=== PATIENT | male | born 1945 | race Caucasian/White ===

== ENCOUNTER 2020-05-22 12:53 | Outpatient (REF) | payer MEDICARE, OTHER, SELFPAY | END 2020-05-22 12:54 | disposition home or self-care (01) | LOC: HO.LAB 12:53 | PROVIDERS: Visit Provider Internal Medicine | DX: Z20.828 Contact with and (suspected) exposure to other viral communicable diseases (principal) | CPT/HCPCS: C9803; U0003 ==

== ENCOUNTER 2020-10-15 14:16 | Outpatient (REF) | payer MEDICARE, OTHER, SELFPAY ==
[2020-10-15 14:20] LABS: MANUAL DIFF FLAG NO
[2020-10-15 14:26] LABS: Basophils Percent Auto 0.6 % (0-2); Eosinophils Absolute Auto 0.1 X10*3/uL (0.0-0.4); Eosinophils Percent Auto 1.4 % (0-4); Hematocrit 49.2 % (42-52); Hemoglobin 16.4 g/dl (14.0-18.0); Imm Gran Abs Auto 0.02 X10*3/uL (0.00-0.03); Imm Gran Pct Auto 0.3 % (0.0-0.4); Lymphocytes Percent Auto 31.1 % (20-40); Mean Corpuscular HGB Conc 33.3 g/dl (31.0-36.0); Mean Corpuscular Hemoglobin 31.4 pg (27.0-33.0); Mean Corpuscular Volume 94.1 fL (80-98); Mean Platelet Volume 9.6 fL (9.4-12.4); Monocytes Absolute Auto 0.6 X10*3/uL (0.1-1.2); Monocytes Percent Auto 9.5 % (2-11); Neutrophils Absolute Auto 3.7 X10*3/uL (2.0-8.3); Neutrophils Percent Auto 57.1 % (45-73); Platelet Count 184 X10*3/uL (160-400); Red Blood Count 5.23 X10*6/uL (4.60-5.80); Red Cell Distribution Width 13.3 % (11.0-16.0); White Blood Count 6.4 X10*3/uL (4.8-10.8)
[2020-10-15 14:38] LABS: Glucose Urine UA NEG (NEG); Leukocyte Esterase Urine NEG (NEG); Nitrite Urine NEG (NEG); Urine Blood NEG (NEG); Urine Ketones NEG (NEG); Urine Protein NEG (NEG-TRACE)
[2020-10-15 14:43] LABS: Appearance Urine CLEAR; Color Urine YELLOW; Estimated Average Glucose 105 mg/dL; Hemoglobin A1c % 5.3 %
[2020-10-15 15:01] LABS: Creatinine Urine 133.07 mg/dL; Microalbum/Creatinine Ratio Ur 5.2 ug/mg cr
[2020-10-15 15:04] LABS: Alanine Aminotransferase 29 U/L (0-40); Albumin Level 4.4 g/dL (3.5-5.0); Alkaline Phosphatase 95 U/L (39-117); Anion Gap 15 (12-20); Aspartate Amino Transferase 22 U/L (5-37); Bilirubin Total 0.7 mg/dL (0.0-1.0); Blood Urea Nitrogen 15 mg/dL (9-16); Calcium 9.1 mg/dL (8.4-10.2); Carbon Dioxide 24 mmol/L (22-29); Chloride 107 mmol/L (96-108); Cholesterol 130 mg/dL; Estimated Glomerular Filt Rate > 60; Glucose Fasting 102 mg/dL (60-99); HDL Cholesterol 37 mg/dL; LDL Cholesterol Calculated 62 mg/dl; Sodium 142 mmol/L (135-145); Total Protein 6.8 g/dL (6.5-8.0); Triglycerides 158 mg/dL
[2020-10-15 15:26] LABS: PSA,Total (Free>4and<10) 5.18 ng/mL (0.00-4.00); Vitamin D 25-OH Total 37.2 ng/mL (>30)
[2020-10-15 15:27] LABS: Reflex LDLD? No
[2020-10-16 11:12] LABS: Free Prostate Spec Ag 0.9 ng/mL; Percent Free Prostate Spec Ag 19 % (calc) (>25); Prostate Specific Ag Total 4.7 ng/mL (< OR = 4.0)
== END 2020-10-15 14:17 | disposition home or self-care (01) ==
LOC: HO.LNP 14:16
PROVIDERS: Visit Provider Internal Medicine
DX: D69.6 Thrombocytopenia, unspecified (principal); R31.9 Hematuria, unspecified; E55.9 Vitamin D deficiency, unspecified; R73.03 Prediabetes; E78.00 Pure hypercholesterolemia, unspecified; R97.20 Elevated prostate specific antigen [PSA]; Z12.5 Encounter for screening for malignant neoplasm of prostate
CPT/HCPCS: 80053; 80061; 81003; 82043; 82306; 83036; 84153; 84154; 85025

== ENCOUNTER 2021-05-28 21:27 | Inpatient (IN) | payer MEDICARE, MEDICAID, SELFPAY ==
--- NOTE | ~2021-05-28 | XR_ITS ---
EXAMINATION: XR CHEST CLINICAL INFORMATION: Hypernatremia COMPARISON: None TECHNIQUE: Frontal view of the chest was obtained. FINDINGS: The lungs are hypoinflated. There is mild patchy and streaky left basilar airspace opacity. Right lung appears clear. No evidence of pneumothorax, pleural effusion, or pulmonary edema. The cardiomediastinal contour is unremarkable. No acute osseous findings are seen. XR/XR chest 1V IMPRESSION: Mild patchy and streaky left basilar opacity which could reflect atelectasis in the setting of low lung volumes, though developing consolidation would be difficult to exclude. Short-term radiographic follow-up may be helpful.
[2021-05-28 21:40] VITALS: BP 108/50; PULSE 99; RESP 17; O2SAT 95; BMI 29.8
--- NOTE | 2021-05-28 21:45 | ECG_ITS ---
Test Reason : HIGH SODIUM Blood Pressure : / mmHG Vent. Rate : 097 BPM Atrial Rate : 097 BPM P-R Int : 142 ms QRS Dur : 082 ms QT Int : 342 ms P-R-T Axes : 052 -54 025 degrees QTc Int : 434 ms Normal sinus rhythm Left anterior fascicular block Inferior infarct , age undetermined Abnormal ECG No previous ECGs available Referred By: Estefania Brady Electronically Signed By:RICARDO DE LA CRUZ MD
--- NOTE | 2021-05-28 21:49 | ED_ITS ---
HPI - General Adult General Chief complaint: General Medical Stated complaint: low soduim Time Seen by Provider: 05/28/21 21:44 Source: EMS and RN notes reviewed Mode of arrival: EMS Limitations: physical limitation ( advanced dementia) History of Present Illness HPI narrative: 75-year-old male [facility] of low [facility]. Patient is bedbound, with advanced dementia, unable to provide history, history was obtained from old record. Patient reportedly is a full code. Unfortunately unable to obtain any history from this patient. Related Data Home Medications Medication Instructions Recorded Confirmed acyclovir 200 mg capsule 200 mg PO BID 05/28/21 05/28/21 aspirin 81 mg chewable tablet 81 mg PO DAILY 05/28/21 05/28/21 divalproex 125 mg capsule,delayed 375 mg PO TID 05/28/21 05/28/21 release sprinkle gabapentin 300 mg capsule 300 mg PO TID 05/28/21 05/28/21 melatonin 3 mg tablet 6 mg PO BEDTIME 05/28/21 05/28/21 olanzapine 5 mg disintegrating 5 mg PO BID PRN 05/28/21 05/28/21 tablet olanzapine 5 mg disintegrating 5 mg PO DAILY 05/28/21 05/28/21 tablet sennosides 8.6 mg-docusate sodium 1 tab PO DAILY 05/28/21 05/28/21 50 mg tablet (Senna-S) tamsulosin 0.4 mg capsule 0.4 mg PO BEDTIME 05/28/21 05/28/21 trazodone 50 mg tablet 25 mg PO BEDTIME PRN 05/28/21 05/28/21 trazodone 50 mg tablet 50 mg PO BEDTIME 05/28/21 05/28/21 Allergies Allergy/AdvReac Type Severity Reaction Status Date / Time No Known Allergies Allergy Verified 05/28/21 23:00 [No Known Allergies*] Review of Systems Review of Systems: All other systems are reviewed and are negative Constitutional: Reports as per HPI and Reports no additional constitutional complaints Eyes: Reports as per HPI and Reports no additional eye complaints Reports system reviewed and no additional complaints, except as documented Cardiovascular: Reports as per HPI and Reports no additional cardiovascular complaints Respiratory: Reports as per HPI and Reports no additional respiratory complaints Gastrointestinal: Reports as per HPI and Reports no additional gastrointestinal complaints Genitourinary: Reports no additional female genitourinary complaints Musculoskeletal: Reports no additional musculoskeletal complaints Skin/Breast: Reports system reviewed and no additional complaints, except as docu Psychiatric: Reports no additional psychiatric complaints Endocrine: Reports no additional endocrine complaints Hematologic/Lymphatic: Reports no additional hematologic/lymphatic complaints Allergic/Immunologic: Reports no additional allergic/immunologic complaints Reports system reviewed and no additional complaints, except as documented and Reports Abnormal speech present. [facility] Social History Social History Advance Directives: No Physical Exam Vital Signs: Vital Signs: Last Vital Signs Temp 99.9 F 05/28/21 22:08 Pulse 97 05/28/21 22:58 Resp 23 H 05/28/21 22:58 BP 141/75 H 05/28/21 22:58 Pulse Ox 95 05/28/21 22:58 Body Mass Index 29.8 vital signs have been reviewed as appeared to be correct. Blood pressure normal. Heart rate normal. Respiration rate normal. Temperature normal. Oxygen saturation normal. Appearance: Alert. No acute distress. Head: Normal external exam. Normocephalic. Atraumatic. No Thomas signs noted. No raccoon eyes noted Eyes: PERRLA. EOMI. Conjunctiva and sclera normal. Eyelids normal. ENT: TM's Normal. Pharynx normal. Uvula midline. Moist mucous membranes. No trismus noted. No drooling noted. No muffled voice noted. Neck: Normal inspection. Neck supple. FROM. No adenopathy. Thyroid Normal. No meningeal signs. No neck mass noted. CVS: Normal heart rate and rhythm. Heart sound normal. No murmurs noted. Pulses normal throughout. Respiratory: No respiratory distress. Painless inspiration. Breath sounds normal. No wheezes/rales/rhonchi noted. Chest nontender. No accessory muscle usage noted or decreased air movement noted. Abdomen: Soft and nontender. Bowel sounds normal in all 4 quadrants. No distention noted. No organomegaly noted. No visible injury noted. Back: No CVA tenderness. Full range of motion noted. Skin: Skin warm and dry. Normal skin color. Normal skin turgor. No rashes/lesions/lacerations noted. Extremities: No lower extremity edema. Extremities exhibit normal range of motion. Extremities nontender. Neuro: Cranial nerve exam: II-XII are grossly intact No motor deficit. No sensory deficit. Reflexes normal. Course Course Course Narrative: assessment and plan. 75-year-old male with history of advanced dementia [facility]. Case discussed with Dr. Man from [facility] who recommended to start the patient on D5 quarter normal saline at 200 cc per hour total of 2-3 L and repeat electrolytes in the morning. Medical Decision Making Medical Records Medical records reviewed: Yes I reviewed the patient's medical records. Lab Data Lab results reviewed: Yes I reviewed the patient's lab results. Result diagrams: 05/28/21 22:51 05/28/21 22:51 Labs: Lab Results 05/28/21 05/28/21 05/28/21 Range/Units 22:41 22:41 22:41 WBC (4.8-10.8) X10*3/uL RBC (4.60-5.80) X10*6/uL Hgb (14.0-18.0) g/dl Hct (42.0-52.0) % MCV (80.0-98.0) fL MCH (27.0-33.0) pg MCHC (31.0-36.0) g/dl RDW (11.0-16.0) % Plt Count (160-400) X10*3/uL MPV (9.4-12.4) fL Immature Gran % (Auto) (0.0-0.4) % Neut % (Auto) (45-73) % Lymph % (Auto) (20-40) % [place] % (Auto) (2-11) % Eos % (Auto) (0-4) % Baso % (Auto) (0-2) % Lymph # (Auto) (1.2-4.9) X10*3/uL [place] # (Auto) (0.1-1.2) X10*3/uL Eos # (Auto) (0.0-0.4) X10*3/uL Baso # (Auto) (0.0-0.2) X10*3/uL Abs Immat Gran (auto) (0.00-0.03) X10*3/uL Absolute Neuts (auto) (2.0-8.3) x10*3/uL Absolute Nucleated RBC (0.0-0.012) X10*3/uL Nucleated RBC % (auto) (0.0-0.2) /100WBC Sodium (135-145) mmol/L Potassium (3.3-5.1) mmol/L Chloride (96-108) mmol/L Carbon Dioxide (22-29) mmol/L Anion Gap (12-20) BUN (9-16) mg/dL Creatinine (0.5-1.4) mg/dL Estim Creat Clear Calc Estimated GFR Random Glucose (60-115) mg/dL Lactic Acid (0.5-2.0) mmol/L Calcium (8.4-10.2) mg/dL Total Bilirubin (0.0-1.0) mg/dL Direct Bilirubin (0.0-0.5) mg/dL AST (5-37) U/L ALT (0-40) U/L Alkaline Phosphatase (39-117) U/L Troponin I High Sens (<3.5-35.0) ng/L B-Natriuretic Peptide (<100) pg/mL Total Protein (6.5-8.0) g/dL Albumin (3.5-5.0) g/dL Lipase (8-78) U/L Urine Color DK YELLOW Urine Appearance CLEAR Urine pH 6.0 (5.0-8.0) Ur Specific [place] >= 1.030 H (1.005-1.025) Urine Protein TRACE (NEG-TRACE) MG/DL Urine Glucose (UA) NEG (NEG) MG/DL Urine Ketones 15 (NEG) MG/DL Urine Blood NEG (NEG) Urine Nitrite NEG (NEG) Ur Leukocyte Esterase NEG (NEG) Urine Osmolality (373-1093) mosm/kg Ur Random Sodium 24.0 mmol/L Ur Random Potassium 96.6 mmol/L COVID-19 ([facility]) Negative (Negative) COVID-19 Clin Com See Note 05/28/21 05/28/21 05/28/21 Range/Units 22:41 22:51 22:51 WBC 6.9 (4.8-10.8) X10*3/uL RBC 5.49 (4.60-5.80) X10*6/uL Hgb 17.1 (14.0-18.0) g/dl Hct 53.8 H (42.0-52.0) % MCV 98.0 (80.0-98.0) fL MCH 31.1 (27.0-33.0) pg MCHC 31.8 (31.0-36.0) g/dl RDW 14.4 (11.0-16.0) % Plt Count 142 L (160-400) X10*3/uL MPV 10.1 (9.4-12.4) fL Immature Gran % (Auto) 0.3 (0.0-0.4) % Neut % (Auto) 65.0 (45-73) % Lymph % (Auto) 18.8 L (20-40) % [place] % (Auto) 12.4 H (2-11) % Eos % (Auto) 2.9 (0-4) % Baso % (Auto) 0.6 (0-2) % Lymph # (Auto) 1.3 (1.2-4.9) X10*3/uL [place] # (Auto) 0.9 (0.1-1.2) X10*3/uL Eos # (Auto) 0.2 (0.0-0.4) X10*3/uL Baso # (Auto) 0.0 (0.0-0.2) X10*3/uL Abs Immat Gran (auto) 0.02 (0.00-0.03) X10*3/uL Absolute Neuts (auto) 4.5 (2.0-8.3) x10*3/uL Absolute Nucleated RBC 0.000 (0.0-0.012) X10*3/uL Nucleated RBC % (auto) 0.0 (0.0-0.2) /100WBC Sodium 158 H (135-145) mmol/L Potassium 3.6 (3.3-5.1) mmol/L Chloride 117 H (96-108) mmol/L Carbon Dioxide 32 H (22-29) mmol/L Anion Gap 13 (12-20) BUN 43 H D (9-16) mg/dL Creatinine 0.91 (0.5-1.4) mg/dL Estim Creat Clear Calc 87.1 Estimated GFR > 60 Random Glucose 116 H (60-115) mg/dL Lactic Acid (0.5-2.0) mmol/L Calcium 9.1 (8.4-10.2) mg/dL Total Bilirubin 0.5 (0.0-1.0) mg/dL Direct Bilirubin 0.2 (0.0-0.5) mg/dL AST 39 H D (5-37) U/L ALT 52 H (0-40) U/L Alkaline Phosphatase 102 (39-117) U/L Troponin I High Sens (<3.5-35.0) ng/L B-Natriuretic Peptide (<100) pg/mL Total Protein 6.4 L (6.5-8.0) g/dL Albumin 3.7 (3.5-5.0) g/dL Lipase 17 (8-78) U/L Urine Color Urine Appearance Urine pH (5.0-8.0) Ur Specific [place] (1.005-1.025) Urine Protein (NEG-TRACE) MG/DL Urine Glucose (UA) (NEG) MG/DL Urine Ketones (NEG) MG/DL Urine Blood (NEG) Urine Nitrite (NEG) Ur Leukocyte Esterase (NEG) Urine Osmolality 1115 H (373-1093) mosm/kg Ur Random Sodium mmol/L Ur Random Potassium mmol/L COVID-19 ([facility]) (Negative) COVID-19 Clin Com 05/28/21 05/28/21 05/28/21 Range/Units 22:51 22:51 22:51 WBC (4.8-10.8) X10*3/uL RBC (4.60-5.80) X10*6/uL Hgb (14.0-18.0) g/dl Hct (42.0-52.0) % MCV (80.0-98.0) fL MCH (27.0-33.0) pg MCHC (31.0-36.0) g/dl RDW (11.0-16.0) % Plt Count (160-400) X10*3/uL MPV (9.4-12.4) fL Immature Gran % (Auto) (0.0-0.4) % Neut % (Auto) (45-73) % Lymph % (Auto) (20-40) % [place] % (Auto) (2-11) % Eos % (Auto) (0-4) % Baso % (Auto) (0-2) % Lymph # (Auto) (1.2-4.9) X10*3/uL [place] # (Auto) (0.1-1.2) X10*3/uL Eos # (Auto) (0.0-0.4) X10*3/uL Baso # (Auto) (0.0-0.2) X10*3/uL Abs Immat Gran (auto) (0.00-0.03) X10*3/uL Absolute Neuts (auto) (2.0-8.3) x10*3/uL Absolute Nucleated RBC (0.0-0.012) X10*3/uL Nucleated RBC % (auto) (0.0-0.2) /100WBC Sodium (135-145) mmol/L Potassium (3.3-5.1) mmol/L Chloride (96-108) mmol/L Carbon Dioxide (22-29) mmol/L Anion Gap (12-20) BUN (9-16) mg/dL Creatinine (0.5-1.4) mg/dL Estim Creat Clear Calc Estimated GFR Random Glucose (60-115) mg/dL Lactic Acid 2.8 H* (0.5-2.0) mmol/L Calcium (8.4-10.2) mg/dL Total Bilirubin (0.0-1.0) mg/dL Direct Bilirubin (0.0-0.5) mg/dL AST (5-37) U/L ALT (0-40) U/L Alkaline Phosphatase (39-117) U/L Troponin I High Sens 8.4 (<3.5-35.0) ng/L B-Natriuretic Peptide < 10 (<100) pg/mL Total Protein (6.5-8.0) g/dL Albumin (3.5-5.0) g/dL Lipase (8-78) U/L Urine Color Urine Appearance Urine pH (5.0-8.0) Ur Specific [place] (1.005-1.025) Urine Protein (NEG-TRACE) MG/DL Urine Glucose (UA) (NEG) MG/DL Urine Ketones (NEG) MG/DL Urine Blood (NEG) Urine Nitrite (NEG) Ur Leukocyte Esterase (NEG) Urine Osmolality (373-1093) mosm/kg Ur Random Sodium mmol/L Ur Random Potassium mmol/L COVID-19 ([facility]) (Negative) COVID-19 Clin Com Imaging Data Chest x-ray: Radiologist's impression: Mild patchy and streaky left basilar opacity which could reflect atelectasis in the setting of low lung volumes, though developing consolidation would be difficult to exclude. Short-term radiographic follow-up may be helpful. ? ECG Data Attestation: I personally reviewed and interpreted this ECG as follows: Interpretation: Normal sinus rhythm at 97 beats per minute, left axis deviation, normal intervals. Discharge Plan Discharge Clinical Impression: Acute hypernatremia Patient Disposition: Admitted As Inpatient Prescriptions: No Action trazodone 50 mg Tablet 50 mg PO BEDTIME RF: 0 trazodone 50 mg Tablet 25 mg PO BEDTIME PRN (Reason: Insomnia) RF: 0 sennosides-docusate sodium [Senna-S] 8.6-50 mg Tablet 1 tab PO DAILY RF: 0 melatonin 3 mg Tablet 6 mg PO BEDTIME RF: 0 tamsulosin 0.4 mg Capsule 0.4 mg PO BEDTIME RF: 0 gabapentin 300 mg Capsule 300 mg PO TID RF: 0 aspirin 81 mg Tablet,Chewable 81 mg PO DAILY RF: 0 acyclovir 200 mg Capsule 200 mg PO BID RF: 0 divalproex 125 mg Capsule, Delayed Rel Sprinkle 375 mg PO TID RF: 0 olanzapine 5 mg Tablet,Disintegrating 5 mg PO DAILY RF: 0 olanzapine 5 mg Tablet,Disintegrating 5 mg PO BID PRN (Reason: aggressive behaviors) RF: 0
[2021-05-28 22:08] VITALS: TEMP 37.7
--- NOTE | 2021-05-28 22:26 | PHA.MEDREC ---
Pharmacy Consult ? Medication Reconciliation Pharmacy has completed the medication reconciliation.
[2021-05-28 22:55] LABS: Appearance Urine CLEAR; Color Urine DK YELLOW; Glucose Urine UA NEG (NEG); Leukocyte Esterase Urine NEG (NEG); Nitrite Urine NEG (NEG); Specific Gravity - Urine >= 1.030 (1.005-1.025); Urine Blood NEG (NEG); Urine Ketones 15 MG/DL (NEG); Urine Protein TRACE MG/DL (NEG-TRACE)
[2021-05-28 22:56] LABS: MANUAL DIFF FLAG NO
[2021-05-28 22:57] LABS: Basophils Percent Auto 0.6 % (0-2); Eosinophils Absolute Auto 0.2 X10*3/uL (0.0-0.4); Eosinophils Percent Auto 2.9 % (0-4); Hematocrit 53.8 % (42.0-52.0); Hemoglobin 17.1 g/dl (14.0-18.0); Imm Gran Abs Auto 0.02 X10*3/uL (0.00-0.03); Imm Gran Pct Auto 0.3 % (0.0-0.4); Lymphocytes Absolute Auto 1.3 X10*3/uL (1.2-4.9); Lymphocytes Percent Auto 18.8 % (20-40); Mean Corpuscular HGB Conc 31.8 g/dl (31.0-36.0); Mean Corpuscular Hemoglobin 31.1 pg (27.0-33.0); Mean Platelet Volume 10.1 fL (9.4-12.4); Monocytes Absolute Auto 0.9 X10*3/uL (0.1-1.2); Monocytes Percent Auto 12.4 % (2-11); Neutrophils Absolute Auto 4.5 x10*3/uL (2.0-8.3); Platelet Count 142 X10*3/uL (160-400); Red Blood Count 5.49 X10*6/uL (4.60-5.80); Red Cell Distribution Width 14.4 % (11.0-16.0); White Blood Count 6.9 X10*3/uL (4.8-10.8)
[2021-05-28 22:58] VITALS: BP 141/75; PULSE 97; RESP 23; O2SAT 95
[2021-05-28 23:01] LABS: Potassium Urine Random 96.6 mmol/L
[2021-05-28 23:03] LABS: COVID-19 Test Negative (Negative)
[2021-05-28 23:08] LABS: Osmolality Urine 1115 mosm/kg (373-1093)
[2021-05-28 23:19] LABS: Alanine Aminotransferase 52 U/L (0-40); Albumin Level 3.7 g/dL (3.5-5.0); Alkaline Phosphatase 102 U/L (39-117); Anion Gap 13 (12-20); Aspartate Amino Transferase 39 U/L (5-37); B Type Natriuretic Peptide < 10 pg/mL (<100); Bilirubin Direct 0.2 mg/dL (0.0-0.5); Bilirubin Total 0.5 mg/dL (0.0-1.0); Blood Urea Nitrogen 43 mg/dL (9-16); Calcium 9.1 mg/dL (8.4-10.2); Carbon Dioxide 32 mmol/L (22-29); Chloride 117 mmol/L (96-108); Creatinine Clr Calc Pharmacy 87.1; Estimated Glomerular Filt Rate > 60; Glucose Random 116 mg/dL (60-115); Lactic Acid 2.8 mmol/L (0.5-2.0); Lipase 17 U/L (8-78); Potassium 3.6 mmol/L (3.3-5.1); Sodium 158 mmol/L (135-145); Total Protein 6.4 g/dL (6.5-8.0); Troponin-I High Sensitivity 8.4 ng/L (<3.5-35.0)
--- NOTE | 2021-05-28 23:43 | PC.NURSE ---
call out to renal
[2021-05-29] VITALS (7 sets, daily range): BP systolic 99–126; BP diastolic 58–93; PULSE 80–98; RESP 15–21; TEMP 36.1–37.7; O2SAT 94–96
--- NOTE | 2021-05-29 00:15 | PM.IMHP ---
History of Present Illness Date of Service: 05/29/21 Chief Complaint: Hypernatremia 75-year-old male with a past medical history of Alzheimer's dementia with behavioral issues, BPH, history of recurrent UTIs, urinary retention, recent history of COVID-19 infection in March of 2021; history of recurrent falls, of history of seizure; presented to the hospital today with a chief complaint of drowsiness/lethargy/elevated sodium levels noted the [facility]. Patient is drowsy lethargic, unable to provide any information. Protecting airways. Breathing comfortably. Spoke to the patient's daughter Cami who is the healthcare proxy mentioned that since March patient has been gradually declining; patient had multiple falls and he was admitted to [facility] in March when he was diagnosed with COVID-19 infection, urinary retention, UTI-patient during that admission had behavioral issues and was in the psych unit for his weak and subsequently sent to the rehab place; base he had a fall with head strike on March 27, 2021, sent to the [facility]-in the ER patient had seizure; and subsequently patient was admitted to the floors and with improvement and clinically patient was medically cleared but was unable to place the patient any rehab until May 24, 2021; Today patient's daughter received a call from the [facility] mentioned that patient is drowsy lethargic and was noted to have elevated sodium levels on the labs, unable to obtain IV access and mentioning patient being sent to the hospital for further evaluation. Patient started mentioned that when she saw the patient today seems to be drowsy lethargic and doses off; Mentioned that before septum were used to walk with the help of a walker but lately he is mostly bedbound. Mentioned that he had few speech and swallow evaluations and was finally recommended solid diet. Review of all other systems is limited given patient's advanced dementia. ER course: Per ER team patient noted to be drowsy, unable to provide any history, on labs noted to have severely elevated sodium of 158-discussed Dr. esquivel from Nephrology who recommended to 200 cc of D5 1/4 NS and repeat sodium levels in 6 hours. PMFSH Pertinent family history: pt unable to provide info Social History Advance Directives: No Meds Allergies Allergy/AdvReac Type Severity Reaction Status Date / Time No Known Allergies Allergy Verified 05/28/21 23:00 [No Known Allergies*] Active Medications: Current Medications Acetaminophen (Acetaminophen 325 Mg Tablet) 650 mg PO Q6H PRN PRN Reason: Pain, Mild (Pain Scale 1-3) Acyclovir (Acyclovir 200 Mg Capsule) 200 mg PO BID [facility] Aspirin (Aspirin 81 Mg Tab.Chew) 81 mg PO DAILY [facility] Divalproex Sodium (Divalproex Sodium Sprinkles 125 Mg ) 375 mg PO TID [facility] Gabapentin (Gabapentin 300 Mg Capsule) 300 mg PO TID [facility] Heparin Sodium (Porcine) (Heparin Sodium,Porcine 5,000 Unit/Ml Vial) 5,000 unit SUBCUT Q8H [facility] Dextrose/Sodium Chloride (D51/4ns) 1,000 mls @ 200 mls/hr IVCONT .Q5H [facility] Stop: 05/29/21 09:44 Melatonin (Melatonin 3 Mg Tablet) 6 mg PO BEDTIME PRN PRN Reason: Insomnia Melatonin (Melatonin 3 Mg Tablet) 6 mg PO BEDTIME [facility] Olanzapine (Olanzapine 5 Mg Tablet) 5 mg PO BID PRN PRN Reason: aggressive behaviors Olanzapine (Olanzapine 5 Mg Tablet) 5 mg PO DAILY [facility] Pharmacy Consult (Consult Rx Perform Med Rec) 1 each MISCELLANE ONCE PRN PRN Reason: Consult order Senna/Docusate Sodium (Sennosides/Docusate Sodium Tablet) 1 tab PO DAILY [facility] Sodium Chloride (0.9 % Sodium Chloride Flush 3 Ml Syringe) 3 ml IVFLUSH QSHIFT [facility] Tamsulosin HCl (Tamsulosin Hcl 0.4 Mg Capsule) 0.4 mg PO BEDTIME [facility] Trazodone HCl (Trazodone Hcl 25 Mg Halftab) 25 mg PO BEDTIME PRN PRN Reason: Insomnia Trazodone HCl (Trazodone Hcl 50 Mg Tablet) 50 mg PO BEDTIME [facility] Home Medications Medication Instructions Recorded Confirmed Last Taken Type acyclovir 200 mg capsule 200 mg PO BID 05/28/21 05/28/21 Unknown History aspirin 81 mg chewable tablet 81 mg PO DAILY 05/28/21 05/28/21 05/27/21 History divalproex 125 mg capsule,delayed 375 mg PO TID 05/28/21 05/28/21 05/27/21 History release sprinkle gabapentin 300 mg capsule 300 mg PO TID 05/28/21 05/28/21 05/28/21 History melatonin 3 mg tablet 6 mg PO BEDTIME 05/28/21 05/28/21 05/27/21 History olanzapine 5 mg disintegrating 5 mg PO BID PRN 05/28/21 05/28/21 Unknown History tablet olanzapine 5 mg disintegrating 5 mg PO DAILY 05/28/21 05/28/21 05/28/21 History tablet sennosides 8.6 mg-docusate sodium 1 tab PO DAILY 05/28/21 05/28/21 05/28/21 History 50 mg tablet (Senna-S) tamsulosin 0.4 mg capsule 0.4 mg PO BEDTIME 05/28/21 05/28/21 05/27/21 History trazodone 50 mg tablet 25 mg PO BEDTIME PRN 05/28/21 05/28/21 Unknown History trazodone 50 mg tablet 50 mg PO BEDTIME 05/28/21 05/28/21 05/27/21 History Physical Exam Vital Signs and Narrative: Vital Signs: Last Vital Signs Temp 99.9 F 05/28/21 22:08 Pulse 97 05/28/21 22:58 Resp 23 H 05/28/21 22:58 BP 141/75 H 05/28/21 22:58 Pulse Ox 95 05/28/21 22:58 Body Mass Index 29.8 Gen: Appears be in no acute distress HEENT: NCAT, Moist mucosa. Pulmonary: Course breath sounds, fair air entry CVS: Normal S1-S2 Abdomen: BS+, Soft, Nontender Extremities: Warm well perfused Neuro: Drowsy and lethargic Results Labs CBC and Chem 7: 05/29/21 05:54 05/29/21 05:54 Labs: Laboratory Results - last 24 hr 05/28/21 05/28/21 05/28/21 22:41 22:41 22:41 MCV MCH MCHC RDW Plt Count MPV Immature Gran % (Auto) Neut % (Auto) Lymph % (Auto) [place] % (Auto) Eos % (Auto) Baso % (Auto) Lymph # (Auto) [place] # (Auto) Eos # (Auto) Baso # (Auto) Abs Immat Gran (auto) Absolute Neuts (auto) Absolute Nucleated RBC Nucleated RBC % (auto) Anion Gap Estim Creat Clear Calc Estimated GFR Random Glucose Lactic Acid Calcium Total Bilirubin Direct Bilirubin AST ALT Alkaline Phosphatase Troponin I High Sens B-Natriuretic Peptide Total Protein Albumin Lipase Urine Color DK YELLOW Urine Appearance CLEAR Urine pH 6.0 Ur Specific [place] >= 1.030 H Urine Protein TRACE Urine Glucose (UA) NEG Urine Ketones 15 Urine Blood NEG Urine Nitrite NEG Ur Leukocyte Esterase NEG Urine Osmolality Ur Random Sodium 24.0 Ur Random Potassium 96.6 COVID-19 ([facility]) Negative COVID-19 Clin Com See Note 05/28/21 05/28/21 05/28/21 22:41 22:51 22:51 MCV 98.0 MCH 31.1 MCHC 31.8 RDW 14.4 Plt Count 142 L MPV 10.1 Immature Gran % (Auto) 0.3 Neut % (Auto) 65.0 Lymph % (Auto) 18.8 L [place] % (Auto) 12.4 H Eos % (Auto) 2.9 Baso % (Auto) 0.6 Lymph # (Auto) 1.3 [place] # (Auto) 0.9 Eos # (Auto) 0.2 Baso # (Auto) 0.0 Abs Immat Gran (auto) 0.02 Absolute Neuts (auto) 4.5 Absolute Nucleated RBC 0.000 Nucleated RBC % (auto) 0.0 Anion Gap 13 Estim Creat Clear Calc 87.1 Estimated GFR > 60 Random Glucose 116 H Lactic Acid Calcium 9.1 Total Bilirubin 0.5 Direct Bilirubin 0.2 AST 39 H D ALT 52 H Alkaline Phosphatase 102 Troponin I High Sens B-Natriuretic Peptide Total Protein 6.4 L Albumin 3.7 Lipase 17 Urine Color Urine Appearance Urine pH Ur Specific [place] Urine Protein Urine Glucose (UA) Urine Ketones Urine Blood Urine Nitrite Ur Leukocyte Esterase Urine Osmolality 1115 H Ur Random Sodium Ur Random Potassium COVID-19 ([facility]) COVID-19 Clin Com 05/28/21 05/28/21 05/28/21 22:51 22:51 22:51 MCV MCH MCHC RDW Plt Count MPV Immature Gran % (Auto) Neut % (Auto) Lymph % (Auto) [place] % (Auto) Eos % (Auto) Baso % (Auto) Lymph # (Auto) [place] # (Auto) Eos # (Auto) Baso # (Auto) Abs Immat Gran (auto) Absolute Neuts (auto) Absolute Nucleated RBC Nucleated RBC % (auto) Anion Gap Estim Creat Clear Calc Estimated GFR Random Glucose Lactic Acid 2.8 H* Calcium Total Bilirubin Direct Bilirubin AST ALT Alkaline Phosphatase Troponin I High Sens 8.4 B-Natriuretic Peptide < 10 Total Protein Albumin Lipase Urine Color Urine Appearance Urine pH Ur Specific [place] Urine Protein Urine Glucose (UA) Urine Ketones Urine Blood Urine Nitrite Ur Leukocyte Esterase Urine Osmolality Ur Random Sodium Ur Random Potassium COVID-19 ([facility]) COVID-19 Clin Com Imaging Radiologist's Impressions: Impressions Chest X-Ray 05/28/21 21:44 IMPRESSION: Mild patchy and streaky left basilar opacity which could reflect atelectasis in the setting of low lung volumes, though developing consolidation would be difficult to exclude. Short-term radiographic follow-up may be helpful. Assessment and Plan (1) Acute hypernatremia: Status: Acute (2) Dementia: Status: Acute 75-year-old male with a past medical history of Alzheimer's dementia with behavioral issues, BPH, history of recurrent UTIs, urinary retention, recent history of COVID-19 infection in March of 2021; history of recurrent falls, of history of seizure; presented to the hospital today with a chief complaint of drowsiness/lethargy/elevated sodium levels noted the [facility]. Hypernatremia: Nephrology was notified. Recommended D5 1/4 NSS cc per hour. Repeat sodium levels. History of seizure: Patient on Depakote. Will continue. Seizure precautions/aspiration precautions. Patient failed bedside swallow screen. Depakote changed to IV valproic acid Speech and swallow eval History of dementia with behavioral concerns: Patient on Zyprexa. Will continue. Abnormal chest x-ray: Chest x-ray showed left basilar patchy infiltrate-atelectasis versus developing consolidation. Patient has no fever or leukocytosis. Will follow the fever curve. Hold antibiotics for now. DVT prophylaxis: Subcu heparin Code status: DNR/DNI. Discussed with the patient's healthcare proxy/daughter-Cami. Healthcare proxy invoked Off Note: Things to follow up by day hospitalist once Care taken over at 7AM on 05/29/21: ->Sodium levels Renal consult Inputs Swallow eval Quality Stroke Does the patient have a stroke diagnosis?: No VTE Prior VTE?: No VTE Risk Level:: Medical - moderate - high VTE Device Contraindication: Treatment Not Indicated VTE Drug Contraindication: N/A - Med Ordered
[2021-05-29 00:41] LABS: Chloride Urine Random < 20.0 mmol/L
[2021-05-29 00:54] LABS: Reflex Lactate? Lactic Acid Added
[2021-05-29 01:13] LABS: ~Lactic Acid-LAB USE ONLY 1.8 mmol/L (0.5-2.0)
--- NOTE | 2021-05-29 01:14 | PC.NURSE ---
Dr Elliott aware of pt fail of swallow screen
[2021-05-29] MEDS: Dextrose 5 % and 0.2 % NaCl 1,000 ML 200 ML IVCONT ×2 (01:15→06:25)
[2021-05-29] MEDS: Heparin Sodium,Porcine 5,000 UNIT/ML VIAL 5000 UNIT SUBCUT ×3 (01:17→14:58)
[2021-05-29 01:22] LABS: Anion Gap 14 (12-20); Blood Urea Nitrogen 43 mg/dL (9-16); Calcium 8.8 mg/dL (8.4-10.2); Carbon Dioxide 30 mmol/L (22-29); Chloride 119 mmol/L (96-108); Creatinine Clr Calc Pharmacy 91.1; Estimated Glomerular Filt Rate > 60; Glucose Random 71 mg/dL (60-115); Potassium 4.1 mmol/L (3.3-5.1); Sodium 159 mmol/L (135-145)
--- NOTE | 2021-05-29 01:39 | PC.NURSE ---
This RN contacted [facility] for crisis intake over phone. Per Janeth at [facility], executive relations specialist will call back to perform intake as they are unavailable to take the call at this time. No timeframe given for call back. Report given to MICHAEL Angulo.
[2021-05-29 03:31] LABS: Anion Gap 10 (12-20); Blood Urea Nitrogen 43 mg/dL (9-16); Calcium 8.6 mg/dL (8.4-10.2); Carbon Dioxide 32 mmol/L (22-29); Chloride 117 mmol/L (96-108); Creatinine Clr Calc Pharmacy 92.1; Estimated Glomerular Filt Rate > 60; Glucose Random 135 mg/dL (60-115); Potassium 3.4 mmol/L (3.3-5.1); Sodium 156 mmol/L (135-145)
[2021-05-29 06:21] LABS: Basophils Percent Auto 0.6 % (0-2); Eosinophils Absolute Auto 0.2 X10*3/uL (0.0-0.4); Eosinophils Percent Auto 2.8 % (0-4); Hemoglobin 15.6 g/dl (14.0-18.0); Imm Gran Abs Auto 0.02 X10*3/uL (0.00-0.03); Imm Gran Pct Auto 0.3 % (0.0-0.4); MANUAL DIFF FLAG SCAN; PLT CLUMP 1; Red Cell Distribution Width 14.3 % (11.0-16.0); SCAN SMEAR FLAG 1
[2021-05-29 06:23] LABS: Hematocrit 50.5 % (42.0-52.0); Lymphocytes Absolute Auto 1.6 X10*3/uL (1.2-4.9); Lymphocytes Percent Auto 21.9 % (20-40); Mean Corpuscular HGB Conc 30.9 g/dl (31.0-36.0); Mean Corpuscular Hemoglobin 30.1 pg (27.0-33.0); Mean Corpuscular Volume 97.5 fL (80.0-98.0); Mean Platelet Volume 11.1 fL (9.4-12.4); Monocytes Absolute Auto 0.9 X10*3/uL (0.1-1.2); Monocytes Percent Auto 12.9 % (2-11); Neutrophils Absolute Auto 4.4 x10*3/uL (2.0-8.3); Neutrophils Percent Auto 61.5 % (45-73); Platelet Count 111 X10*3/uL (160-400); Red Blood Count 5.18 X10*6/uL (4.60-5.80); White Blood Count 7.1 X10*3/uL (4.8-10.8)
[2021-05-29 06:25] LABS: Anion Gap 11 (12-20); Calcium 8.4 mg/dL (8.4-10.2); Carbon Dioxide 30 mmol/L (22-29); Chloride 117 mmol/L (96-108); Creatinine Clr Calc Pharmacy 81.7; Estimated Glomerular Filt Rate > 60; Glucose Random 149 mg/dL (60-115); Magnesium 2.4 mg/dL (1.6-2.6); Potassium 3.9 mmol/L (3.3-5.1); Sodium 154 mmol/L (135-145)
[2021-05-29 07:39] LABS: SLIDE REVIEW VERIFIED
--- NOTE | 2021-05-29 09:28 | PC.NURSE ---
pt alert, oriented to self. vss. Speech at bedside doing swallow study at this time. pt's PO meds held until swallow study completed. fluids infusing without difficulty, pt tolerating well. will follow-up with speech.
[2021-05-29 09:39] LABS: Blood Urea Nitrogen 40 mg/dL (9-16)
[2021-05-29] MEDS: OLANZapine 5 MG TABLET PO (09:51)
[2021-05-29] MEDS: Aspirin 81 MG TAB.CHEW PO (09:51)
[2021-05-29] MEDS: Gabapentin 300 MG CAPSULE PO ×2 (09:51→14:39)
[2021-05-29] MEDS: Acyclovir 200 MG CAPSULE PO (09:52)
[2021-05-29] MEDS: Sennosides/Docusate Sodium TABLET 1 TAB PO (09:52)
--- NOTE | 2021-05-29 10:06 | PC.NURSE ---
po challenge done by speech who recommends puree soft diet. pt given meds as documented. pt unable to respond to question of pain, no signs of pain noted. pt awaiting bed assignment.
--- NOTE | 2021-05-29 11:39 | MHC.SL.SWA ---
Speech Pathologist Impression: Risk of Aspiration Oralpharyngeal Dysphagia Risk of Aspiration Due to: Reduced Cognition Dysphasia Diet Status: Upgrade from NPO to NDD1 PUREED solids and THIN liquids via cup sips only (NO STRAWS) Liquid Consistency and Strategies for Safe Swallow: Liquid Intake Recommendation: Thin Liquid Intake Strategies: Small Sips No Straws Solid Food Consistency: Dietary Recommendations: Pureed (NDD1) Oral Medication Intake: Crushed with Puree Compensatory Strategies and Precautions to be Taken for Safe Swallow: Supervision While Eating and Drinking for Safe Swallow: Total Assistance Swallowing Recommended Treatments: Compens. Strategy Educat. Frequency/Duration: 1x/day M-F during pt's hospitalization Dental Assistant Clinican/Clinical Fellow: No Supervisory Statement: I have reviewed and agree with the student/clinical fellow's documentation: N/A Speech Language Pathologist: Kim Monroe M.A., CCC-TREE PRUNER
--- NOTE | 2021-05-29 12:39 | MHC.CM.ED ---
Patient was in ER on 05/28. Rehab was recommended at that time. Patient and son declined and patient was discharged home. Received telephoen call from Lesvia at [facility]. Patient and son are now agreeable to placement. Continue to monitor for d/c needs.
--- NOTE | 2021-05-29 12:50 | MHC.CM.PN ---
Attempted to meet with patient in regards to discharge planning. Patient's HCP is invoked due to advanced dementia. Spoke with patient's daughter/HCP, Cami via telehone at [phone]. Patient was at [facility] before being transferred to [facility]. Patient was transferred to [facility] for LTC on 05/24. Copy of HCP and MLOST verified to be obtained from [facility]. Anticipate patient will return via BLS. Patient received 2 Covid vaccines. IMM explained and sent to Cami via certified mail to [address] [place] [address] [place] [address]. Continue to monitor for d/c needs.
[2021-05-29] MEDS: Dextrose 5 % 1,000 ML 125 ML IVCONT (14:30)
--- NOTE | 2021-05-29 20:16 | PC.NURSE ---
FLOOR UNABLE TO TAKE REPORT.
--- NOTE | 2021-05-29 23:21 | CONS_ITS ---
DATE OF SERVICE: REASON FOR CONSULTATION: Consult requested by the medical team to evaluate and help in management of patient with hypernatremia. HISTORY OF PRESENT ILLNESS: The patient is a 75-year-old gentleman with past medical history of Alzheimer's dementia, history of behavioral issues, BPH, recurrent UTI, urinary retention, who presented to the hospital and was noted to have hypernatremia with a sodium level above 150. He had COVID-19 infection in March of 2021. He has a history of recurrent falls, elevated sodium was noted in the care home. He was also drowsy and lethargic. He is not able to give any history and all history was obtained from the patient's medical record. The patient is presently on D5 half-normal saline. He walks with the help of a walker usually, but recently he has been bed bound. In the ER, the patient again was drowsy, is hemodynamically stable. His sodium level was 158. PAST MEDICAL HISTORY: Include history of Alzheimer's dementia, behavioral issues, BPH, history of recurrent UTI, urinary retention, history of recent COVID-19 infection, history of recurrent falls, seizures. MEDICATIONS: As an outpatient include acyclovir, divalproex, gabapentin, melatonin, olanzapine, Flomax, and trazodone. PAST SURGICAL HISTORY: Unknown. PERSONAL AND SOCIAL HISTORY: Unknown. PHYSICAL EXAMINATION: GENERAL: The patient is resting in the ER bed, lethargic, moving his extremities to painful stimuli. VITAL SIGNS: Blood pressure was 141/75, pulse 97, temperature 99.9 degrees Fahrenheit. HEENT: Shows pupils equal bilaterally and reactive to light. No jugular venous distention is noted. There is no scleral icterus or conjunctival congestion. NECK: Supple. Mucosa dry. CARDIOVASCULAR SYSTEM: S1, S2 without rub or murmur. RESPIRATORY: Mildly decreased in the bases. No crepitation or rhonchi is noted. ABDOMEN: Soft, nontender. Bowel sounds normal. EXTREMITIES: Showed no edema. There is no peripheral cyanosis or clubbing. NEURO EXAM: Essentially nonfocal. LABORATORY DATA: Labs done today, WBC 7.1, hemoglobin 15.6, hematocrit 50.5, platelets were 111. Sodium 154, potassium 3.9, chloride 117, CO2 30, BUN 40, creatinine 0.97, estimated GFR more than 60. Calcium 8.4, magnesium 2.4. Urinalysis shows yellow urine, which is clear, specific gravity 1.030, protein trace, glucose negative, ketone 15, urine osmolality 1115. Urine sodium 24. IMPRESSION: 1. A 75-year-old male with severe hypernatremia. The hyponatremia is likely due to free water deficit. I did an elevated urine osmolality, this is not consistent with diabetes insipidus. 2. Hypokalemia due to decreased p.o. intake. It is unclear if there are any GI losses. 3. Altered mental status and is worsen by hypernatremia. RECOMMENDATION: At this juncture, I would recommend discontinuing the IV fluids with saline. I recommended the medical team is changing over to D5 water at 125 mL/h. I recommend correcting not more than 8-10 mEq sodium over the next 24 hours. I recommend aggressive potassium replacement for this patient as he is hypokalemic. His magnesium level is acceptable. Repeat potassium level again in the a.m. The above plan was discussed with the medical team. Thank you for allowing me to participate in medical management of the patient. MD TARYN Salcido/MELANIE / [phone]
[2021-05-29 23:32] LABS: Anion Gap 12 (12-20); Blood Urea Nitrogen 28 mg/dL (9-16); Calcium 8.2 mg/dL (8.4-10.2); Carbon Dioxide 28 mmol/L (22-29); Chloride 111 mmol/L (96-108); Creatinine Clr Calc Pharmacy 97.8; Estimated Glomerular Filt Rate > 60; Glucose Random 115 mg/dL (60-115); Potassium 3.2 mmol/L (3.3-5.1); Sodium 148 mmol/L (135-145)
[2021-05-29] MEDS: Dextrose 5 % 1,000 ML 50 ML IVCONT (23:44)
[2021-05-30] VITALS (7 sets, daily range): BP systolic 100–154; BP diastolic 57–73; PULSE 70–89; RESP 16–20; TEMP 36.3–37.1; O2SAT 91–97; BMI 29.8
[2021-05-30] MEDS: Heparin Sodium,Porcine 5,000 UNIT/ML VIAL 5000 UNIT SUBCUT ×2 (00:48→09:37)
[2021-05-30 07:02] LABS: PLT CLUMP 1
[2021-05-30 07:04] LABS: Hematocrit 46.1 % (42.0-52.0); Hemoglobin 14.9 g/dl (14.0-18.0); Mean Corpuscular HGB Conc 32.3 g/dl (31.0-36.0); Mean Corpuscular Volume 95.8 fL (80.0-98.0); Platelet Count 121 X10*3/uL (160-400); Red Blood Count 4.81 X10*6/uL (4.60-5.80); White Blood Count 6.2 X10*3/uL (4.8-10.8)
[2021-05-30 07:40] LABS: Anion Gap 12 (12-20); Blood Urea Nitrogen 26 mg/dL (9-16); Calcium 8.3 mg/dL (8.4-10.2); Carbon Dioxide 31 mmol/L (22-29); Chloride 109 mmol/L (96-108); Creatinine Clr Calc Pharmacy 100.3; Estimated Glomerular Filt Rate > 60; Glucose Fasting 98 mg/dL (60-99); Potassium 3.5 mmol/L (3.3-5.1); Sodium 148 mmol/L (135-145)
[2021-05-30] MEDS: 0.9 % Sodium Chloride Flush 3 ML SYRINGE IVFLUSH ×2 (08:13→23:46)
--- NOTE | 2021-05-30 10:01 | HO.PM.IMPN ---
Subjective Subjective Date of Service: 05/30/21 Interval History: cc: ams interval history: still lethargic, not answering questions Review of Systems Review of Systems: Yes Unobtainable due to mental condition Physical Exam Vital Signs: Vital Signs: Last Vital Signs Temp 97.4 F 05/30/21 08:00 Pulse 74 05/30/21 08:00 Resp 20 05/30/21 08:00 BP 100/58 L 05/30/21 08:00 Pulse Ox 93 05/30/21 08:00 Body Mass Index 29.8 General: obtunded, no acute distress Resp: CTA bilateral, no accessory muscles used CVS: S1,S2,RRR GI: soft, non tender, non distended Neuro: moves all 4 limbs, groans and briefly opens eyes to sternal rub Psych: impaired insight Objective Data Active Medications Acetaminophen (Acetaminophen 325 Mg Tablet) 650 mg PO Q6H PRN PRN Reason: Pain, Mild (Pain Scale 1-3) Acyclovir (Acyclovir 200 Mg Capsule) 200 mg PO BID [facility] Last Admin: 05/30/21 09:37 Dose: Not Given Documented by: SUZETTE Non-Admin Reason: NPO Aspirin (Aspirin 81 Mg Tab.Chew) 81 mg PO DAILY [facility] Last Admin: 05/30/21 09:37 Dose: Not Given Documented by: SUZETTE Non-Admin Reason: NPO Gabapentin (Gabapentin 300 Mg Capsule) 300 mg PO TID [facility] Last Admin: 05/30/21 09:37 Dose: Not Given Documented by: SUZETTE Non-Admin Reason: NPO Heparin Sodium (Porcine) (Heparin Sodium,Porcine 5,000 Unit/Ml Vial) 5,000 unit SUBCUT Q8H [facility] Last Admin: 05/30/21 09:37 Dose: 5,000 unit Documented by: SUZETTE Dextrose (D5w) 1,000 mls @ 125 mls/hr IVCONT .Q8H [facility] Last Infusion: 05/30/21 08:16 Dose: 125 mls/hr Documented by: SUZETTE Valproic Acid 375 mg/ Dextrose 53.75 mls @ 52.496 mls/hr IV Q8H [facility] Last Infusion: 05/30/21 08:13 Dose: 0 mls/hr Documented by: SUZETTE Lorazepam (Lorazepam 2 Mg/Ml Vial) 1 mg IVPUSH Q4H PRN PRN Reason: Seizures Melatonin (Melatonin 3 Mg Tablet) 6 mg PO BEDTIME PRN PRN Reason: Insomnia Melatonin (Melatonin 3 Mg Tablet) 6 mg PO BEDTIME [facility] Last Admin: 05/29/21 22:32 Dose: Not Given Documented by: ALYSHA Non-Admin Reason: NPO Olanzapine (Olanzapine 5 Mg Tablet) 5 mg PO BID PRN PRN Reason: aggressive behaviors Olanzapine (Olanzapine 5 Mg Tablet) 5 mg PO DAILY [facility] Last Admin: 05/30/21 09:37 Dose: Not Given Documented by: SUZETTE Non-Admin Reason: NPO Pharmacy Consult (Consult Rx Perform Med Rec) 1 each MISCELLANE ONCE PRN PRN Reason: Consult order Senna/Docusate Sodium (Sennosides/Docusate Sodium Tablet) 1 tab PO DAILY [facility] Last Admin: 05/30/21 09:37 Dose: Not Given Documented by: SUZETTE Non-Admin Reason: NPO Sodium Chloride (0.9 % Sodium Chloride Flush 3 Ml Syringe) 3 ml IVFLUSH QSHIFT [facility] Last Admin: 05/30/21 08:13 Dose: 3 ml Documented by: SUZETTE Tamsulosin HCl (Tamsulosin Hcl 0.4 Mg Capsule) 0.4 mg PO BEDTIME [facility] Last Admin: 05/29/21 22:32 Dose: Not Given Documented by: ALYSHA Non-Admin Reason: NPO Trazodone HCl (Trazodone Hcl 25 Mg Halftab) 25 mg PO BEDTIME PRN PRN Reason: Insomnia Trazodone HCl (Trazodone Hcl 50 Mg Tablet) 50 mg PO BEDTIME [facility] Last Admin: 05/29/21 22:32 Dose: Not Given Documented by: ALYSHA Non-Admin Reason: NPO Labs CBC & Chem 7: 05/30/21 06:28 05/30/21 06:28 Labs: Laboratory Results - last 24 hr 05/29/21 05/30/21 05/30/21 22:58 06:28 06:28 MCV 95.8 MCH 31.0 MCHC 32.3 RDW 14.0 Plt Count 121 L MPV 11.0 Absolute Nucleated RBC 0.000 Nucleated RBC % (auto) 0.0 Anion Gap 12 12 Estim Creat Clear Calc 97.8 100.3 Estimated GFR > 60 > 60 Random Glucose 115 Fasting Glucose 98 Calcium 8.2 L 8.3 L Microbiology Microbiology Results: Microbiology 05/28/21 22:51 Blood Culture - Preliminary Blood - Venous No growth after 24 hours. 05/28/21 22:42 Blood Culture - Preliminary Blood - Venous Prelim: GPC Gram Stain only Assessment and Plan (1) Acute hypernatremia: Status: Acute Assessment and Plan: 75M presented wtih ams metabolic encephalopathy due to hypernatremia continue D5W at 125cc/hr, monitor bmp improved to 148 today epilepsy depakote dysphagia upgraded to pureed with thin liquids dementia with behaviour abnormalitis zyprexa dvt prophylaxis - change to lovenox Quality Stroke Does the patient have a stroke diagnosis?: No VTE Prior VTE?: No VTE Risk Level:: Medical - moderate - high VTE Device Contraindication: Treatment Not Indicated VTE Drug Contraindication: N/A - Med Ordered
[2021-05-30] MEDS: Dextrose 5 % 1,000 ML 125 ML IVCONT ×2 (11:28→19:38)
[2021-05-30] MEDS: Enoxaparin Sodium 40 MG/0.4 ML SYRINGE SUBCUT (11:28)
[2021-05-30] MEDS: OLANZapine 5 MG TABLET PO (18:11)
[2021-05-30] MEDS: traZODone HCL 50 MG TABLET PO (18:20)
[2021-05-30] MEDS: Acyclovir 200 MG CAPSULE PO (18:21)
[2021-05-30] MEDS: Melatonin 3 MG TABLET 6 MG PO (18:23)
[2021-05-30] MEDS: Gabapentin 300 MG CAPSULE PO (18:27)
[2021-05-30] MEDS: Tamsulosin HCL 0.4 MG CAPSULE PO (18:29)
[2021-05-30] MEDS: Acetaminophen 325 MG TABLET 650 MG PO (18:31)
--- NOTE | 2021-05-30 21:19 | PM.PNNEP ---
Subjective Subjective Date of Service: 05/30/21 Interval history: cc: ams interval history: still lethargic, not answering questions Physical Exam Vital Signs: Vital Signs: Last Vital Signs Temp 97.6 F 05/30/21 19:04 Pulse 83 05/30/21 19:04 Resp 20 05/30/21 19:04 BP 116/57 L 05/30/21 19:04 Pulse Ox 96 05/30/21 19:04 Body Mass Index 29.8 General: obtunded, no acute distress Resp:? CTA bilateral, no accessory muscles used CVS: S1,S2,RRR GI: soft, non tender, non distended Neuro: moves all 4 limbs, groans and briefly opens eyes to sternal rub Psych: impaired insight? Objective Data Labs CBC & Chem 7: 05/30/21 06:28 05/30/21 06:28 Labs: Laboratory Results - last 24 hr 05/29/21 05/30/21 05/30/21 22:58 06:28 06:28 WBC 6.2 RBC 4.81 Hgb 14.9 Hct 46.1 MCV 95.8 MCH 31.0 MCHC 32.3 RDW 14.0 Plt Count 121 L MPV 11.0 Absolute Nucleated RBC 0.000 Nucleated RBC % (auto) 0.0 Sodium 148 H 148 H Potassium 3.2 L 3.5 Chloride 111 H 109 H Carbon Dioxide 28 31 H Anion Gap 12 12 BUN 28 H 26 H Creatinine 0.81 0.79 Estim Creat Clear Calc 97.8 100.3 Estimated GFR > 60 > 60 Random Glucose 115 Fasting Glucose 98 Calcium 8.2 L 8.3 L Microbiology Microbiology Results: Microbiology 05/28/21 22:42 Blood - Venous Blood Culture - Preliminary Coag negative Staphylococcus Enterococcus species 05/28/21 22:51 Blood - Venous Blood Culture - Preliminary No growth after 24 hours. Procedures Date of Service Date of Service: 05/30/21 Assessment & Plan Assessment and plan (1) Acute hypernatremia: Status: Acute Assessment and Plan: 1. A 75-year-old male with severe hypernatremia.? The hyponatremia is likely due to free water deficit.? I did an elevated urine osmolality, this is not consistent with diabetes insipidus. 2. Hypokalemia due to decreased p.o. intake.? It is unclear if there are any GI losses. 3. Altered mental status and is worsen by hypernatremia. ? RECOMMENDATION:? Continue D5 water Potassium replacement as needed ? His magnesium level is acceptable.? Repeat potassium level again in the a.m. ? The above plan was discussed with the medical team. Time Spent With Patient Time: Total time spent is greater than 50% in coordination of care (as documented) at patient's floor/unit and/or counseling patient: Progress Note: Quality Stroke Does the patient have a stroke diagnosis?: No
--- NOTE | 2021-05-30 22:28 | PC.NURSE ---
night time meds administered with assistance of ex- visiting,patient refused dinner but took pudding ,jello,thickened apple juice from family,fed by spoon ,aspiration precautions followed
[2021-05-31 03:34] VITALS: BP 101/61; PULSE 58; RESP 14; TEMP 36.5; O2SAT 94
[2021-05-31] MEDS: Dextrose 5 % 1,000 ML 125 ML IVCONT (03:36)
[2021-05-31 06:52] VITALS: BP 150/74; PULSE 82; RESP 20; TEMP 36; O2SAT 96
[2021-05-31 07:00] LABS: PLT CLUMP 1; Red Cell Distribution Width 13.7 % (11.0-16.0)
[2021-05-31 07:01] LABS: Hematocrit 42.3 % (42.0-52.0); Hemoglobin 14.1 g/dl (14.0-18.0); Mean Corpuscular HGB Conc 33.3 g/dl (31.0-36.0); Mean Corpuscular Hemoglobin 31.1 pg (27.0-33.0); Mean Corpuscular Volume 93.4 fL (80.0-98.0); Mean Platelet Volume 10.6 fL (9.4-12.4); Red Blood Count 4.53 X10*6/uL (4.60-5.80); White Blood Count 4.7 X10*3/uL (4.8-10.8)
[2021-05-31 07:04] LABS: Platelet Count 118 X10*3/uL (160-400)
[2021-05-31 07:24] LABS: Anion Gap 11 (12-20); Blood Urea Nitrogen 16 mg/dL (9-16); Calcium 8.2 mg/dL (8.4-10.2); Carbon Dioxide 29 mmol/L (22-29); Chloride 103 mmol/L (96-108); Creatinine Clr Calc Pharmacy 108.5; Estimated Glomerular Filt Rate > 60; Glucose Fasting 98 mg/dL (60-99); Potassium 3.3 mmol/L (3.3-5.1); Sodium 140 mmol/L (135-145)
--- NOTE | 2021-05-31 09:00 | MHC.SL.DTX ---
Dysphagia Diet modifications: Last documented Solid diet consistencies: Pureed (NDD1) Last documented Liquid consistency: Thin Last documented Medication Administration: crushed in puree Changes made to current diet?: No:: Continue with NDD1 PUREED solids and THIN liquids via TSP ONLY Liquid Consistency and Strategies: Liquid Intake Recommendation: Thin Compensatory Strategies for Safe Swallow: Liquids by Teaspoon Only Compensatory Strategies for Safe Swallow(b): Sitting Upright (90 deg) No Straw Liquids from Spoon Small Bites and Sips Alternate Liquids/Solids Solid Food Consistency: Dietary Recommendations: Pureed (NDD1) Additional Modifications to Solids: Oral Medication Intake: Crushed with Puree Strategies and Precautions to be Taken for Safe Swallow: Sitting Upright (90 deg) No Straw Liquids from Spoon Small Bites and Sips Alternate Liquids/Solids Supervision While Eating and/Drinking: Total Assistance Swallowing Recommended Treatments: Compens. Strategy Educat. Level of Impact on: Daily activities: Severe Community: Severe Prognosis for Improvement: Fair Treatment: Pt was seen for dysphagia treatment with his ex-, Lawanda, present. Lawanda reported that pt was too lethargic to consume dinner 05/30. She also noted that pt has been receiving thickened liquids despite BIOINFORMATICS ENGINEER's recommendation for THIN liquids and NDD1 PUREED solids when evaluated 05/29. Updated with RN who reported that this was an error; current diet order correctly reads as NDD1 PUREED solids with THIN liquids. Lawanda reported that pt has been dependent for PO intake though had been safely tolerating a regular consistency diet with thin liquids. Pt was repositioned upright in bed though remained sleepy throughout the session, requiring consistent verbal cues to maintain alertness. Pt was noted to keep his eyes closed throughout the session though was responsive. Pt noted to open his oral cavity and gesture with his hands to indicate wanting more to drink. Pt unable to tolerate liquids via cup this date as he was unable to form a labial seal around the cup. Pt tolerated thin liquids via tsp with a WFL labial seal, mildly delayed pharyngeal swallow trigger, and no overt s/s aspiration. Pt accepted minimal amounts of pureed solids via 1/2 tsp before becoming too lethargic to continue with safe PO trials. Reviewed safe and compensatory swallowing strategies with Lawanda, including alternation of liquids and solids, liquids via TSP ONLY, oral cavity checks, and withholding PO if pt is too lethargic. Updated with RN re: continued recommendation for NDD1 PUREED solids with THIN liquids via TSP ONLY. Pt continues to require strict aspiration precautions and 1:1 assistance with all PO intake. BIOINFORMATICS ENGINEER will continue to follow pt. Supervisor Model Making Clinican/Clinical Fellow: No Supervisory Statement: I have reviewed and agree with the student/clinical fellow's documentation: N/A Speech Language Pathologist: Kim Monroe M.A., CCC-BIOINFORMATICS ENGINEER
[2021-05-31] MEDS: Dextrose 5 % and 0.45 % NaCl 1,000 ML 80 ML IVCONT ×2 (09:39→21:55)
[2021-05-31] MEDS: 0.9 % Sodium Chloride Flush 3 ML SYRINGE IVFLUSH ×3 (09:39→19:47)
[2021-05-31] MEDS: Potassium Chloride ER 20 MEQ TAB.ER.PRT 40 MEQ PO (09:46)
[2021-05-31] MEDS: Aspirin 81 MG TAB.CHEW PO (09:52)
[2021-05-31] MEDS: OLANZapine 5 MG TABLET PO (09:52)
[2021-05-31] MEDS: Acyclovir 200 MG CAPSULE PO ×2 (09:52→19:41)
[2021-05-31] MEDS: Sennosides/Docusate Sodium TABLET 1 TAB PO (09:52)
[2021-05-31] MEDS: Gabapentin 300 MG CAPSULE PO ×3 (09:52→19:41)
[2021-05-31] MEDS: Enoxaparin Sodium 40 MG/0.4 ML SYRINGE SUBCUT (10:31)
[2021-05-31 11:00] VITALS: BP 152/6; PULSE 84; RESP 20; TEMP 36.1; O2SAT 95
--- NOTE | 2021-05-31 11:06 | HO.PM.IMPN ---
Subjective Subjective Date of Service: 05/31/21 Interval History: cc: ams interval history: more alert, not answering questions Review of Systems Review of Systems: Yes Unobtainable due to mental condition Physical Exam Vital Signs: Vital Signs: Last Vital Signs Temp 97 F 05/31/21 11:00 Pulse 84 05/31/21 11:00 Resp 20 05/31/21 11:00 BP 152/6 H 05/31/21 11:00 Pulse Ox 95 05/31/21 11:00 Body Mass Index 29.8 General: alert, nonsensical babbling Resp:? CTA bilateral, no accessory muscles used CVS: S1,S2,RRR GI: soft, non tender, non distended Neuro: moves all 4 limbs, Psych: impaired insight? Objective Data Active Medications Acetaminophen (Acetaminophen 325 Mg Tablet) 650 mg PO Q6H PRN PRN Reason: Pain, Mild (Pain Scale 1-3) Last Admin: 05/30/21 18:31 Dose: 650 mg Documented by: PEDRO Acyclovir (Acyclovir 200 Mg Capsule) 200 mg PO BID [facility] Last Admin: 05/31/21 09:52 Dose: 200 mg Documented by: SKYE Aspirin (Aspirin 81 Mg Tab.Chew) 81 mg PO DAILY [facility] Last Admin: 05/31/21 09:52 Dose: 81 mg Documented by: SKYE Enoxaparin Sodium (Enoxaparin Sodium 40 Mg/0.4 Ml Syringe) 40 mg SUBCUT Q24H [facility] Last Admin: 05/31/21 10:31 Dose: 40 mg Documented by: SKYE Gabapentin (Gabapentin 300 Mg Capsule) 300 mg PO TID [facility] Last Admin: 05/31/21 09:52 Dose: 300 mg Documented by: SKYE Valproic Acid 375 mg/ Dextrose 53.75 mls @ 52.496 mls/hr IV Q8H [facility] Last Infusion: 05/31/21 08:48 Dose: 0 mls/hr Documented by: SKYE Dextrose/Sodium Chloride (D51/2ns) 1,000 mls @ 80 mls/hr IVCONT .[id number] [facility] Last Admin: 05/31/21 09:39 Dose: 80 mls/hr Documented by: SKYE Lorazepam (Lorazepam 2 Mg/Ml Vial) 1 mg IVPUSH Q4H PRN PRN Reason: Seizures Melatonin (Melatonin 3 Mg Tablet) 6 mg PO BEDTIME PRN PRN Reason: Insomnia Melatonin (Melatonin 3 Mg Tablet) 6 mg PO BEDTIME [facility] Last Admin: 05/30/21 18:23 Dose: 6 mg Documented by: PEDRO Olanzapine (Olanzapine 5 Mg Tablet) 5 mg PO BID PRN PRN Reason: aggressive behaviors Last Admin: 05/30/21 18:11 Dose: 5 mg Documented by: PEDRO Olanzapine (Olanzapine 5 Mg Tablet) 5 mg PO DAILY [facility] Last Admin: 05/31/21 09:52 Dose: 5 mg Documented by: SKYE Pharmacy Consult (Consult Rx Perform Med Rec) 1 each MISCELLANE ONCE PRN PRN Reason: Consult order Senna/Docusate Sodium (Sennosides/Docusate Sodium Tablet) 1 tab PO DAILY [facility] Last Admin: 05/31/21 09:52 Dose: 1 tab Documented by: SKYE Sodium Chloride (0.9 % Sodium Chloride Flush 3 Ml Syringe) 3 ml IVFLUSH QSHIFT [facility] Last Admin: 05/31/21 09:39 Dose: 3 ml Documented by: SKYE Tamsulosin HCl (Tamsulosin Hcl 0.4 Mg Capsule) 0.4 mg PO BEDTIME [facility] Last Admin: 05/30/21 18:29 Dose: 0.4 mg Documented by: PEDRO Trazodone HCl (Trazodone Hcl 25 Mg Halftab) 25 mg PO BEDTIME PRN PRN Reason: Insomnia Trazodone HCl (Trazodone Hcl 50 Mg Tablet) 50 mg PO BEDTIME [facility] Last Admin: 05/30/21 18:20 Dose: 50 mg Documented by: PEDRO Labs CBC & Chem 7: 05/31/21 06:01 05/31/21 06:01 Labs: Laboratory Results - last 24 hr 05/31/21 05/31/21 06:01 06:01 MCV 93.4 MCH 31.1 MCHC 33.3 RDW 13.7 Plt Count 118 L MPV 10.6 Absolute Nucleated RBC 0.000 Nucleated RBC % (auto) 0.0 Anion Gap 11 L Estim Creat Clear Calc 108.5 Estimated GFR > 60 Fasting Glucose 98 Calcium 8.2 L Microbiology Microbiology Results: Microbiology 05/28/21 22:42 Blood Culture - Final Blood - Venous Coag negative Staphylococcus Enterococcus faecalis 05/28/21 22:51 Blood Culture - Preliminary Blood - Venous No growth after 48 hours. Assessment and Plan (1) Acute hypernatremia: Status: Acute Assessment and Plan: 75M presented wtih ams metabolic encephalopathy due to hypernatremia improved to 140today change to maintance d51/2ns monitor bmp now alert, back to baseline e faecalis bacteremia unclear source, no sepsis ampicillin, repeat cultures, id eval epilepsy depakote dysphagia upgraded to pureed with thin liquids dementia with behaviour abnormalitis zyprexa dvt prophylaxis - change to lovenox Quality Stroke Does the patient have a stroke diagnosis?: No VTE Prior VTE?: No VTE Risk Level:: Medical - moderate - high VTE Device Contraindication: Treatment Not Indicated VTE Drug Contraindication: N/A - Med Ordered
[2021-05-31 11:13] VITALS: BMI 29.8
[2021-05-31] MEDS: Ampicillin Sodium 2 GM in 0.9 % Sodium Chloride 100 ML IV (12:10)
[2021-05-31 15:36] VITALS: BP 156/72; PULSE 80; RESP 18; TEMP 36.6; O2SAT 92
[2021-05-31 19:35] VITALS: BP 120/52; PULSE 82; RESP 15; TEMP 37.2; O2SAT 97
[2021-05-31] MEDS: Tamsulosin HCL 0.4 MG CAPSULE PO (19:41)
[2021-05-31] MEDS: traZODone HCL 50 MG TABLET PO (19:41)
[2021-05-31] MEDS: Melatonin 3 MG TABLET 6 MG PO (19:41)
--- NOTE | 2021-05-31 23:02 | P.CNID_ITS ---
History of Present Illness Data of Consult Service Date: 05/31/21 Requesting physician: Ganesh Tolbert Primary Care Provider: Jocelin Randall MD HPI Reason for consult: bacteremia He presents from jail for low sodium He has no fever or chills He is seeing Renal He had blood culture drawn on admission 2 is enterococcus faecalis and staph epi Review of Systems Review of Systems: Yes Unobtainable due to mental status PMFSH Past Medical History Medical History (Updated 05/31/21 @ 23:05 by Shelia Smallwood MD) Enterococcal bacteremia Family History Family history: reviewed and not pertinent Social History Social History Household Members: Other Housing: Care Home Do you presently have visiting nurse or other home services: No Unable to assess alcohol history related to: Unable to respond Patient Tobacco Use Status: Tobacco use Unknown Use of substances other than those prescribed or required for medical reasons: Unable to respond Currently Displaying Signs/Symptoms of Drug Intoxication Withdrawal: No Any prior treatment program specific to substance use: No Advance Directives: No Do you have thoughts of harming others: None Do you have a plan to hurt others: No Plan Recently lost weight without trying: Unsure Nutrition Risks: On aspiration precautions Poor oral hygiene: No service: No Current occupational status: retired Meds Allergies Allergy/AdvReac Type Severity Reaction Status Date / Time No Known Allergies Allergy Verified 05/28/21 23:00 [No Known Allergies*] Active Medications: Current Medications Acetaminophen (Acetaminophen 325 Mg Tablet) 650 mg PO Q6H PRN PRN Reason: Pain, Mild (Pain Scale 1-3) Last Admin: 05/30/21 18:31 Dose: 650 mg Documented by: Acyclovir (Acyclovir 200 Mg Capsule) 200 mg PO BID [facility] Last Admin: 05/31/21 19:41 Dose: 200 mg Documented by: Aspirin (Aspirin 81 Mg Tab.Chew) 81 mg PO DAILY [facility] Last Admin: 05/31/21 09:52 Dose: 81 mg Documented by: Enoxaparin Sodium (Enoxaparin Sodium 40 Mg/0.4 Ml Syringe) 40 mg SUBCUT Q24H [facility] Last Admin: 05/31/21 10:31 Dose: 40 mg Documented by: Gabapentin (Gabapentin 300 Mg Capsule) 300 mg PO TID [facility] Last Admin: 05/31/21 19:41 Dose: 300 mg Documented by: Valproic Acid 375 mg/ Dextrose 53.75 mls @ 52.496 mls/hr IV Q8H [facility] Last Admin: 05/31/21 21:57 Dose: 52.5 mls/hr Documented by: Dextrose/Sodium Chloride (D51/2ns) 1,000 mls @ 80 mls/hr IVCONT .[id number] [facility] Last Admin: 05/31/21 21:55 Dose: 80 mls/hr Documented by: Lorazepam (Lorazepam 2 Mg/Ml Vial) 1 mg IVPUSH Q4H PRN PRN Reason: Seizures Melatonin (Melatonin 3 Mg Tablet) 6 mg PO BEDTIME PRN PRN Reason: Insomnia Melatonin (Melatonin 3 Mg Tablet) 6 mg PO BEDTIME [facility] Last Admin: 05/31/21 19:41 Dose: 6 mg Documented by: Olanzapine (Olanzapine 5 Mg Tablet) 5 mg PO BID PRN PRN Reason: aggressive behaviors Last Admin: 05/30/21 18:11 Dose: 5 mg Documented by: Olanzapine (Olanzapine 5 Mg Tablet) 5 mg PO DAILY [facility] Last Admin: 05/31/21 09:52 Dose: 5 mg Documented by: Pharmacy Consult (Consult Rx Perform Med Rec) 1 each MISCELLANE ONCE PRN PRN Reason: Consult order Senna/Docusate Sodium (Sennosides/Docusate Sodium Tablet) 1 tab PO DAILY [facility] Last Admin: 05/31/21 09:52 Dose: 1 tab Documented by: Sodium Chloride (0.9 % Sodium Chloride Flush 3 Ml Syringe) 3 ml IVFLUSH QSHIFT [facility] Last Admin: 05/31/21 19:47 Dose: 3 ml Documented by: Tamsulosin HCl (Tamsulosin Hcl 0.4 Mg Capsule) 0.4 mg PO BEDTIME [facility] Last Admin: 05/31/21 19:41 Dose: 0.4 mg Documented by: Trazodone HCl (Trazodone Hcl 25 Mg Halftab) 25 mg PO BEDTIME PRN PRN Reason: Insomnia Trazodone HCl (Trazodone Hcl 50 Mg Tablet) 50 mg PO BEDTIME [facility] Last Admin: 05/31/21 19:41 Dose: 50 mg Documented by: Home Medications Medication Instructions Recorded Confirmed Last Taken Type acyclovir 200 mg capsule 200 mg PO BID 05/28/21 05/28/21 Unknown History aspirin 81 mg chewable tablet 81 mg PO DAILY 05/28/21 05/28/21 05/27/21 History divalproex 125 mg capsule,delayed 375 mg PO TID 05/28/21 05/28/21 05/27/21 History release sprinkle gabapentin 300 mg capsule 300 mg PO TID 05/28/21 05/28/21 05/28/21 History melatonin 3 mg tablet 6 mg PO BEDTIME 05/28/21 05/28/21 05/27/21 History olanzapine 5 mg disintegrating 5 mg PO BID PRN 05/28/21 05/28/21 Unknown History tablet olanzapine 5 mg disintegrating 5 mg PO DAILY 05/28/21 05/28/21 05/28/21 History tablet sennosides 8.6 mg-docusate sodium 1 tab PO DAILY 05/28/21 05/28/21 05/28/21 History 50 mg tablet (Senna-S) tamsulosin 0.4 mg capsule 0.4 mg PO BEDTIME 05/28/21 05/28/21 05/27/21 History trazodone 50 mg tablet 25 mg PO BEDTIME PRN 05/28/21 05/28/21 Unknown History trazodone 50 mg tablet 50 mg PO BEDTIME 05/28/21 05/28/21 05/27/21 History Physical Exam Vital Signs: Vital Signs: Last Vital Signs Temp 99 F 05/31/21 19:35 Pulse 82 05/31/21 19:35 Resp 15 05/31/21 19:35 BP 120/52 L 05/31/21 19:35 Pulse Ox 97 05/31/21 19:35 Body Mass Index 29.8 Const: General: cooperative Eyes: General: appearance normal, both eyes and all related structures Pupils: Equal, round and reactive pupils present Resp: Effort & Inspection: normal respiratory effort Cardio: Rate: regular rate Rhythm: regular rhythm GI: Palpation (GI): Soft to palpation and nontender Skin: General skin exam: no rashes or lesions noted Neuro: Cranial nerves: Yes Equal, round and reactive pupils present Extrem: General: Yes normal to inspection Results Labs CBC & Chem 7: 05/31/21 06:01 05/31/21 06:01 Labs: Short CBC 05/31/21 Range/Units 06:01 WBC 4.7 L (4.8-10.8) X10*3/uL Hgb 14.1 (14.0-18.0) g/dl Hct 42.3 (42.0-52.0) % Plt Count 118 L (160-400) X10*3/uL BMP 05/31/21 06:01 Sodium 140 Potassium 3.3 Chloride 103 Carbon Dioxide 29 BUN 16 Creatinine 0.73 Calcium 8.2 L Microbiology Microbiology Results: Microbiology 05/28/21 22:42 Blood - Venous Blood Culture - Final Coag negative Staphylococcus Enterococcus faecalis 05/28/21 22:51 Blood - Venous Blood Culture - Preliminary No growth after 48 hours. Assessment and Plan (1) Dementia: Status: Acute (2) Enterococcal bacteremia: Status: Acute He has 1/2 enterococcus but it is with staph epi which is contaminant Likely both contaminant as no fever or chills or abdominal pain or abnormal urine or leukocytosis Hold antibiotics for now If repeat bacteremia would give IV Ampicillin and get CT abdomen and pelvis evaluate
[2021-05-31 23:41] VITALS: BP 102/68; PULSE 66; RESP 18; TEMP 36.6; O2SAT 98
[2021-06-01 04:00] VITALS: BP 104/56; PULSE 69; RESP 18; TEMP 36.8; O2SAT 95
[2021-06-01 06:21] LABS: Hematocrit 43.9 % (42.0-52.0); Hemoglobin 14.1 g/dl (14.0-18.0); Mean Corpuscular HGB Conc 32.1 g/dl (31.0-36.0); Mean Corpuscular Hemoglobin 30.3 pg (27.0-33.0); Mean Corpuscular Volume 94.2 fL (80.0-98.0); Mean Platelet Volume 10.3 fL (9.4-12.4); Platelet Count 144 X10*3/uL (160-400); Red Blood Count 4.66 X10*6/uL (4.60-5.80); Red Cell Distribution Width 13.8 % (11.0-16.0); White Blood Count 4.8 X10*3/uL (4.8-10.8)
[2021-06-01 06:40] LABS: Anion Gap 10 (12-20); Blood Urea Nitrogen 9 mg/dL (9-16); Calcium 8.2 mg/dL (8.4-10.2); Carbon Dioxide 30 mmol/L (22-29); Chloride 109 mmol/L (96-108); Creatinine Clr Calc Pharmacy 111.6; Estimated Glomerular Filt Rate > 60; Glucose Fasting 113 mg/dL (60-99); Potassium 3.8 mmol/L (3.3-5.1); Sodium 145 mmol/L (135-145)
[2021-06-01 08:00] VITALS: PULSE 70; RESP 20; TEMP 36.2; O2SAT 99
[2021-06-01] MEDS: Sennosides/Docusate Sodium TABLET 1 TAB PO (08:35)
[2021-06-01] MEDS: Aspirin 81 MG TAB.CHEW PO (08:35)
[2021-06-01] MEDS: OLANZapine 5 MG TABLET PO (08:36)
[2021-06-01] MEDS: Acyclovir 200 MG CAPSULE PO ×2 (08:37→22:15)
[2021-06-01] MEDS: Gabapentin 300 MG CAPSULE PO ×3 (08:38→22:15)
--- NOTE | 2021-06-01 10:17 | HO.PM.IMPN ---
Subjective Subjective Date of Service: 06/01/21 Interval History: cc: ams interval history: more alert, answering simple questions, following simple commands Cardiovascular Cardiovascular: Reports no additional cardiovascular complaints Respiratory Respiratory: Reports no additional respiratory complaints Physical Exam Vital Signs: Vital Signs: Last Vital Signs Temp 97.2 F 06/01/21 08:00 Pulse 70 06/01/21 08:00 Resp 20 06/01/21 08:00 BP 104/56 L 06/01/21 04:00 Pulse Ox 99 06/01/21 08:00 Body Mass Index 29.8 General: alert, answering simple question Resp:? CTA bilateral, no accessory muscles used CVS: S1,S2,RRR GI: soft, non tender, non distended Neuro: moves all 4 limbs, Psych: impaired insight? Objective Data Active Medications Acetaminophen (Acetaminophen 325 Mg Tablet) 650 mg PO Q6H PRN PRN Reason: Pain, Mild (Pain Scale 1-3) Last Admin: 05/30/21 18:31 Dose: 650 mg Documented by: PEDRO Acyclovir (Acyclovir 200 Mg Capsule) 200 mg PO BID [facility] Last Admin: 06/01/21 08:37 Dose: 200 mg Documented by: MOON Aspirin (Aspirin 81 Mg Tab.Chew) 81 mg PO DAILY [facility] Last Admin: 06/01/21 08:35 Dose: 81 mg Documented by: MOON Enoxaparin Sodium (Enoxaparin Sodium 40 Mg/0.4 Ml Syringe) 40 mg SUBCUT Q24H [facility] Last Admin: 05/31/21 10:31 Dose: 40 mg Documented by: SKYE Gabapentin (Gabapentin 300 Mg Capsule) 300 mg PO TID [facility] Last Admin: 06/01/21 08:38 Dose: 300 mg Documented by: MOON Valproic Acid 375 mg/ Dextrose 53.75 mls @ 52.496 mls/hr IV Q8H [facility] Last Infusion: 06/01/21 07:52 Dose: 0 mls/hr Documented by: MOON Dextrose/Sodium Chloride (D51/2ns) 1,000 mls @ 100 mls/hr IVCONT .Q10H [facility] Last Admin: 06/01/21 08:44 Dose: Not Given Documented by: MOON Non-Admin Reason: IV Running Lorazepam (Lorazepam 2 Mg/Ml Vial) 1 mg IVPUSH Q4H PRN PRN Reason: Seizures Melatonin (Melatonin 3 Mg Tablet) 6 mg PO BEDTIME PRN PRN Reason: Insomnia Melatonin (Melatonin 3 Mg Tablet) 6 mg PO BEDTIME [facility] Last Admin: 05/31/21 19:41 Dose: 6 mg Documented by: CHEKO Olanzapine (Olanzapine 5 Mg Tablet) 5 mg PO BID PRN PRN Reason: aggressive behaviors Last Admin: 05/30/21 18:11 Dose: 5 mg Documented by: PEDRO Olanzapine (Olanzapine 5 Mg Tablet) 5 mg PO DAILY [facility] Last Admin: 06/01/21 08:36 Dose: 5 mg Documented by: MOON Pharmacy Consult (Consult Rx Perform Med Rec) 1 each MISCELLANE ONCE PRN PRN Reason: Consult order Senna/Docusate Sodium (Sennosides/Docusate Sodium Tablet) 1 tab PO DAILY [facility] Last Admin: 06/01/21 08:35 Dose: 1 tab Documented by: MOON Sodium Chloride (0.9 % Sodium Chloride Flush 3 Ml Syringe) 3 ml IVFLUSH QSHIFT [facility] Last Admin: 06/01/21 08:44 Dose: Not Given Documented by: MOON Non-Admin Reason: IV Running Tamsulosin HCl (Tamsulosin Hcl 0.4 Mg Capsule) 0.4 mg PO BEDTIME [facility] Last Admin: 05/31/21 19:41 Dose: 0.4 mg Documented by: CHEKO Trazodone HCl (Trazodone Hcl 25 Mg Halftab) 25 mg PO BEDTIME PRN PRN Reason: Insomnia Trazodone HCl (Trazodone Hcl 50 Mg Tablet) 50 mg PO BEDTIME [facility] Last Admin: 05/31/21 19:41 Dose: 50 mg Documented by: CHEKO Labs CBC & Chem 7: 06/01/21 06:08 06/01/21 06:08 Labs: Laboratory Results - last 24 hr 06/01/21 06/01/21 06:08 06:08 MCV 94.2 MCH 30.3 MCHC 32.1 RDW 13.8 Plt Count 144 L MPV 10.3 Absolute Nucleated RBC 0.000 Nucleated RBC % (auto) 0.0 Anion Gap 10 L Estim Creat Clear Calc 111.6 Estimated GFR > 60 Fasting Glucose 113 H Calcium 8.2 L Microbiology Microbiology Results: Microbiology 05/28/21 22:42 Blood Culture - Final Blood - Venous Coag negative Staphylococcus Enterococcus faecalis Assessment and Plan (1) Acute hypernatremia: Status: Acute Assessment and Plan: 75M presented wtih ams metabolic encephalopathy due to hypernatremia now 145 change to maintance d51/2ns, will increase to 100cc/hr monitor bmp now alert, close to baseline e faecalis bacteremia unclear source, no sepsis ID appreciated, likely contaminant, will hold off on abx, follow up repeat, if positive, will do ampicillin, and image abdomen epilepsy depakote dysphagia upgraded to pureed with thin liquids dementia with behaviour abnormalitis zyprexa dvt prophylaxis - change to lovenox Quality Stroke Does the patient have a stroke diagnosis?: No VTE Prior VTE?: No VTE Risk Level:: Medical - moderate - high VTE Device Contraindication: Treatment Not Indicated VTE Drug Contraindication: N/A - Med Ordered
[2021-06-01] MEDS: Enoxaparin Sodium 40 MG/0.4 ML SYRINGE SUBCUT (11:41)
[2021-06-01 12:00] VITALS: BP 110/58; PULSE 72; RESP 20; TEMP 36.4; O2SAT 93
[2021-06-01] MEDS: Dextrose 5 % and 0.45 % NaCl 1,000 ML 80 ML IVCONT (12:01)
[2021-06-01 15:31] VITALS: BP 115/60; PULSE 110; RESP 18; TEMP 36.1; O2SAT 94
[2021-06-01] MEDS: 0.9 % Sodium Chloride Flush 3 ML SYRINGE IVFLUSH ×2 (16:37→23:55)
[2021-06-01 19:48] VITALS: RESP 18; TEMP 36.9
[2021-06-01] MEDS: Melatonin 3 MG TABLET 6 MG PO (22:15)
[2021-06-01] MEDS: traZODone HCL 50 MG TABLET PO (22:16)
[2021-06-01 23:24] VITALS: BP 129/103; PULSE 96; RESP 18; TEMP 36.6; O2SAT 96
[2021-06-02] MEDS: Dextrose 5 % and 0.45 % NaCl 1,000 ML 80 ML IVCONT (02:47)
[2021-06-02 03:49] VITALS: PULSE 89; RESP 18; TEMP 36.6; O2SAT 96
[2021-06-02 06:59] LABS: Hematocrit 44.1 % (42.0-52.0); Hemoglobin 14.6 g/dl (14.0-18.0); Mean Corpuscular HGB Conc 33.1 g/dl (31.0-36.0); Mean Corpuscular Hemoglobin 30.9 pg (27.0-33.0); Mean Corpuscular Volume 93.4 fL (80.0-98.0); Mean Platelet Volume 10.1 fL (9.4-12.4); Platelet Count 148 X10*3/uL (160-400); Red Blood Count 4.72 X10*6/uL (4.60-5.80); Red Cell Distribution Width 13.6 % (11.0-16.0); White Blood Count 6.2 X10*3/uL (4.8-10.8)
[2021-06-02 07:33] LABS: Anion Gap 15 (12-20); Blood Urea Nitrogen 9 mg/dL (9-16); Calcium 8.2 mg/dL (8.4-10.2); Carbon Dioxide 22 mmol/L (22-29); Chloride 109 mmol/L (96-108); Creatinine Clr Calc Pharmacy 125.8; Estimated Glomerular Filt Rate > 60; Glucose Fasting 118 mg/dL (60-99); Potassium 3.9 mmol/L (3.3-5.1); Sodium 142 mmol/L (135-145)
[2021-06-02 08:00] VITALS: BP 149/64; PULSE 81; RESP 18; TEMP 36.2; O2SAT 95
--- NOTE | 2021-06-02 09:24 | P.PNIM_ITS ---
Subjective Subjective Date of Service: 06/02/21 Interval History: cc: ams interval history: not answering my questions today Review of Systems Review of Systems: Yes Unobtainable due to mental condition Physical Exam Vital Signs: Vital Signs: Last Vital Signs Temp 97.1 F 06/02/21 08:00 Pulse 81 06/02/21 08:00 Resp 18 06/02/21 08:00 BP 149/64 H 06/02/21 08:00 Pulse Ox 95 06/02/21 08:00 Body Mass Index 29.8 General: lethargic, not answering questions today Resp:? CTA bilateral, no accessory muscles used CVS: S1,S2,RRR GI: soft, non tender, non distended Neuro: moves all 4 limbs, Psych: impaired insight? Objective Data Active Medications Acetaminophen (Acetaminophen 325 Mg Tablet) 650 mg PO Q6H PRN PRN Reason: Pain, Mild (Pain Scale 1-3) Last Admin: 05/30/21 18:31 Dose: 650 mg Documented by: PEDRO Acyclovir (Acyclovir 200 Mg Capsule) 200 mg PO BID [facility] Last Admin: 06/01/21 22:15 Dose: 200 mg Documented by: NATALIA Aspirin (Aspirin 81 Mg Tab.Chew) 81 mg PO DAILY [facility] Last Admin: 06/01/21 08:35 Dose: 81 mg Documented by: MOON Enoxaparin Sodium (Enoxaparin Sodium 40 Mg/0.4 Ml Syringe) 40 mg SUBCUT Q24H [facility] Last Admin: 06/01/21 11:41 Dose: 40 mg Documented by: MOON Gabapentin (Gabapentin 300 Mg Capsule) 300 mg PO TID [facility] Last Admin: 06/01/21 22:15 Dose: 300 mg Documented by: NATALIA Valproic Acid 375 mg/ Dextrose 53.75 mls @ 52.496 mls/hr IV Q8H [facility] Last Infusion: 06/02/21 07:02 Dose: 0 mls/hr Documented by: NATALIA Dextrose/Sodium Chloride (D51/2ns) 1,000 mls @ 100 mls/hr IVCONT .Q10H [facility] Last Admin: 06/02/21 02:47 Dose: 80 mls/hr Documented by: NATALIA Lorazepam (Lorazepam 2 Mg/Ml Vial) 1 mg IVPUSH Q4H PRN PRN Reason: Seizures Melatonin (Melatonin 3 Mg Tablet) 6 mg PO BEDTIME PRN PRN Reason: Insomnia Melatonin (Melatonin 3 Mg Tablet) 6 mg PO BEDTIME [facility] Last Admin: 06/01/21 22:15 Dose: 6 mg Documented by: NATALIA Olanzapine (Olanzapine 5 Mg Tablet) 5 mg PO BID PRN PRN Reason: aggressive behaviors Last Admin: 05/30/21 18:11 Dose: 5 mg Documented by: PEDRO Olanzapine (Olanzapine 5 Mg Tablet) 5 mg PO DAILY [facility] Last Admin: 06/01/21 08:36 Dose: 5 mg Documented by: MOON Pharmacy Consult (Consult Rx Perform Med Rec) 1 each MISCELLANE ONCE PRN PRN Reason: Consult order Senna/Docusate Sodium (Sennosides/Docusate Sodium Tablet) 1 tab PO DAILY [facility] Last Admin: 06/01/21 08:35 Dose: 1 tab Documented by: MOON Sodium Chloride (0.9 % Sodium Chloride Flush 3 Ml Syringe) 3 ml IVFLUSH QSHIFT [facility] Last Admin: 06/01/21 23:55 Dose: 3 ml Documented by: NATALIA Tamsulosin HCl (Tamsulosin Hcl 0.4 Mg Capsule) 0.4 mg PO BEDTIME [facility] Last Admin: 06/01/21 22:16 Dose: Not Given Documented by: NATALIA Non-Admin Reason: unable to crush Trazodone HCl (Trazodone Hcl 25 Mg Halftab) 25 mg PO BEDTIME PRN PRN Reason: Insomnia Trazodone HCl (Trazodone Hcl 50 Mg Tablet) 50 mg PO BEDTIME [facility] Last Admin: 06/01/21 22:16 Dose: 50 mg Documented by: NATALIA Labs CBC & Chem 7: 06/02/21 06:41 06/02/21 06:41 Labs: Laboratory Results - last 24 hr 06/02/21 06/02/21 06:41 06:41 MCV 93.4 MCH 30.9 MCHC 33.1 RDW 13.6 Plt Count 148 L MPV 10.1 Absolute Nucleated RBC 0.000 Nucleated RBC % (auto) 0.0 Anion Gap 15 Estim Creat Clear Calc 125.8 Estimated GFR > 60 Fasting Glucose 118 H Calcium 8.2 L Microbiology Microbiology Results: Microbiology 06/01/21 06:07 Blood Culture - Preliminary Blood - Venous No growth after 24 hours. 06/01/21 06:08 Blood Culture - Preliminary Blood - Venous No growth after 24 hours. Assessment and Plan (1) Acute hypernatremia: Status: Acute Assessment and Plan: 75M presented wtih ams metabolic encephalopathy due to hypernatremia now 142 continue maintance d51/2ns monitor bmp was alert yesterday, now lethargic, but likely just still sleepy from overnight, will recheck later today e faecalis bacteremia unclear source, no sepsis ID appreciated, likely contaminant, will hold off on abx, follow up repeat, if positive, will do ampicillin, and image abdomen epilepsy depakote dysphagia upgraded to pureed with thin liquids dementia with behaviour abnormalitis zyprexa dvt prophylaxis - changed to lovenox Quality Stroke Does the patient have a stroke diagnosis?: No VTE Prior VTE?: No VTE Risk Level:: Medical - moderate - high VTE Device Contraindication: Treatment Not Indicated VTE Drug Contraindication: N/A - Med Ordered
[2021-06-02] MEDS: 0.9 % Sodium Chloride Flush 3 ML SYRINGE IVFLUSH ×3 (09:56→22:52)
[2021-06-02] MEDS: OLANZapine 5 MG TABLET PO (09:57)
[2021-06-02] MEDS: Aspirin 81 MG TAB.CHEW PO (09:57)
[2021-06-02] MEDS: Sennosides/Docusate Sodium TABLET 1 TAB PO (09:57)
[2021-06-02] MEDS: Gabapentin 300 MG CAPSULE PO ×2 (09:57→16:50)
[2021-06-02] MEDS: Acyclovir 200 MG CAPSULE PO (09:57)
[2021-06-02] MEDS: Enoxaparin Sodium 40 MG/0.4 ML SYRINGE SUBCUT (09:59)
[2021-06-02 12:00] VITALS: BP 137/80; PULSE 67; RESP 18; TEMP 36.3; O2SAT 97
[2021-06-02 15:31] VITALS: BP 132/69; PULSE 70; RESP 20; TEMP 36.7; O2SAT 99
[2021-06-02] MEDS: Dextrose 5 % and 0.45 % NaCl 1,000 ML 100 ML IVCONT (15:58)
[2021-06-02 19:12] VITALS: BP 119/61; PULSE 80; RESP 20; TEMP 36.2; O2SAT 99
[2021-06-02 23:12] VITALS: PULSE 80; RESP 20; TEMP 36.7; O2SAT 98
--- NOTE | 2021-06-03 01:04 | PC.NURSE ---
Pt awake in evening but hard to keep attention, not following commands, not keeping eye contact. RN crushed meds, pt unable to take any night PO meds, staring at RN wide eyed, not attempting to take any meds crushed in pudding, did not take anything PO this evening. Pt cont on IV valproic acid and IV fluids
[2021-06-03] MEDS: Dextrose 5 % and 0.45 % NaCl 1,000 ML 100 ML IVCONT ×2 (01:16→11:07)
[2021-06-03 04:00] VITALS: BP 138/95; PULSE 80; RESP 20; TEMP 36.7; O2SAT 90
[2021-06-03 06:07] LABS: Hematocrit 43.1 % (42.0-52.0); Hemoglobin 14.1 g/dl (14.0-18.0); Mean Corpuscular HGB Conc 32.7 g/dl (31.0-36.0); Mean Corpuscular Hemoglobin 30.6 pg (27.0-33.0); Mean Corpuscular Volume 93.5 fL (80.0-98.0); Mean Platelet Volume 10.2 fL (9.4-12.4); Platelet Count 154 X10*3/uL (160-400); Red Blood Count 4.61 X10*6/uL (4.60-5.80); White Blood Count 4.3 X10*3/uL (4.8-10.8)
[2021-06-03 06:36] LABS: Anion Gap 12 (12-20); Blood Urea Nitrogen 7 mg/dL (9-16); Calcium 8.3 mg/dL (8.4-10.2); Carbon Dioxide 26 mmol/L (22-29); Chloride 108 mmol/L (96-108); Creatinine Clr Calc Pharmacy 125.8; Estimated Glomerular Filt Rate > 60; Glucose Fasting 95 mg/dL (60-99); Sodium 142 mmol/L (135-145)
[2021-06-03 07:15] VITALS: BP 142/64; PULSE 78; RESP 20; TEMP 35.5; O2SAT 94
[2021-06-03] MEDS: Sennosides/Docusate Sodium TABLET 1 TAB PO (07:55)
[2021-06-03] MEDS: Aspirin 81 MG TAB.CHEW PO (07:55)
[2021-06-03] MEDS: Acyclovir 200 MG CAPSULE PO (07:55)
[2021-06-03] MEDS: Gabapentin 300 MG CAPSULE PO ×2 (07:55→15:34)
[2021-06-03] MEDS: OLANZapine 5 MG TABLET PO (07:56)
[2021-06-03] MEDS: 0.9 % Sodium Chloride Flush 3 ML SYRINGE IVFLUSH ×2 (07:56→15:34)
[2021-06-03 12:00] VITALS: BP 132/64; PULSE 70; RESP 20; TEMP 36.4; O2SAT 96
[2021-06-03] MEDS: Enoxaparin Sodium 40 MG/0.4 ML SYRINGE SUBCUT (12:19)
--- NOTE | 2021-06-03 12:43 | MHC.SLORD ---
Speech Language Pathology Order Status: AXLE TURNER attempted to see patient for dysphagia treatment this morning. Patient was sleeping and did not wake to verbal stimuli or sternal rub. Patient is on pureed solids (NDD1) and thin liquids. RN reports that patient has been tolerating these consistencies without difficulty. AXLE TURNER will re-evaluate tomorrow morning.
--- NOTE | 2021-06-03 13:47 | PM.DS ---
DS: Providers Provider Date of Service: 06/03/21 Date of admission: 05/29/21 00:04 Primary care physician: Jocelin Randall MD Consults: 05/29/21 00:06 Consult to Nephrology Routine Consulting Provider: Douglas Man Reason for consultation: Hypernatremia 05/31/21 07:42 Consult to Infectious Diseases Routine Consulting Provider: Shelia Smallwood Reason for consultation: enterococcus bacteremia unknown source DS: Diagnosis Discharge Diagnosis (1) Acute hypernatremia: Status: Acute DS: Summary Hospital Course Hospital Course: patient was admitted for metabolic encephalopathy due to hypernatremia from poor intake. his sodium was 158, he was given D5W and sodium improved to 142 at time of discharge, with improvement of mental status to baseline (alert, spontaneously opening eyes, follows very simple commands, occasional speaks but nonsensically, functional paraplegia). patient was evaluated by OVEN TECHNICIAN who recommended pureed solids with thin liquids. he was also noted to have blood culture with e faecium. he was seen by ID who felt this was likely contaminant. repeat blood cultures have been negative, no antibiotics have been recommended. patient is back to baseline and will be discharged back to SNF. Time Spent with Patient Time attestation: Total time spent providing and/or coordinating discharge services: Discharge coordination time: Greater than 30 minutes Quality: Stroke Does the patient have a stroke diagnosis?: No Physical Exam Vital Signs: Vital Signs: Last Vital Signs Temp 97.5 F 06/03/21 12:00 Pulse 70 06/03/21 12:00 Resp 20 06/03/21 12:00 BP 132/64 06/03/21 12:00 Pulse Ox 96 06/03/21 12:00 Body Mass Index 29.8 General: Alert, no acute distress, follows simple commands Resp: CTA bilateral, no accessory muscles used CVS: S1,S2,RRR GI: soft, non tender, non distended Neuro: motor grossly intact, alert Psych: impaired insight DS: Data Data Completed and Pending Labs on day of discharge: Laboratory Results - last 24 hr 06/03/21 06/03/21 05:40 05:40 WBC 4.3 L RBC 4.61 Hgb 14.1 Hct 43.1 MCV 93.5 MCH 30.6 MCHC 32.7 RDW 14.0 Plt Count 154 L MPV 10.2 Absolute Nucleated RBC 0.000 Nucleated RBC % (auto) 0.0 Sodium 142 Potassium 4.0 Chloride 108 Carbon Dioxide 26 Anion Gap 12 BUN 7 L Creatinine 0.63 Estim Creat Clear Calc 125.8 Estimated GFR > 60 Fasting Glucose 95 Calcium 8.3 L Preliminary micro results at discharge 06/01/21 06:08 Blood Culture - Preliminary Blood - Venous No growth after 48 hours. 06/01/21 06:07 Blood Culture - Preliminary Blood - Venous No growth after 48 hours. Discharge Plan Discharge Patient Disposition: er [facility] Discharge Diagnosis: hypernatremia Referrals: [facility] [Other] - 1 Week Jocelin Randall MD [Primary Care Provider] - 1 Week Discharge Medications: Continued trazodone 50 mg Tablet 50 mg PO BEDTIME RF: 0 trazodone 50 mg Tablet 25 mg PO BEDTIME PRN (Reason: Insomnia) RF: 0 sennosides-docusate sodium [Senna-S] 8.6-50 mg Tablet 1 tab PO DAILY RF: 0 melatonin 3 mg Tablet 6 mg PO BEDTIME RF: 0 tamsulosin 0.4 mg Capsule 0.4 mg PO BEDTIME RF: 0 gabapentin 300 mg Capsule 300 mg PO TID RF: 0 aspirin 81 mg Tablet,Chewable 81 mg PO DAILY RF: 0 acyclovir 200 mg Capsule 200 mg PO BID RF: 0 divalproex 125 mg Capsule, Delayed Rel Sprinkle 375 mg PO TID RF: 0 olanzapine 5 mg Tablet,Disintegrating 5 mg PO DAILY RF: 0 olanzapine 5 mg Tablet,Disintegrating 5 mg PO BID PRN (Reason: aggressive behaviors) RF: 0 Discharge Orders: Discharge Order (Routine); Ordered 06/03/21 Ordered By: Ganesh Tolbert Diet: advance to usual diet Activity on Discharge: As tolerated Stand Alone Forms: Patient Portal Discharge page Care Plan Goals: avoid hospitalization Health Concerns: poor oral intake at risk for hypernatremia Plan of Treatment: encourage intake Assessment: see above
--- NOTE | 2021-06-03 14:30 | HO.PM.IMPN ---
Subjective Subjective Date of Service: 06/03/21 Interval History: cc: ams interval history: back to baseline Cardiovascular Cardiovascular: Reports no additional cardiovascular complaints Respiratory Respiratory: Reports no additional respiratory complaints Physical Exam Vital Signs: Vital Signs: Last Vital Signs Temp 97.5 F 06/03/21 12:00 Pulse 70 06/03/21 12:00 Resp 20 06/03/21 12:00 BP 132/64 06/03/21 12:00 Pulse Ox 96 06/03/21 12:00 Body Mass Index 29.8 General: Alert, no acute distress, follows simple commands Resp:? CTA bilateral, no accessory muscles used CVS: S1,S2,RRR GI: soft, non tender, non distended Neuro:? motor grossly intact, alert Psych: impaired insight? Objective Data Active Medications Acetaminophen (Acetaminophen 325 Mg Tablet) 650 mg PO Q6H PRN PRN Reason: Pain, Mild (Pain Scale 1-3) Last Admin: 05/30/21 18:31 Dose: 650 mg Documented by: PEDRO Acyclovir (Acyclovir 200 Mg Capsule) 200 mg PO BID [facility] Last Admin: 06/03/21 07:55 Dose: 200 mg Documented by: AMILCAR Aspirin (Aspirin 81 Mg Tab.Chew) 81 mg PO DAILY [facility] Last Admin: 06/03/21 07:55 Dose: 81 mg Documented by: AMILCAR Enoxaparin Sodium (Enoxaparin Sodium 40 Mg/0.4 Ml Syringe) 40 mg SUBCUT Q24H [facility] Last Admin: 06/03/21 12:19 Dose: 40 mg Documented by: AMILCAR Gabapentin (Gabapentin 300 Mg Capsule) 300 mg PO TID [facility] Last Admin: 06/03/21 07:55 Dose: 300 mg Documented by: AMILCAR Valproic Acid 375 mg/ Dextrose 53.75 mls @ 52.496 mls/hr IV Q8H [facility] Last Infusion: 06/03/21 06:31 Dose: 0 mls/hr Documented by: ANDRES Dextrose/Sodium Chloride (D51/2ns) 1,000 mls @ 100 mls/hr IVCONT .Q10H [facility] Last Admin: 06/03/21 11:07 Dose: 100 mls/hr Documented by: AMILCAR Melatonin (Melatonin 3 Mg Tablet) 6 mg PO BEDTIME PRN PRN Reason: Insomnia Melatonin (Melatonin 3 Mg Tablet) 6 mg PO BEDTIME [facility] Last Admin: 06/02/21 21:51 Dose: Not Given Documented by: FELTON Non-Admin Reason: Patient Refused Olanzapine (Olanzapine 5 Mg Tablet) 5 mg PO BID PRN PRN Reason: aggressive behaviors Last Admin: 05/30/21 18:11 Dose: 5 mg Documented by: Olanzapine (Olanzapine 5 Mg Tablet) 5 mg PO DAILY [facility] Last Admin: 06/03/21 07:56 Dose: 5 mg Documented by: AMILCAR Pharmacy Consult (Consult Rx Perform Med Rec) 1 each MISCELLANE ONCE PRN PRN Reason: Consult order Senna/Docusate Sodium (Sennosides/Docusate Sodium Tablet) 1 tab PO DAILY [facility] Last Admin: 06/03/21 07:55 Dose: 1 tab Documented by: AMILCAR Sodium Chloride (0.9 % Sodium Chloride Flush 3 Ml Syringe) 3 ml IVFLUSH QSHIFT [facility] Last Admin: 06/03/21 07:56 Dose: 3 ml Documented by: AMILCAR Tamsulosin HCl (Tamsulosin Hcl 0.4 Mg Capsule) 0.4 mg PO BEDTIME [facility] Last Admin: 06/02/21 21:51 Dose: Not Given Documented by: FELTON Non-Admin Reason: Patient Refused Trazodone HCl (Trazodone Hcl 25 Mg Halftab) 25 mg PO BEDTIME PRN PRN Reason: Insomnia Trazodone HCl (Trazodone Hcl 50 Mg Tablet) 50 mg PO BEDTIME [facility] Last Admin: 06/02/21 21:52 Dose: Not Given Documented by: FELTON Non-Admin Reason: Patient Refused Labs CBC & Chem 7: 06/03/21 05:40 06/03/21 05:40 Labs: Laboratory Results - last 24 hr 06/03/21 06/03/21 05:40 05:40 MCV 93.5 MCH 30.6 MCHC 32.7 RDW 14.0 Plt Count 154 L MPV 10.2 Absolute Nucleated RBC 0.000 Nucleated RBC % (auto) 0.0 Anion Gap 12 Estim Creat Clear Calc 125.8 Estimated GFR > 60 Fasting Glucose 95 Calcium 8.3 L Microbiology Microbiology Results: Microbiology 06/01/21 06:08 Blood Culture - Preliminary Blood - Venous No growth after 48 hours. 06/01/21 06:07 Blood Culture - Preliminary Blood - Venous No growth after 48 hours. 05/28/21 22:51 Blood Culture - Final Blood - Venous No growth after 5 days. Assessment and Plan (1) Acute hypernatremia: Status: Acute Assessment and Plan: 75M presented wtih ams metabolic encephalopathy due to hypernatremia resolved e faecalis bacteremia unclear source, no sepsis ID appreciated, likely contaminant, repeat negative, no abx epilepsy depakote dysphagia upgraded to pureed with thin liquids dementia with behaviour abnormalitis zyprexa dvt prophylaxis - changed to lovenox Quality Stroke Does the patient have a stroke diagnosis?: No VTE Prior VTE?: No VTE Risk Level:: Medical - moderate - high VTE Device Contraindication: Treatment Not Indicated VTE Drug Contraindication: N/A - Med Ordered
--- NOTE | 2021-06-03 15:20 | PC.NURSE ---
Skin/wound assessment completed. Patient has open blisters on inner bilateral buttocks consider stage 2 which was present on admission. Redness to elbows and bruising to bilateral upper extremities. No other skin issues noted at this time
[2021-06-03 15:43] VITALS: BP 124/84; PULSE 74; RESP 16; TEMP 36.6; O2SAT 92
[2021-06-03 16:30] LABS: COVID-19 Test Negative (Negative)
--- NOTE | 2021-06-03 16:32 | MHC.CM.PN ---
Patient has been medically cleared for dc to LTC/SNF today. Patient will return to [facility] today at 6PM, via [facility].CM called Daughter/Cami @ [phone] and left a detailed message outlining the dc plan and again reviewing the IMM (which will be mailed out certified letter to her and a copy has been placed on the chart).
== END 2021-06-03 18:35 | disposition skilled nursing facility (03) | DRG 640 ==
LOC: HO.ED 05-29 00:03 → HO.EDOVER 05-29 00:23 → HO.IMC 05-29 19:24
PROVIDERS: Admitting Provider Hospitalist; Emergency Provider Emergency Medicine; PCP Internal Medicine; Visit Provider Internal Medicine
DX: E87.0 Hyperosmolality and hypernatremia (principal); G93.41 Metabolic encephalopathy; F02.81 Dementia in other diseases classified elsewhere, unspecified severity, with behavioral disturbance; G40.909 Epilepsy, unspecified, not intractable, without status epilepticus; G30.9 Alzheimer's disease, unspecified; R13.10 Dysphagia, unspecified; N40.0 Benign prostatic hyperplasia without lower urinary tract symptoms; Z86.16 Personal history of COVID-19; Z74.01 Bed confinement status; Z20.822 Contact with and (suspected) exposure to COVID-19; Z87.440 Personal history of urinary (tract) infections; Z79.899 Other long term (current) drug therapy; Z66 Do not resuscitate
CPT/HCPCS: 36415; 71045; 80048; 80076; 81003; 82436; 83605; 83690; 83735; 83880; 83935; 84133; 84300; 84484; 85025; 85027; 87040; 87077; 87147; 87186; 87205; 87635; 92610; 93005; 96365; 99284; 99285; J0290; J1650

== ENCOUNTER 2021-06-08 21:09 | Emergency (ER) | payer MEDICARE, MEDICAID, SELFPAY ==
[2021-06-08 21:27] VITALS: BP 00/00; PULSE 84; RESP 16; TEMP 36.6; O2SAT 96; BMI 25.8
--- NOTE | 2021-06-08 22:16 | ED.MALEGU ---
HPI - Male Genitourinary General Chief complaint: Urogenital-Male Stated complaint: ? hernandez problems Time Seen by Provider: 06/08/21 22:16 Source: EMS and RN notes reviewed Mode of arrival: EMS History of Present Illness HPI Narrative: Patient history of dementia sent from the intermediate as he pulled out his Hernandez catheter nurses try to put the catheter but had resistance and putting the catheter and some bleeding unable to put the Hernandez catheter patient does have a habit of masturbation which causes Hernandez catheter dislodgement Related Data Home Medications Medication Instructions Recorded Confirmed acyclovir 200 mg capsule 200 mg PO BID 05/28/21 05/28/21 aspirin 81 mg chewable tablet 81 mg PO DAILY 05/28/21 05/28/21 divalproex 125 mg capsule,delayed 375 mg PO TID 05/28/21 05/28/21 release sprinkle gabapentin 300 mg capsule 300 mg PO TID 05/28/21 05/28/21 melatonin 3 mg tablet 6 mg PO BEDTIME 05/28/21 05/28/21 olanzapine 5 mg disintegrating 5 mg PO BID PRN 05/28/21 05/28/21 tablet olanzapine 5 mg disintegrating 5 mg PO DAILY 05/28/21 05/28/21 tablet sennosides 8.6 mg-docusate sodium 1 tab PO DAILY 05/28/21 05/28/21 50 mg tablet (Senna-S) tamsulosin 0.4 mg capsule 0.4 mg PO BEDTIME 05/28/21 05/28/21 trazodone 50 mg tablet 25 mg PO BEDTIME PRN 05/28/21 05/28/21 trazodone 50 mg tablet 50 mg PO BEDTIME 05/28/21 05/28/21 Allergies Allergy/AdvReac Type Severity Reaction Status Date / Time No Known Allergies Allergy Verified 05/28/21 23:00 [No Known Allergies*] Review of Systems Review of Systems: Yes all other systems are reviewed and are negative PMFSH Past Medical History Medical History Enterococcal bacteremia Family History Family History Mother Alzheimer's dementia Social History Social History Household Members: Other Housing: [facility]dc Do you presently have visiting nurse or other home services: No Unable to assess alcohol history related to: Unable to respond Patient Tobacco Use Status: Tobacco use Unknown Advance Directives: No Advance Directives Information Provided: Yes service: No Current occupational status: retired Physical Exam Vital Signs: Vital Signs: Last Vital Signs Temp 97.9 F 06/08/21 21:27 Pulse 85 06/08/21 22:18 Resp 16 06/08/21 21:27 BP 105/62 06/08/21 22:18 Pulse Ox 96 06/08/21 21:27 BMI result Body Mass Index 25.8 Appearance: Alert. Demented ENT: Pharynx normal. Oral Mucosa moist Neck: Normal inspection. Neck supple. CVS: Normal heart rate and rhythm. Pulses normal. Respiratory: No respiratory distress. Equal air entry bilateral, Abdomen: Soft and nontender. Bowel sounds are present, Skin: Skin warm and dry. Normal skin color. Normal skin turgor. Extremities: No lower extremity edema. Neuro: Oriented X1 no focal deficit Course Reevaluation(s) Reevaluation #1: Patient is status post Hernandez catheter placement tried to pull his catheter again without success but noticed small amount of blood in the tube, Hernandez catheter was flushed clear return no blood clots Time: 01:45 MDM - Male Genitourinary MDM Narrative Medical decision making narrative: Sixteen Ugandan coude catheter was placed receptive precaution yellowish urine drained Lab Data Attestation: I reviewed the patient's lab results. Labs: Lab Results 06/08/21 Range/Units 23:36 Urine Color DK YELLOW Urine Appearance TURBID Urine pH 6.0 (5.0-8.0) Ur Specific [place] >= 1.030 H (1.005-1.025) Urine Protein 2+ H (NEG-TRACE) MG/DL Urine Glucose (UA) NEG (NEG) MG/DL Urine Ketones 40 (NEG) MG/DL Urine Blood 3+ H (NEG) Urine Nitrite NEG (NEG) Ur Leukocyte Esterase NEG (NEG) Urine RBC 30-49 H (0) /HPF Urine WBC 0 (0-4) /HPF Ur Squamous Epith Cells TRACE /LPF Ur Renal Epithelial Cell TRACE /LPF Amorphous Sediment 1+ /LPF Urine Bacteria TRACE /LPF Urine Mucus 1+ /LPF Discharge Plan Discharge Clinical Impression: Chronic indwelling Hernandez catheter Patient Disposition: Xfer [facility] Transfer Details: 16 Ugandan Hernandez catheter replaced Instructions: Hernandez Catheter Placement and Care (ED) Additional Instructions: Hernandez catheter care as advised Prescriptions: No [facility] trazodone 50 mg Tablet 50 mg PO BEDTIME RF: 0 trazodone 50 mg Tablet 25 mg PO BEDTIME PRN (Reason: Insomnia) RF: 0 sennosides-docusate sodium [Senna-S] 8.6-50 mg Tablet 1 tab PO DAILY RF: 0 melatonin 3 mg Tablet 6 mg PO BEDTIME RF: 0 tamsulosin 0.4 mg Capsule 0.4 mg PO BEDTIME RF: 0 gabapentin 300 mg Capsule 300 mg PO TID RF: 0 aspirin 81 mg Tablet,Chewable 81 mg PO DAILY RF: 0 acyclovir 200 mg Capsule 200 mg PO BID RF: 0 divalproex 125 mg Capsule, Delayed Rel Sprinkle 375 mg PO TID RF: 0 olanzapine 5 mg Tablet,Disintegrating 5 mg PO DAILY RF: 0 olanzapine 5 mg Tablet,Disintegrating 5 mg PO BID PRN (Reason: aggressive behaviors) RF: 0 Interventions: ED Discharge Assessment Last Done: 06/09/21 00:17 Discharge Date/Time: 06/09/21 00:23
[2021-06-08 22:18] VITALS: BP 105/62; PULSE 85
[2021-06-08 23:41] LABS: Appearance Urine TURBID; Color Urine DK YELLOW; Glucose Urine UA NEG (NEG); Leukocyte Esterase Urine NEG (NEG); Nitrite Urine NEG (NEG); Specific Gravity - Urine >= 1.030 (1.005-1.025); UACC Culture Trigger NO; Urine Blood 3+ (NEG); Urine Ketones 40 MG/DL (NEG); Urine Protein 2+ MG/DL (NEG-TRACE)
[2021-06-08 23:47] LABS: Mucus Urine 1+ /LPF
[2021-06-08 23:48] LABS: Amorphous Sediment Urine 1+ /LPF; Bacteria Urine TRACE /LPF; RBC Urine 30-49 /HPF (0); Renal Epithelial Cells Urine TRACE /LPF; Squamous Epithelial Cell Urine TRACE /LPF; WBC Urine 0 /HPF (0-4)
[2021-06-08] MEDS: Lidocaine HCl 2 % Urojet 10 ML JEL.PF.APP TOPICAL (23:57)
--- NOTE | 2021-06-09 00:20 | PC.NURSE ---
[address] F/C WITH NO EFFECT. UROGET ORDER AND 18 FR COUDE CATHETER PLACED BY DR DWYER DRAINING CLEAR YELLOW ORANGE URINE.
--- NOTE | 2021-06-09 00:36 | PC.NURSE ---
PT WAITING FOR RIDE HOME TO SNF ARRANGEMENT MADE FOR TRANSPORT HOME. MICHAEL MORALES WILL RESUME PT CARE.
--- NOTE | 2021-06-09 01:20 | PC.NURSE ---
REPORT CALLED TO [facility] REPORT GIVEN TO P[employer] MANAGER.
[2021-06-09] MEDS: LORazepam 2 MG/ML VIAL IM (01:56)
--- NOTE | 2021-06-09 02:01 | PC.NURSE ---
Pt appears anxious, restless in stretcher. per jenny Montoya IM to enable pt's care and wellbeing.
--- NOTE | 2021-06-09 02:03 | PC.NURSE ---
PT BECAME MORE AGITATED AND WAS KICKING LEG OUT OF BED AND PULLING ON F/C AREA MORE BLOOD CAME OUT OF PENIS AREA. F/C FLUSHED WITH WATER AND CLEAR URINE CAME OUT. MICHAEL KIRK RESUMING PT CARE DR DWYER AWARE. PT GETTING BLADDER SCANNED AT THIS TIME.
== END 2021-06-09 05:26 | disposition skilled nursing facility (03) ==
PROVIDERS: Emergency Provider Internal Medicine
DX: Z46.6 Encounter for fitting and adjustment of urinary device (principal)
CPT/HCPCS: 51702; 81001; 96372; 99284; J2060

== ENCOUNTER 2021-07-19 22:41 | Inpatient (IN) | payer MEDICARE, MEDICAID, SELFPAY ==
--- NOTE | ~2021-07-19 | XR_ITS ---
EXAMINATION: XR CHEST CLINICAL INFORMATION: Fever. Pneumonia. COMPARISON: 05.28.2021 TECHNIQUE: Frontal view of the chest was obtained. FINDINGS: Left lower lobe streaky opacity redemonstrated. Right lung clear. No pleural effusion or pneumothorax. Normal heart size and pulmonary vascularity. No osseous abnormalities. XR/XR chest 1V IMPRESSION: Similar-appearing left medial basilar streaky opacity, which could represent infiltrate or atelectasis.
[2021-07-19 22:57] VITALS: BP 124/66; BP 129/78; PULSE 110; RESP 30; TEMP 39.2; O2SAT 88; O2SAT 93; BMI 23.8
--- NOTE | 2021-07-19 23:18 | ECG_ITS ---
Test Reason : ABNORMAL LABS Blood Pressure : / mmHG Vent. 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
[2021-07-20] VITALS (12 sets, daily range): BP systolic 99–151; BP diastolic 48–93; PULSE 70–124; RESP 14–40; TEMP 36.2–39.1; O2SAT 88–100
[2021-07-20] MEDS: 0.9 % Sodium Chloride 1,000 ML 999 ML IV ×2 (00:09→02:39)
--- NOTE | 2021-07-20 00:52 | ED_ITS ---
HPI - General Adult General Chief complaint: Recheck/Abnormal Lab/Rx Stated complaint: ?COVID/?UTI Time Seen by Provider: 07/19/21 23:12 Source: RN notes reviewed History of Present Illness HPI narrative: Patient is 75 years old with history of dementia COPD , DNR DNI sent from care home increased pathology and hypoxia saturating 86% at room air improved to 92% on 2 L lab workup done showed WBC count of 13.7 potassium of 4.1 creatinine 1.19 sodium 158 at care home prior to transfer. Patient is nonverbal nonambulatory on arrival patient temperature was 102.6 degrees Related Data Home Medications Medication Instructions Recorded Confirmed acyclovir 200 mg capsule 200 mg PO BID 05/28/21 05/28/21 aspirin 81 mg chewable tablet 81 mg PO DAILY 05/28/21 05/28/21 divalproex 125 mg capsule,delayed 375 mg PO TID 05/28/21 05/28/21 release sprinkle gabapentin 300 mg capsule 300 mg PO TID 05/28/21 05/28/21 melatonin 3 mg tablet 6 mg PO BEDTIME 05/28/21 05/28/21 olanzapine 5 mg disintegrating 5 mg PO BID PRN 05/28/21 05/28/21 tablet olanzapine 5 mg disintegrating 5 mg PO DAILY 05/28/21 05/28/21 tablet sennosides 8.6 mg-docusate sodium 1 tab PO DAILY 05/28/21 05/28/21 50 mg tablet (Senna-S) tamsulosin 0.4 mg capsule 0.4 mg PO BEDTIME 05/28/21 05/28/21 trazodone 50 mg tablet 25 mg PO BEDTIME PRN 05/28/21 05/28/21 trazodone 50 mg tablet 50 mg PO BEDTIME 05/28/21 05/28/21 Allergies Allergy/AdvReac Type Severity Reaction Status Date / Time No Known Allergies Allergy Verified 05/28/21 23:00 [No Known Allergies*] Review of Systems Review of Systems: Yes Unobtainable due to mental status PMFSH Past Medical History Medical History Enterococcal bacteremia Family History Family History Mother Alzheimer's dementia Social History Social History Household Members: Other Housing: Prison Do you presently have visiting nurse or other home services: No Unable to assess alcohol history related to: Unable to respond Patient Tobacco Use Status: Tobacco use Unknown Advance Directives: No service: No Current occupational status: retired Physical Exam Vital Signs: Vital Signs: Last Vital Signs Temp 102.6 F H 07/19/21 22:57 Pulse 124 H 07/20/21 00:07 Resp 40 H 07/20/21 00:07 BP 150/93 H 07/20/21 00:07 Pulse Ox 90 L 07/20/21 00:07 Oxygen Flow Rate 4 07/19/21 22:57 BMI result Body Mass Index 23.8 Appearance: Lethargic obtunded minimal response to painful stimuli breathing office on Eyes: Pupils normal size normal reactive ENT dry oral mucosa Oral Mucosa Neck: Normal inspection. Neck supple. CVS: Normal heart rate and rhythm. Pulses normal. Respiratory: Moderate respiratory distress. Equal air entry bilateral, bilateral crackles Abdomen: Soft and nontender. Bowel sounds are present, no mass palpable, no CVA tenderness Skin: Skin warm and dry. Normal skin color. Normal skin turgor. Extremities: No lower extremity edema. No calf tenderness Neuro: Nonverbal Medical Decision Making MDM Narrative Medical decision making narrative: 0100: Patient febrile tachycardic hypoxic with increased respiratory rate source of infection not clear possible COVID meeting the criteria for sepsis IV fluid started on IV antibiotic Rocephin was given, labs are still pending lactic acid level is 3.6 will give IV fluids 30 mL/kilograms body weight Lab Data Lab results reviewed: Yes I reviewed the patient's lab results. Result diagrams: 07/20/21 00:55 07/20/21 00:55 Labs: Lab Results 07/20/21 07/20/21 07/20/21 Range/Units 00:55 00:55 01:16 VBG pH 7.45 H (7.32-7.43) VBG pCO2 29 mmHg VBG pO2 77 mmHg VBG HCO3 20 L (22-26) mmol/L VBG O2 Saturation 93.0 % VBG Base Excess -1.8 mmol/L Sodium 159 H (135-145) mmol/L Potassium 4.2 (3.3-5.1) mmol/L Chloride 123 H (96-108) mmol/L Carbon Dioxide 22 (22-29) mmol/L Anion Gap 18 (12-20) BUN 57 H (9-16) mg/dL Creatinine 1.22 (0.5-1.4) mg/dL Estim Creat Clear Calc 56.5 Estimated GFR 58 Random Glucose 153 H (60-115) mg/dL Lactic Acid 3.6 H* (0.5-2.0) mmol/L Calcium 9.6 D (8.4-10.2) mg/dL Magnesium 2.5 (1.6-2.6) mg/dL Total Bilirubin 0.8 (0.0-1.0) mg/dL AST 11 D (5-37) U/L ALT 10 (0-40) U/L Alkaline Phosphatase 92 (39-117) U/L Total Protein 7.9 D (6.5-8.0) g/dL Albumin 3.7 (3.5-5.0) g/dL ECG Data Attestation: I personally reviewed and interpreted this ECG as follows: Interpretation: Sinus tachycardia heart rate 118 beats per minute left axis deviation no acute STT wave changes no acute ischemia Discharge Plan Discharge Clinical Impression: Acidosis, lactic Fever Qualifiers: Fever type: unspecified Qualified Code(s): R50.9 - Fever, unspecified Patient Disposition: Admitted As Inpatient
[2021-07-20 00:59] LABS: MANUAL DIFF FLAG NO
[2021-07-20 01:01] LABS: Hemoglobin 17.7 g/dl (14.0-18.0); Imm Gran Abs Auto 0.03 X10*3/uL (0.00-0.03); Imm Gran Pct Auto 0.3 % (0.0-0.4); Monocytes Absolute Auto 0.7 X10*3/uL (0.1-1.2)
[2021-07-20 01:11] LABS: Basophils Absolute Auto 0.1 X10*3/uL (0.0-0.2); Basophils Percent Auto 0.6 % (0-2); Eosinophils Absolute Auto 0.1 X10*3/uL (0.0-0.4); Eosinophils Percent Auto 0.7 % (0-4); Lymphocytes Absolute Auto 0.8 X10*3/uL (1.2-4.9); Lymphocytes Percent Auto 6.8 % (20-40); Mean Corpuscular HGB Conc 31.1 g/dl (31.0-36.0); Mean Corpuscular Hemoglobin 30.7 pg (27.0-33.0); Mean Corpuscular Volume 98.8 fL (80.0-98.0); Monocytes Percent Auto 6.3 % (2-11); Neutrophils Absolute Auto 9.4 x10*3/uL (2.0-8.3); Neutrophils Percent Auto 85.3 % (45-73); Platelet Count 263 X10*3/uL (160-400); Red Blood Count 5.77 X10*6/uL (4.60-5.80); Red Cell Distribution Width 14.8 % (11.0-16.0)
[2021-07-20 01:14] LABS: Lactic Acid 3.6 mmol/L (0.5-2.0)
--- NOTE | 2021-07-20 01:18 | PC.NURSE ---
report received from relief charge nurse. made RN aware that liter of NS was up at bedside however not infusing as IV tubing was clamped. RN flushed left hand #22G and IVF began to infuse without issue. Pt is nonresponsive to this RN, with Nonrebreather mask in place with O2 sat at 96%
[2021-07-20 01:22] LABS: Venous Blood Gas Refer to POC result
[2021-07-20 01:22] LABS: VBG Base Excess -1.8 mmol/L; VBG HCO3 20 mmol/L (22-26); VBG pCO2 29 mmHg; VBG pH 7.45 (7.32-7.43); VBG pO2 77 mmHg
[2021-07-20 01:26] LABS: Alanine Aminotransferase 10 U/L (0-40); Albumin Level 3.7 g/dL (3.5-5.0); Alkaline Phosphatase 92 U/L (39-117); Anion Gap 18 (12-20); Aspartate Amino Transferase 11 U/L (5-37); Bilirubin Total 0.8 mg/dL (0.0-1.0); Blood Urea Nitrogen 57 mg/dL (9-16); Calcium 9.6 mg/dL (8.4-10.2); Carbon Dioxide 22 mmol/L (22-29); Chloride 123 mmol/L (96-108); Creatinine Clr Calc Pharmacy 56.5; Estimated Glomerular Filt Rate 58; Glucose Random 153 mg/dL (60-115); Magnesium 2.5 mg/dL (1.6-2.6); Potassium 4.2 mmol/L (3.3-5.1); Sodium 159 mmol/L (135-145); Total Protein 7.9 g/dL (6.5-8.0)
[2021-07-20] MEDS: Acetaminophen Supp 650 MG SUPP.RECT PR (01:32)
[2021-07-20] MEDS: cefTRIAXone sodium 1 GM in 0.9 % Sodium Chloride 50 ML IV (01:38)
[2021-07-20] MEDS: 0.9 % Sodium Chloride 2,500 ML 2500 ML IV (01:41)
[2021-07-20 01:46] LABS: COVID-19 Test Negative (Negative)
--- NOTE | 2021-07-20 02:40 | PC.NURSE ---
Late entry note: Clarification obtained by MD anaya prior to this RN hanging/scanning pt's 2500ml NS order. This RN wanted to confirm if this new order for 2500 was in addition to 1liter that was previously ordered/hung and he stated no that when he orders that the initial liter given is to be counted. This RN wants to clarify that now after the scanning of the most recent NS Liter bag that when this bag infuses the pt would have received a total of 3500ML of NS not 4500mls.
[2021-07-20 02:56] LABS: Reflex Lactate? Lactic Acid Added
[2021-07-20 02:57] LABS: Appearance Urine HAZY; Color Urine YELLOW; Glucose Urine UA NEG (NEG); Leukocyte Esterase Urine 2+ (NEG); Nitrite Urine POS (NEG); UACC Culture Trigger YES; Urine Blood 1+ (NEG); Urine Ketones NEG (NEG); Urine Protein 1+ MG/DL (NEG-TRACE)
[2021-07-20 03:13] LABS: RBC Urine 0-2 /HPF (0); Squamous Epithelial Cell Urine TRACE /LPF
[2021-07-20 03:14] LABS: Amorphous Sediment Urine TRACE /LPF; Bacteria Urine 1+ /LPF; Calcium Phosphate Crystals Ur 2+ /LPF; WBC Urine 50-75 /HPF (0-4)
--- NOTE | 2021-07-20 06:04 | P.HPHOSP_ITS ---
History of Present Illness Date of Service: 07/20/21 Chief Complaint: lethargy and hypoxia this is a 75-year-old male with past medical history of COPD, BPH,, dementia, who was sent to the hospital from intermediate for increased lethargy as well as hypoxia found to have O2 of 86%. Patient is very lethargic, somnolent, responds to painful stimuli but unable to give any much history. On arrival to the ED patient found to have a temp of 102.6?, heart rate of 110, respiratory rate of 30, blood pressure of 124/66, currently on 4 L of nasal cannula satting 90%. Labs are significant for leukocytosis of 11 point no, pH of 7.45, sodium of 159, chloride of 123, BUN of 57, creatinine of 1.22 with a baseline around 0.6, lactic acid of 3.6, UA positive for leukocyte Estrace, nitrites, as well as WBC. COVID-19 negative. Chest x-ray shows similar appearing left medial basilar streaky opacity which could represent infiltrates or atelectasis. Patient will be admitted for further management I am unable to obtain further review of system or complete past medical history Review of Systems Review of Systems: Yes Unobtainable due to mental condition and Unobtainable due to mental status [facility] Medical History Enterococcal bacteremia Family History Mother Alzheimer's dementia Social History Household Members: Other Housing: [facility] Do you presently have visiting nurse or other home services: No Unable to assess alcohol history related to: Unable to respond Patient Tobacco Use Status: Tobacco use Unknown Advance Directives: No service: No Current occupational status: retired Meds Allergies Allergy/AdvReac Type Severity Reaction Status Date / Time No Known Allergies Allergy Verified 05/28/21 23:00 [No Known Allergies*] Home Medications Medication Instructions Recorded Confirmed Last Taken Type aspirin 81 mg chewable tablet 81 mg PO DAILY 05/28/21 07/20/21 07/19/21 17:00 History divalproex 125 mg capsule,delayed 375 mg PO TID 05/28/21 07/20/2122 17:00 History release sprinkle gabapentin 300 mg capsule 300 mg PO TID 05/28/21 07/20/21 07/19/21 17:00 History melatonin 3 mg tablet 6 mg PO BEDTIME 05/28/21 07/20/21 07/18/21 21:00 History olanzapine 5 mg disintegrating 5 mg PO DAILY 05/28/21 07/20/21 07/18/21 09:00 History tablet sennosides 8.6 mg-docusate sodium 1 tab PO DAILY 05/28/21 07/20/21 07/18/21 21:00 History 50 mg tablet (Senna-S) tamsulosin 0.4 mg capsule 0.8 mg PO BEDTIME 05/28/21 07/20/21 07/18/21 21:00 History trazodone 50 mg tablet 25 mg PO BEDTIME PRN 05/28/21 05/28/21 Unknown History trazodone 50 mg tablet 50 mg PO BEDTIME 05/28/21 07/20/21 07/18/21 21:00 History finasteride 5 mg tablet 1 tab PO DAILY 07/20/21 07/20/21 07/18/21 21:00 History Physical Exam Vital Signs and Narrative: Vital Signs: Last Vital Signs Temp 100.3 F 07/20/21 03:08 Pulse 94 07/20/21 04:05 Resp 28 H 07/20/21 04:05 BP 127/73 07/20/21 04:05 Pulse Ox 94 07/20/21 04:05 Oxygen Flow Rate 4 07/19/21 22:57 BMI result Body Mass Index 23.8 Const: Other: somnolent, responds to painful stimuli but is not waking up to answer any questions General: cooperative and no acute distress Eyes: General: appearance normal, both eyes and all related structures Pupils: Equal, round and reactive pupils present Resp: Effort & Inspection: normal respiratory effort Auscultation: clear to auscultation bilaterally Cardio: Rate: regular rate Rhythm: regular rhythm GI: Palpation (GI): Soft to palpation Auscultation: normal bowel sounds Skin: General skin exam: no rashes or lesions noted Neuro: Cranial nerves: Yes Equal, round and reactive pupils present Extrem: General: Yes normal to inspection and Yes no pedal edema Results Labs CBC and Chem 7: 07/20/21 00:55 07/20/21 00:55 Labs: Laboratory Results - last 24 hr 07/20/21 07/20/21 07/20/21 00:55 00:55 00:55 MCV 98.8 H MCH 30.7 MCHC 31.1 RDW 14.8 Plt Count 263 D MPV 11.0 Immature Gran % (Auto) 0.3 Neut % (Auto) 85.3 H Lymph % (Auto) 6.8 L [place] % (Auto) 6.3 Eos % (Auto) 0.7 Baso % (Auto) 0.6 Lymph # (Auto) 0.8 L [place] # (Auto) 0.7 Eos # (Auto) 0.1 Baso # (Auto) 0.1 Abs Immat Gran (auto) 0.03 Absolute Neuts (auto) 9.4 H Absolute Nucleated RBC 0.000 Nucleated RBC % (auto) 0.0 VBG pH VBG pCO2 VBG pO2 VBG HCO3 VBG O2 Saturation VBG Base Excess Anion Gap 18 Estim Creat Clear Calc 56.5 Estimated GFR 58 Random Glucose 153 H Lactic Acid Calcium 9.6 D Magnesium 2.5 Total Bilirubin 0.8 AST 11 D ALT 10 Alkaline Phosphatase 92 Total Protein 7.9 D Albumin 3.7 Urine Color Urine Appearance Urine pH Ur Specific [place] Urine Protein Urine Glucose (UA) Urine Ketones Urine Blood Urine Nitrite Ur Leukocyte Esterase Urine RBC Urine WBC Ur Squamous Epith Cells Calcium Phosphate Cryst Amorphous Sediment Urine Bacteria COVID-19 (HAILEY) Negative COVID-19 Clin Com See Note 07/20/21 07/20/21 07/20/21 00:55 01:16 02:48 MCV MCH MCHC RDW Plt Count MPV Immature Gran % (Auto) Neut % (Auto) Lymph % (Auto) [place] % (Auto) Eos % (Auto) Baso % (Auto) Lymph # (Auto) [place] # (Auto) Eos # (Auto) Baso # (Auto) Abs Immat Gran (auto) Absolute Neuts (auto) Absolute Nucleated RBC Nucleated RBC % (auto) VBG pH 7.45 H VBG pCO2 29 VBG pO2 77 VBG HCO3 20 L VBG O2 Saturation 93.0 VBG Base Excess -1.8 Anion Gap Estim Creat Clear Calc Estimated GFR Random Glucose Lactic Acid 3.6 H* Calcium Magnesium Total Bilirubin AST ALT Alkaline Phosphatase Total Protein Albumin Urine Color YELLOW Urine Appearance HAZY Urine pH 7.0 Ur Specific [place] 1.020 Urine Protein 1+ H Urine Glucose (UA) NEG Urine Ketones NEG Urine Blood 1+ H Urine Nitrite POS H Ur Leukocyte Esterase 2+ H Urine RBC 0-2 Urine WBC 50-75 H Ur Squamous Epith Cells TRACE Calcium Phosphate Cryst 2+ Amorphous Sediment TRACE Urine Bacteria 1+ COVID-19 (HAILEY) COVID-19 Clin Com Imaging Radiologist's Impressions: Impressions Chest X-Ray 07/19/21 23:55 IMPRESSION: Similar-appearing left medial basilar streaky opacity, which could represent infiltrate or atelectasis. Assessment and Plan (1) Toxic metabolic encephalopathy: Status: Acute (2) Dehydration: Status: Acute (3) DERICK (acute kidney injury): Status: Acute (4) Sepsis: Status: Acute (5) UTI (urinary tract infection): Status: Acute (6) Acute respiratory failure with hypoxia: Status: Acute 75-year-old male presents to the hospital from intermediate with i ncreased lethargy and hypoxia # toxic metabolic encephalopathy - most likely secondary to sepsis, dehydration, as well as hypernatremia - treatment as below with IV antibiotics, IV fluids - follow mental status - will hold any sedatingmedications # acute hypoxic respiratory failure - most likely secondary to pneumonia - chest x-ray showing infiltrate - patient has evidence of sepsis which is most likely multifactorial, has leukocytosis, - will treat with IV antibiotics - monitor respiratory status # sepsis - most likely multifactor secondary to UTI as well as pneumonia - has elevated lactic acid that has resolved after IV fluids - was treat with IV antibiotics, IV fluids - although cultures # UTI - positive UA - IV antibiotics - although cultures # DERICK - secondary to dehydration - IV fluids - follow BMP # hypernatremia - most likely secondary to dehydration - will start with IV fluids - monitor BMP closely # lactic acidosis - secondary to acute infection - resolved DVT prophylaxis: Quality Stroke Does the patient have a stroke diagnosis?: No VTE Prior VTE?: No VTE Risk Level:: Medical - moderate - high VTE Device Contraindication: Treatment Not Indicated VTE Drug Contraindication: N/A - Med Ordered
[2021-07-20] MEDS: Azithromycin 500 MG in 0.9 % Sodium Chloride 250 ML 125 MG IV (07:13)
[2021-07-20] MEDS: Heparin Sodium,Porcine 5,000 UNIT/ML VIAL 5000 UNIT SUBCUT ×2 (07:13→19:44)
[2021-07-20 08:03] LABS: ~Lactic Acid-LAB USE ONLY 2.4 mmol/L (0.5-2.0)
[2021-07-20] MEDS: 0.9 % Sodium Chloride Flush 3 ML SYRINGE IVFLUSH ×2 (08:05→19:45)
[2021-07-20 08:17] LABS: Anion Gap 10 (12-20); Blood Urea Nitrogen 45 mg/dL (9-16); Calcium 8.1 mg/dL (8.4-10.2); Carbon Dioxide 24 mmol/L (22-29); Chloride 129 mmol/L (96-108); Creatinine Clr Calc Pharmacy 89.6; Estimated Glomerular Filt Rate > 60; Glucose Random 123 mg/dL (60-115); Potassium 3.7 mmol/L (3.3-5.1)
[2021-07-20] MEDS: Sodium Chloride 0.45 % 1,000 ML 100 ML IVCONT (08:18)
[2021-07-20 08:32] LABS: Sodium 159 mmol/L (135-145)
[2021-07-20] MEDS: Dextrose 5 % 1,000 ML 100 ML IVCONT ×3 (08:42→17:47)
--- NOTE | 2021-07-20 09:37 | PC.NURSE ---
morning PO meds held, patient too lethargic.
[2021-07-20 09:38] LABS: Reflex Lactate? 2 Y
--- NOTE | 2021-07-20 10:01 | PHA.MEDREC ---
Pharmacy Consult ? Medication Reconciliation Pharmacy has completed the medication reconciliation.
[2021-07-20 11:32] LABS: Anion Gap 11 (12-20); Blood Urea Nitrogen 44 mg/dL (9-16); Calcium 8.4 mg/dL (8.4-10.2); Carbon Dioxide 25 mmol/L (22-29); Chloride 128 mmol/L (96-108); Creatinine Clr Calc Pharmacy 89.6; Estimated Glomerular Filt Rate > 60; Glucose Random 117 mg/dL (60-115); Potassium 3.9 mmol/L (3.3-5.1); Sodium 160 mmol/L (135-145)
--- NOTE | 2021-07-20 12:39 | PM.CNNEP ---
History of Present Illness Reason for Consult Consult date: 07/20/21 Reason for consult: Hypernatremia Chief Complaint Chief complaint: Sepsis History of Present Illness Narrative: 75-year-old male with medical history of COPD, BPH,, dementia, who was sent to the hospital from assisted for increased lethargy as well as hypoxia found to have O2 of 86%.? Patient is very lethargic, somnolent,? responds to painful stimuli but unable to give any much history. h/o Hypernatremia in the past Review of Systems Review of Systems Yes Unobtainable due to mental condition and Unobtainable due to mental status [facility] Past Medical History Medical History Enterococcal bacteremia Family History Family History Mother Alzheimer's dementia Social History Social History Household Members: Other Housing: Snf Do you presently have visiting nurse or other home services: No Unable to assess alcohol history related to: Unable to respond Patient Tobacco Use Status: Tobacco use Unknown Use of substances other than those prescribed or required for medical reasons: Unable to respond Currently Displaying Signs/Symptoms of Drug Intoxication Withdrawal: No Advance Directives: No Recently lost weight without trying: Unsure Poor oral hygiene: Yes service: No Current occupational status: retired [employer] Allergies Allergy/AdvReac Type Severity Reaction Status Date / Time No Known Allergies Allergy Verified 05/28/21 23:00 [No Known Allergies*] Active Medications: Current Medications Acetaminophen (Acetaminophen 325 Mg Tablet) 650 mg PO Q6H PRN PRN Reason: Pain, Mild (Pain Scale 1-3) Aspirin (Aspirin 81 Mg Tab.Chew) 81 mg PO DAILY [facility] Last Admin: 07/20/21 09:36 Dose: Not Given Documented by: Divalproex Sodium (Divalproex Sodium Sprinkles 125 Mg ) 375 mg PO TID [facility] Last Admin: 07/20/21 09:36 Dose: Not Given Documented by: Enoxaparin Sodium (Enoxaparin Sodium 40 Mg/0.4 Ml Syringe) 40 mg SUBCUT Q24H [facility] Last Admin: 07/20/21 08:37 Dose: Not Given Documented by: Finasteride (Finasteride 5 Mg Tablet) 5 mg PO DAILY [facility] Last Admin: 07/20/21 09:36 Dose: Not Given Documented by: Heparin Sodium (Porcine) (Heparin Sodium,Porcine 5,000 Unit/Ml Vial) 5,000 unit SUBCUT Q12H [facility] Last Admin: 07/20/21 07:13 Dose: 5,000 unit Documented by: Azithromycin 500 mg/ Sodium (Chloride) 250 mls @ 125 mls/hr IV Q24H [facility] Last Infusion: 07/20/21 09:16 Dose: Infused Documented by: Ceftriaxone Sodium 1 gm/ (Sodium Chloride) 50 mls @ 100 mls/hr IV Q24H [facility] Dextrose (D5w) 1,000 mls @ 200 mls/hr IVCONT .Q5H [facility] Last Admin: 07/20/21 11:47 Dose: 100 mls/hr Documented by: Azithromycin 500 mg/ Sodium (Chloride) 250 mls @ 125 mls/hr IV Q24H [facility] Melatonin (Melatonin 3 Mg Tablet) 6 mg PO BEDTIME [facility] Ondansetron HCl (Ondansetron Hcl 4 Mg/2 Ml Vial) 4 mg IVPUSH Q8H PRN PRN Reason: Nausea and Vomiting Senna/Docusate Sodium (Sennosides/Docusate Sodium Tablet) 1 tab PO DAILY [facility] Last Admin: 07/20/21 09:36 Dose: Not Given Documented by: Sodium Chloride (0.9 % Sodium Chloride Flush 3 Ml Syringe) 3 ml IVFLUSH QSHIFT [facility] Last Admin: 07/20/21 08:05 Dose: 3 ml Documented by: Tamsulosin HCl (Tamsulosin Hcl 0.4 Mg Capsule) 0.8 mg PO BEDTIME [facility] Home Medications Medication Instructions Recorded Confirmed Last Taken Type aspirin 81 mg chewable tablet 81 mg PO DAILY 05/28/21 07/20/21 07/19/21 17:00 History divalproex 125 mg capsule,delayed 375 mg PO TID 05/28/21 07/20/21 07/19/21 17:00 History release sprinkle gabapentin 300 mg capsule 300 mg PO TID 05/28/21 07/20/21 07/19/21 17:00 History melatonin 3 mg tablet 6 mg PO BEDTIME 05/28/21 07/20/21 07/18/21 21:00 History olanzapine 5 mg disintegrating 5 mg PO DAILY 05/28/21 07/20/21 07/18/21 09:00 History tablet sennosides 8.6 mg-docusate sodium 1 tab PO BEDTIME 05/28/21 07/20/21 07/18/21 21:00 History 50 mg tablet (Senna-S) tamsulosin 0.4 mg capsule 0.8 mg PO BEDTIME 05/28/21 07/20/21 07/18/21 21:00 History trazodone 50 mg tablet 50 mg PO BEDTIME 05/28/21 07/20/21 07/18/21 21:00 History finasteride 5 mg tablet 1 tab PO DAILY 07/20/21 07/20/21 07/18/21 21:00 History Physical Exam Vital Signs: Last Vital Signs Temp 98.4 F 07/20/21 07:17 Pulse 85 07/20/21 07:17 Resp 19 07/20/21 07:17 BP 118/65 07/20/21 07:17 Pulse Ox 96 07/20/21 07:17 Oxygen Flow Rate 4 07/19/21 22:57 BMI result Body Mass Index 23.8 Const Other: somnolent, responds to painful stimuli but is not waking up to answer any questions General: cooperative and no acute distress Eyes General: appearance normal, both eyes and all related structures Pupils: Equal, round and reactive pupils present Resp Effort & Inspection: normal respiratory effort Auscultation: clear to auscultation bilaterally Cardio Rate: regular rate Rhythm: regular rhythm GI Palpation (GI): Soft to palpation Auscultation: normal bowel sounds Skin General skin exam: no rashes or lesions noted Neuro Cranial nerves: Yes Equal, round and reactive pupils present Extrem General: Yes normal to inspection and Yes no pedal edema Results Lab Results Result Diagrams: 07/20/21 00:55 07/20/21 14:56 Lab results: Chemistry 07/20/21 07/20/21 07/20/21 00:55 07:34 10:58 Sodium 159 H 159 H 160 H* Potassium 4.2 3.7 3.9 Carbon Dioxide 22 24 25 BUN 57 H 45 H 44 H Creatinine 1.22 0.77 0.77 Calcium 9.6 D 8.1 L D 8.4 Hematology 07/20/21 00:55 WBC 11.0 H Hgb 17.7 D Plt Count 263 D Urinalysis 07/20/21 02:48 Urine Color YELLOW Urine Appearance HAZY Urine pH 7.0 Ur Specific [place] 1.020 Urine Protein 1+ H Urine Glucose (UA) NEG Urine Ketones NEG Urine Blood 1+ H Urine Nitrite POS H Ur Leukocyte Esterase 2+ H Urine RBC 0-2 Urine WBC 50-75 H Ur Squamous Epith Cells TRACE Assessment and Plan (1) Toxic metabolic encephalopathy: Status: Acute (2) Dehydration: Status: Acute (3) DERICK (acute kidney injury): Status: Acute (4) Sepsis: Status: Acute (5) UTI (urinary tract infection): Status: Acute (6) Acute respiratory failure with hypoxia: Status: Acute 75-year-old male presents to the hospital from assisted with increased lethargy and hypoxia Hypernatremia due to free water deficit Poor PO inake Prerenal Azotemia Suggest IV hydration with hypotonic fluids Check serum sodium q 3- 4 hours to avoid rapid correction RAte of correction 0.5 mmol/L/hr Procedures Date of Service Date of Service: 07/20/21
[2021-07-20 15:28] LABS: Anion Gap 11 (12-20); Blood Urea Nitrogen 38 mg/dL (9-16); Carbon Dioxide 25 mmol/L (22-29); Chloride 120 mmol/L (96-108); Creatinine Clr Calc Pharmacy 83.1; Estimated Glomerular Filt Rate > 60; Glucose Random 281 mg/dL (60-115); Potassium 3.6 mmol/L (3.3-5.1); Sodium 152 mmol/L (135-145)
[2021-07-20] MEDS: Piperacillin Sodium/Tazobactam 3.375 GM in 0.9 % Sodium Chloride 50 ML IV ×2 (16:57→19:44)
--- NOTE | 2021-07-20 18:00 | PC.NURSE ---
Pt. is incoherent, responds to painful stimuli only. completed Admission Risk assessment to the best of my ability.
[2021-07-21] VITALS: BP 126/84; PULSE 72; RESP 20; TEMP 37; O2SAT 97
[2021-07-21] MEDS: Piperacillin Sodium/Tazobactam 3.375 GM in 0.9 % Sodium Chloride 50 ML IV ×4 (03:09→22:08)
[2021-07-21] MEDS: Dextrose 5 % 1,000 ML 100 ML IVCONT ×2 (03:11→17:52)
[2021-07-21 04:00] VITALS: BP 130/76; PULSE 89; RESP 18; TEMP 36.4; O2SAT 94
--- NOTE | 2021-07-21 07:26 | PC.NURSE ---
On first encounter, pt tracks his head when his name was called and giggle softly, no attempt to keep his eyes opens when further spoken to, kept warm and comfortable. Spoke to pt's daughter last night Cami and claimed she is the HCP, She said that pt's baseline is alert ,but doesn't hold a conversation s/t Alzheimer's, mostly on a chair or bedfast, pt is also on liquid diet 1:1 feed in the care home.
[2021-07-21 07:56] VITALS: BP 152/62; PULSE 72; RESP 19; TEMP 36.9; O2SAT 95
--- NOTE | 2021-07-21 10:43 | P.PNIM_ITS ---
Subjective Subjective Date of Service: 07/21/21 Interval History: f/u on encephalopathy, hypernatermia--Sodium is better, remains confused but better Review of Systems confused, no fever Physical Exam Vital Signs: Vital Signs: Last Vital Signs Temp 98.4 F 07/21/21 07:56 Pulse 72 07/21/21 07:56 Resp 19 07/21/21 07:56 BP 152/62 H 07/21/21 07:56 Pulse Ox 95 07/21/21 07:56 Oxygen Flow Rate 4 07/19/21 22:57 BMI result Body Mass Index 23.8 Const: Other: General: Alert but confused Resp: CTA bilateral CVS: S1,S2,RRR GI: +BS, NT, no distention Skin: No rash Neuro: motor grossly intact Psych: appropriate affect Objective Data Active Medications Acetaminophen (Acetaminophen 325 Mg Tablet) 650 mg PO Q6H PRN PRN Reason: Pain, Mild (Pain Scale 1-3) Aspirin (Aspirin 81 Mg Tab.Chew) 81 mg PO DAILY [facility] Last Admin: 07/20/21 09:36 Dose: Not Given Documented by: GUALBERTO Non-Admin Reason: See Note Divalproex Sodium (Divalproex Sodium Sprinkles 125 Mg ) 375 mg PO TID [facility] Last Admin: 07/20/21 23:24 Dose: Not Given Documented by: GRETTA Non-Admin Reason: NPO Enoxaparin Sodium (Enoxaparin Sodium 40 Mg/0.4 Ml Syringe) 40 mg SUBCUT Q24H [facility] Last Admin: 07/20/21 08:37 Dose: Not Given Documented by: GUALBERTO Non-Admin Reason: See Note Comments: gave heparin this am Finasteride (Finasteride 5 Mg Tablet) 5 mg PO DAILY [facility] Last Admin: 07/20/21 09:36 Dose: Not Given Documented by: GUALBERTO Non-Admin Reason: See Note Heparin Sodium (Porcine) (Heparin Sodium,Porcine 5,000 Unit/Ml Vial) 5,000 unit SUBCUT Q12H [facility] Last Admin: 07/20/21 19:44 Dose: 5,000 unit Documented by: GRETTA Azithromycin 500 mg/ Sodium (Chloride) 250 mls @ 125 mls/hr IV Q24H [facility] Last Infusion: 07/20/21 09:16 Dose: 0 mls/hr Documented by: GUALBERTO Dextrose (D5w) 1,000 mls @ 100 mls/hr IVCONT .Q10H [facility] Last Admin: 07/21/21 03:11 Dose: 100 mls/hr Documented by: GRETTA Azithromycin 500 mg/ Sodium (Chloride) 250 mls @ 125 mls/hr IV Q24H [facility] Piperacillin Sod/Tazobactam (Sod 3.375 gm/ Sodium Chloride) 50 mls @ 100 mls/hr IV Q6H [facility] Last Infusion: 07/21/21 03:45 Dose: 0 mls/hr Documented by: GRETTA Melatonin (Melatonin 3 Mg Tablet) 6 mg PO BEDTIME [facility] Ondansetron HCl (Ondansetron Hcl 4 Mg/2 Ml Vial) 4 mg IVPUSH Q8H PRN PRN Reason: Nausea and Vomiting Senna/Docusate Sodium (Sennosides/Docusate Sodium Tablet) 1 tab PO DAILY [facility] Last Admin: 07/20/21 09:36 Dose: Not Given Documented by: GUALBERTO Non-Admin Reason: See Note Sodium Chloride (0.9 % Sodium Chloride Flush 3 Ml Syringe) 3 ml IVFLUSH QSHIFT [facility] Last Admin: 07/20/21 19:45 Dose: 3 ml Documented by: GRETTA Tamsulosin HCl (Tamsulosin Hcl 0.4 Mg Capsule) 0.8 mg PO BEDTIME [facility] Last Admin: 07/20/21 23:24 Dose: Not Given Documented by: GRETTA Non-Admin Reason: NPO Labs CBC & Chem 7: 07/20/21 00:55 07/20/21 14:56 Labs: Laboratory Results - last 24 hr 07/20/21 07/20/21 07/20/21 10:58 10:58 14:56 Anion Gap 11 L 11 L Estim Creat Clear Calc 89.6 83.1 Estimated GFR > 60 > 60 Random Glucose 117 H 281 H D Lactic Acid F/U @ 4Hr 3.0 H* Calcium 8.4 8.0 L Microbiology Microbiology Results: Microbiology 07/20/21 01:11 Blood Culture - Preliminary Blood - Venous No growth after 24 hours. 07/20/21 00:55 Blood Culture - Preliminary Blood - Venous No growth after 24 hours. Assessment and Plan (1) Acute hypernatremia: Status: Acute Assessment and Plan: 75M with AMS metabolic encephalopathy due to hypernatremia, improving, follow sodium clsosely Increase D5 e faecalis bacteremia unclear source, no sepsis ID appreciated, likely contaminant, repeat negative, no abx epilepsy depakote dysphagia upgraded to pureed with thin liquids dementia with behaviour abnormalitis zyprexa dvt prophylaxis - changed to lovenox Quality Stroke Does the patient have a stroke diagnosis?: No VTE Prior VTE?: No VTE Risk Level:: Medical - moderate - high VTE Device Contraindication: Treatment Not Indicated VTE Drug Contraindication: N/A - Med Ordered
[2021-07-21 12:00] VITALS: BP 127/58; PULSE 70; RESP 16; TEMP 36.6; O2SAT 100
--- NOTE | 2021-07-21 12:58 | MHC.CM.PN ---
IMM 07/21/21, EMR REVIEWED, PT ADMITTED W/SEPSIS, HYPONATREMIA, UTI, PNA, CM CONTACTED PTS DTR/HCP SHANNON AT 12:45PM [phone] WHO REPORTS PT ONLY REPOSNDS TO NAME BUT CANNOT HOLD A CONVERSATION, PT DOES STILL RECOGNIZE FAMILY MEMBERS, PT IS W/C BOUND AND HAS NOT BEEN ABLE TO WALK SINCE AFTER HE LEFT ASSISTED LIVING, PER DTR PT HAD BEEN RECEIVING A PUREED DIET AND NOW THEY PRIMARILY SPOON FEED HIM LIQUIDS D/T ASPIRATION RISK, NSG IS NOW AWARE, DTR WOULD LIKE PT TO RETURN TO [facility] UPON D./C. DCPLAN: RETURN TO [facility] W/BLS TRANSPORT
[2021-07-21] MEDS: Azithromycin 500 MG in 0.9 % Sodium Chloride 250 ML 125 MG IV (13:03)
[2021-07-21 15:11] VITALS: BP 90/62; PULSE 67; RESP 19; TEMP 36.6; O2SAT 100
[2021-07-21] MEDS: Enoxaparin Sodium 40 MG/0.4 ML SYRINGE SUBCUT (15:40)
[2021-07-21 15:49] LABS: Anion Gap 12 (12-20); Blood Urea Nitrogen 29 mg/dL (9-16); Calcium 8.2 mg/dL (8.4-10.2); Carbon Dioxide 22 mmol/L (22-29); Chloride 120 mmol/L (96-108); Creatinine Clr Calc Pharmacy 106.1; Estimated Glomerular Filt Rate > 60; Glucose Random 84 mg/dL (60-115); Potassium 3.1 mmol/L (3.3-5.1); Sodium 151 mmol/L (135-145)
--- NOTE | 2021-07-21 17:16 | P.PNNP_ITS ---
Subjective Subjective Date of Service: 08/08/21 Interval history: f/u on encephalopathy, hypernatermia--Sodium is better, remains confused but better Physical Exam Verdana 4l Vital Signs: Verdana 4d Verdana 4d Vital Signs: Verdana 4d Verdana 4Bd Last Vital Signs Verdana 4d Planning Specialist New 4d Planning Specialist New 4d Temp 97.8 F 07/21/21 15:11 Planning Specialist New 4d Pulse 67 07/21/21 15:11 Planning Specialist New 4d Resp 19 07/21/21 15:11 BP 90/62 07/21/21 15:11 Pulse Ox 100 07/21/21 15:11 Oxygen Flow Rate 4 07/19/21 22:57 BMI result Body Mass Index 23.8 Const: Other: somnolent, responds to painful stimuli but is not waking up to answer any questions Eyes: General: appearance normal, both eyes and all related structures Pupils: Equal, round and reactive pupils present Resp: Effort & Inspection: normal respiratory effort Auscultation: clear to auscultation bilaterally Cardio: Rate: regular rate Rhythm: regular rhythm GI: Palpation (GI): Soft to palpation Auscultation: normal bowel sounds Skin: General skin exam: no rashes or lesions noted Neuro: Cranial nerves: Yes Equal, round and reactive pupils present Extrem: General: Yes normal to inspection and Yes no pedal edema Objective Data Labs CBC & Chem 7: 07/20/21 00:55 07/23/21 18:03 Labs: Laboratory Results - last 24 hr 07/21/21 15:21 Sodium 151 H Potassium 3.1 L Chloride 120 H Carbon Dioxide 22 Anion Gap 12 BUN 29 H Creatinine 0.65 Estim Creat Clear Calc 106.1 Estimated GFR > 60 Random Glucose 84 D Calcium 8.2 L Microbiology Microbiology Results: Microbiology 07/20/21 Unknown Urine Catheterized - Straight Catheter Urine Culture - Preliminary Gram negative [place] 07/20/21 01:11 Blood - Venous Blood Culture - Preliminary No growth after 24 hours. 07/20/21 00:55 Blood - Venous Blood Culture - Preliminary No growth after 24 hours. Procedures Date of Service Date of Service: 07/21/21 Assessment & Plan Assessment and plan (1) Toxic metabolic encephalopathy: Status: Resolved (2) Dehydration: Status: Resolved (3) DERICK (acute kidney injury): Status: Resolved (4) Sepsis: Status: Resolved (5) UTI (urinary tract infection): Status: Resolved (6) Acute respiratory failure with hypoxia: Status: Resolved Plan 75-year-old male [facility] with increased lethargy and hypoxia Hypernatremia due to free water deficit Poor PO inake Prerenal Azotemia Suggest IV hydration with hypotonic fluids Check serum sodium q 3- 4 hours to avoid rapid correction RAte of correction 0.5 mmol/L/hr Time Spent With Patient Time: Total time spent is greater than 50% in coordination of care (as documented) at patient's floor/unit and/or counseling patient: Progress Note: Quality Stroke Does the patient have a stroke diagnosis?: No
[2021-07-21] MEDS: 0.9 % Sodium Chloride Flush 3 ML SYRINGE IVFLUSH (17:51)
[2021-07-21 23:47] VITALS: BP 136/75; PULSE 55; RESP 18; TEMP 36.1; O2SAT 100
[2021-07-22 03:15] VITALS: BP 160/70; PULSE 68; RESP 18; TEMP 36; O2SAT 94
[2021-07-22] MEDS: Piperacillin Sodium/Tazobactam 3.375 GM in 0.9 % Sodium Chloride 50 ML IV ×4 (03:25→21:36)
[2021-07-22] MEDS: Dextrose 5 % 1,000 ML 150 ML IVCONT ×3 (04:01→21:35)
[2021-07-22 05:35] LABS: Anion Gap 9 (12-20); Blood Urea Nitrogen 23 mg/dL (9-16); Calcium 8.2 mg/dL (8.4-10.2); Carbon Dioxide 25 mmol/L (22-29); Chloride 118 mmol/L (96-108); Creatinine Clr Calc Pharmacy 104.5; Estimated Glomerular Filt Rate > 60; Glucose Random 96 mg/dL (60-115); Potassium 3.4 mmol/L (3.3-5.1); Sodium 149 mmol/L (135-145)
[2021-07-22 07:45] VITALS: BP 99/66; PULSE 68; RESP 20; TEMP 36.5; O2SAT 98
--- NOTE | 2021-07-22 09:55 | MHC.CM.PN ---
REFERRAL PLACED TO [facility], WHERE PATIENT IS FROM. CASE MANAGEMENT TO CONTINUE TO FOLLOW AND UPDATE FOR HIS RETURN
--- NOTE | 2021-07-22 10:10 | HO.PM.IMPN ---
Subjective Subjective Date of Service: 07/22/21 Interval History: f/u on encephalopathy, hypernatermia--Sodium is better, remains confused yet seemingly better Physical Exam Vital Signs: Vital Signs: Last Vital Signs Temp 97.7 F 07/22/21 07:45 Pulse 68 07/22/21 07:45 Resp 20 07/22/21 07:45 BP 99/66 07/22/21 07:45 Pulse Ox 98 07/22/21 07:45 Oxygen Flow Rate 4 07/19/21 22:57 BMI result Body Mass Index 23.8 Const: Other: General: Alert but confused Resp: CTA bilateral CVS: S1,S2,RRR GI: +BS, NT, no distention Skin: No rash Neuro: motor grossly intact Psych: appropriate affect Objective Data Active Medications Acetaminophen (Acetaminophen 325 Mg Tablet) 650 mg PO Q6H PRN PRN Reason: Pain, Mild (Pain Scale 1-3) Aspirin (Aspirin 81 Mg Tab.Chew) 81 mg PO DAILY [facility] Last Admin: 07/22/21 10:07 Dose: Not Given Documented by: MYRA Non-Admin Reason: NPO Divalproex Sodium (Divalproex Sodium Sprinkles 125 Mg ) 375 mg PO TID [facility] Last Admin: 07/22/21 10:07 Dose: Not Given Documented by: MYRA Non-Admin Reason: NPO Enoxaparin Sodium (Enoxaparin Sodium 40 Mg/0.4 Ml Syringe) 40 mg SUBCUT Q24H [facility] Last Admin: 07/21/21 15:40 Dose: 40 mg Documented by: GEE Finasteride (Finasteride 5 Mg Tablet) 5 mg PO DAILY [facility] Last Admin: 07/22/21 10:08 Dose: Not Given Documented by: MYRA Non-Admin Reason: NPO Dextrose (D5w) 1,000 mls @ 200 mls/hr IVCONT .Q5H [facility] Last Admin: 07/22/21 05:46 Dose: Not Given Documented by: TAI Non-Admin Reason: IV Running Piperacillin Sod/Tazobactam (Sod 3.375 gm/ Sodium Chloride) 50 mls @ 100 mls/hr IV Q6H [facility] Last Infusion: 07/22/21 04:00 Dose: 0 mls/hr Documented by: TAI Azithromycin 500 mg/ Sodium (Chloride) 250 mls @ 125 mls/hr IV Q24H [facility] Last Infusion: 07/21/21 17:59 Dose: 0 mls/hr Documented by: PEDRO Melatonin (Melatonin 3 Mg Tablet) 6 mg PO BEDTIME [facility] Last Admin: 07/21/21 22:04 Dose: Not Given Documented by: PEDRO Non-Admin Reason: NPO Ondansetron HCl (Ondansetron Hcl 4 Mg/2 Ml Vial) 4 mg IVPUSH Q8H PRN PRN Reason: Nausea and Vomiting Senna/Docusate Sodium (Sennosides/Docusate Sodium Tablet) 1 tab PO DAILY [facility] Last Admin: 07/22/21 10:08 Dose: Not Given Documented by: MYRA Non-Admin Reason: NPO Sodium Chloride (0.9 % Sodium Chloride Flush 3 Ml Syringe) 3 ml IVFLUSH QSHIFT [facility] Last Admin: 07/22/21 10:07 Dose: Not Given Documented by: MYRA Non-Admin Reason: IV Running Tamsulosin HCl (Tamsulosin Hcl 0.4 Mg Capsule) 0.8 mg PO BEDTIME [facility] Last Admin: 07/21/21 22:04 Dose: Not Given Documented by: PEDRO Non-Admin Reason: NPO Labs CBC & Chem 7: 07/20/21 00:55 07/22/21 03:56 Labs: Laboratory Results - last 24 hr 07/21/21 07/22/21 15:21 03:56 Anion Gap 12 9 L Estim Creat Clear Calc 106.1 104.5 Estimated GFR > 60 > 60 Random Glucose 84 D 96 Calcium 8.2 L 8.2 L Microbiology Microbiology Results: Microbiology 07/20/21 Unknown Urine Culture - Final Urine Catheterized - Straight Catheter Proteus mirabilis 07/20/21 01:11 Blood Culture - Preliminary Blood - Venous No growth after 48 hours. 07/20/21 00:55 Blood Culture - Preliminary Blood - Venous No growth after 48 hours. Assessment and Plan (1) Acute hypernatremia: Status: Acute Assessment and Plan: 75M with AMS metabolic encephalopathy due to hypernatremia, improving, follow sodium clsosely Sodium has come down, recheck sodium this morning. Nephrolo following e faecalis bacteremia unclear source, no sepsis ID appreciated, likely contaminant, repeat negative, no abx epilepsy depakote dysphagia purre + thin liquid dementia with behaviour abnormalitis zyprexa dvt prophylaxis - lovenox Quality Stroke Does the patient have a stroke diagnosis?: No VTE Prior VTE?: No VTE Risk Level:: Medical - moderate - high VTE Device Contraindication: Treatment Not Indicated VTE Drug Contraindication: N/A - Med Ordered
[2021-07-22] MEDS: Enoxaparin Sodium 40 MG/0.4 ML SYRINGE SUBCUT (11:13)
[2021-07-22 12:00] VITALS: BP 139/63; PULSE 62; RESP 18; TEMP 36.2; O2SAT 98
[2021-07-22 12:28] LABS: Anion Gap 9 (12-20); Blood Urea Nitrogen 17 mg/dL (9-16); Calcium 8.4 mg/dL (8.4-10.2); Carbon Dioxide 26 mmol/L (22-29); Chloride 114 mmol/L (96-108); Creatinine Clr Calc Pharmacy 107.8; Estimated Glomerular Filt Rate > 60; Glucose Random 100 mg/dL (60-115); Potassium 3.6 mmol/L (3.3-5.1); Sodium 145 mmol/L (135-145)
[2021-07-22] MEDS: Azithromycin 500 MG in 0.9 % Sodium Chloride 250 ML 125 MG IV (14:23)
[2021-07-22 16:00] VITALS: BP 141/60; PULSE 107; RESP 18; TEMP 36.1; O2SAT 96
--- NOTE | 2021-07-22 17:11 | MHC.CLN ---
NUTRITION CONSULT FOR PRESSURE INJURY, DECREASE INTAKE. DIET=REGULAR, PUREE WITH NECTAR THICK LIQUIDS. ADDING ENSURE TID TO PROVIDE ADDITIONAL 1050 KCAL, 39 GRAMS PROTEIN.
--- NOTE | 2021-07-22 17:13 | MHC.SL.SWA ---
Speech Pathologist Impression: Risk of Aspiration Risk of Aspiration Due to: Reduced Cognition Dysphasia Diet Status: Upgrade Liquid Consistency and Strategies for Safe Swallow: Liquid Intake Recommendation: Blades Thick Liquid Intake Strategies: Liquids by Teaspoon Only Solid Food Consistency: Dietary Recommendations: Pureed (NDD1) Additional Modifications to Solid Foods: Assess Pt for level of alertness, engagement in eating. Do not offer food/liquid if lethargic. Oral Medication Intake: Crushed with Puree Compensatory Strategies and Precautions to be Taken for Safe Swallow: Sitting Upright (90 deg) No Straw Liquids from Spoon Alternate Liquids/Solids Oral Check Supervision While Eating and Drinking for Safe Swallow: Total Supervision (1:1) Foods to Avoid: Swallowing Recommended Treatments: Compens. Strategy Educat. Recommendation for Speech: Inpatient Speech Therapy Comment: Pt presents w/ risk of aspiration primarily due to level of alertness, engagement, awareness during presentations of food/liquid today. Pt has mild delay initiating swallow on puree and thin liquid, but no clinical s/s aspiration on any consistency. Recommend start diet that is reportedly Pt's baseline at [facility]: PUREE (NDD1) w/ NECTAR THICK liquids (precautionary), and Pills CRUSHED IN PUREE. Pt currently NPO, Diet consistency recommendations sent by secure text to MD, Cigar Head Perforator, Dietary and discussed directly w/Nursing. PRECAST WORKER will follow for toleration of diet, re-assess swallow, upgrade as needed, while PT is at [facility]. Frequency/Duration: M-F Date Range for Service Req: Timeline to reassess: Sheet Metal Worker Apprentice Clinican/Clinical Fellow: No Supervisory Statement: I have reviewed and agree with the student/clinical fellow's documentation: N/A Speech Language Pathologist: Selena Chan M.A., CCC-PRECAST WORKER
[2021-07-22 17:15] VITALS: BMI 23.8
--- NOTE | 2021-07-22 18:46 | P.PNNP_ITS ---
Subjective Subjective Date of Service: 08/08/21 Interval history: Events noted Physical Exam Verdana 4l Vital Signs: Verdana 4d Verdana 4d Vital Signs: Verdana 4d Verdana 4Bd Last Vital Signs Verdana 4d Nitrate Operator New 4d Nitrate Operator New 4d Temp 96.9 F 07/22/21 16:00 Nitrate Operator New 4d Pulse 107 H 07/22/21 16:00 Nitrate Operator New 4d Resp 18 07/22/21 16:00 BP 141/60 H 07/22/21 16:00 Pulse Ox 96 07/22/21 16:00 Oxygen Flow Rate 4 07/19/21 22:57 BMI result Body Mass Index 23.8 Const: Other: somnolent, responds to painful stimuli but is not waking up to answer any questions General: cooperative and no acute distress Eyes: General: appearance normal, both eyes and all related structures Pupils: Equal, round and reactive pupils present Resp: Effort & Inspection: normal respiratory effort Auscultation: clear to auscultation bilaterally Cardio: Rate: regular rate Rhythm: regular rhythm GI: Palpation (GI): Soft to palpation Auscultation: normal bowel sounds Skin: General skin exam: no rashes or lesions noted Neuro: Cranial nerves: Yes Equal, round and reactive pupils present Extrem: General: Yes normal to inspection and Yes no pedal edema Objective Data Labs CBC & Chem 7: 07/20/21 00:55 07/23/21 18:03 Labs: Laboratory Results - last 24 hr 07/22/21 07/22/21 03:56 11:07 Sodium 149 H 145 Potassium 3.4 3.6 Chloride 118 H 114 H Carbon Dioxide 25 26 Anion Gap 9 L 9 L BUN 23 H 17 H Creatinine 0.66 0.64 Estim Creat Clear Calc 104.5 107.8 Estimated GFR > 60 > 60 Random Glucose 96 100 Calcium 8.2 L 8.4 Microbiology Microbiology Results: Microbiology 07/20/21 Unknown Urine Catheterized - Straight Catheter Urine Culture - Final Proteus mirabilis 07/20/21 01:11 Blood - Venous Blood Culture - Preliminary No growth after 48 hours. 07/20/21 00:55 Blood - Venous Blood Culture - Preliminary No growth after 48 hours. Procedures Date of Service Date of Service: 08/22/21 Assessment & Plan Assessment and plan (1) Toxic metabolic encephalopathy: Status: Resolved (2) Dehydration: Status: Resolved (3) DERICK (acute kidney injury): Status: Resolved (4) Sepsis: Status: Resolved (5) UTI (urinary tract infection): Status: Resolved (6) Acute respiratory failure with hypoxia: Status: Resolved Plan 75-year-old male presents to the hospital from [facility] with increased lethargy and hypoxia Hypernatremia due to free water deficit Poor PO inake Prerenal Azotemia - resolving Suggest IV hydration with hypotonic fluids Can switch to 1/2NS Check serum sodium q 24 hours to avoid rapid correction RAte of correction acceptable Time Spent With Patient Time: Total time spent is greater than 50% in coordination of care (as documented) at patient's floor/unit and/or counseling patient: Time with patient: 15 - 24 minutes Progress Note: Quality Stroke Does the patient have a stroke diagnosis?: No
[2021-07-22] MEDS: Melatonin 3 MG TABLET 6 MG PO (21:37)
[2021-07-22] MEDS: Divalproex Sodium Sprinkles 125 MG CAP.DR.SPR 375 MG PO (21:37)
[2021-07-22] MEDS: Tamsulosin HCL 0.4 MG CAPSULE 0.8 MG PO (21:38)
[2021-07-22 23:40] VITALS: BP 101/59; PULSE 51; RESP 17; TEMP 36; O2SAT 96
[2021-07-23] MEDS: Piperacillin Sodium/Tazobactam 3.375 GM in 0.9 % Sodium Chloride 50 ML IV ×3 (03:46→15:08)
[2021-07-23 03:48] VITALS: BP 107/57; PULSE 57; RESP 18; TEMP 36.1; O2SAT 99
[2021-07-23 05:35] LABS: Anion Gap 12 (12-20); Blood Urea Nitrogen 9 mg/dL (9-16); Calcium 8.3 mg/dL (8.4-10.2); Carbon Dioxide 24 mmol/L (22-29); Chloride 113 mmol/L (96-108); Creatinine Clr Calc Pharmacy 101.5; Estimated Glomerular Filt Rate > 60; Glucose Random 99 mg/dL (60-115); Potassium 3.8 mmol/L (3.3-5.1); Sodium 145 mmol/L (135-145)
[2021-07-23] MEDS: Dextrose 5 % 1,000 ML 150 ML IVCONT (05:42)
[2021-07-23 07:45] VITALS: BP 131/73; PULSE 76; RESP 17; TEMP 36.8; O2SAT 96
[2021-07-23] MEDS: Enoxaparin Sodium 40 MG/0.4 ML SYRINGE SUBCUT (08:19)
[2021-07-23] MEDS: Aspirin 81 MG TAB.CHEW PO (08:21)
[2021-07-23] MEDS: Divalproex Sodium Sprinkles 125 MG CAP.DR.SPR 375 MG PO ×2 (08:21→15:08)
[2021-07-23] MEDS: Sennosides/Docusate Sodium TABLET 1 TAB PO (08:21)
[2021-07-23] MEDS: Finasteride 5 MG TABLET PO (08:21)
--- NOTE | 2021-07-23 09:30 | PC.NURSE ---
Skin/wound assessment completed. Patient has a small stage 2 to left buttocks with peeling skin, pink wound bed. Scattered bruising on arms. No other skin issues noted at this time.
[2021-07-23] MEDS: Azithromycin 500 MG in 0.9 % Sodium Chloride 250 ML 125 MG IV (11:13)
[2021-07-23 11:41] VITALS: BP 155/70; PULSE 72; RESP 19; TEMP 36.1; O2SAT 96
--- NOTE | 2021-07-23 12:35 | P.DS_ITS ---
DS: Providers Provider Date of Service: 07/23/21 Date of admission: 07/20/21 04:41 Primary care physician: Jocelin Randall MD Consults: 07/20/21 08:29 Consult to Nephrology Routine Consulting Provider: Paulo Sweeney Reason for consultation: hypernatremia for eval and rec DS: Diagnosis Discharge Diagnosis (1) Toxic metabolic encephalopathy: Status: Resolved (2) Dehydration: Status: Resolved (3) DERICK (acute kidney injury): Status: Resolved (4) Sepsis: Status: Resolved (5) UTI (urinary tract infection): Status: Resolved (6) Acute respiratory failure with hypoxia: Status: Resolved DS: Summary Hospital Course Hospital Course: Chief Complaint:? lethargy and hypoxia ?this is a 75-year-old male with past medical history of COPD, BPH,, dementia, w ho was [facility] for increased [facility]argy as well as hypoxia found to have O2 of 86%.? Patient is very lethargic, somnolent,? responds to painful stimuli but unable to give any much history. On arrival to the ED patient found to have a temp of 102.6?, heart rate of 110, respiratory rate of 30, blood pressure of 124/66, currently on 4 L of nasal cannula satting 90%.? Labs are significant for leukocytosis of 11 point no, pH of 7.45, sodium of 159, chloride of 123, BUN of 57, creatinine of 1.22 with a baseline around 0.6, lactic acid of 3.6, UA positive for leukocyte Estrace, nitrites, as well as WBC.? COVID-19 negative. Chest x-ray shows similar appearing left medial basilar streaky opacity which could represent infiltrates or atelectasis. Hospital course: Acute metabolic encephalopathy likely multifactorial from UTI, dehdration, Hypernatremia.. Seems to be back to his baseline demented state with correction of underlying issues. Hypernatremia--likely from dehhdration and not drinking enough, sodium was up to 160 on presentation and is back down to 145 with hydration including IV water hydration, he should be assisted in drinking water due to his coginitive status or he risk going back into state of dehydratio. E. Faecalis, coga negative bacteremia--no obivious source, 1/ of multiple draws, evaluated by ID and deemed to be likely contaminations, repeat cultures have been negative. UTI with urine culture growing proteus Mirabilis--He is on Zosyn, and will change to oral Ceftin Epilepsy--to continue depakote Dysphagia purre + thin liquid dementia with behaviour abnormalitis zyprexa HypOkalemia--repalce with K Time Spent with Patient Time attestation: Total time spent providing and/or coordinating discharge services: Discharge coordination time: Greater than 30 minutes Quality: Stroke Does the patient have a stroke diagnosis?: No Physical Exam Verdana 4l Vital Signs: Verdana 4d Verdana 4d Vital Signs: Verdana 4d Verdana 4Bd Last Vital Signs Verdana 4d Sales Research Analyst New 4d Sales Research Analyst New 4d Temp 97.0 F 07/23/21 11:41 Sales Research Analyst New 4d Pulse 72 07/23/21 11:41 Sales Research Analyst New 4d Resp 19 07/23/21 11:41 BP 155/70 H 07/23/21 11:41 Pulse Ox 96 07/23/21 11:41 Oxygen Flow Rate 4 07/19/21 22:57 BMI result Body Mass Index 23.8 DS: Data Data Completed and Pending Labs on day of discharge: Laboratory Results - last 24 hr 07/23/21 04:44 Sodium 145 Potassium 3.8 Chloride 113 H Carbon Dioxide 24 Anion Gap 12 BUN 9 Creatinine 0.68 Estim Creat Clear Calc 101.5 Estimated GFR > 60 Random Glucose 99 Calcium 8.3 L Preliminary micro results at discharge 07/20/21 01:11 Blood Culture - Preliminary Blood - Venous No growth after 48 hours. 07/20/21 00:55 Blood Culture - Preliminary Blood - Venous No growth after 48 hours. Discharge Plan Discharge Anticipated Discharge Date/Time: 07/23/21 12:20 Patient Disposition: Xfer SNF Discharge Diagnosis: Sepsis, UIT, dehydration, hypernatremia, respiratory faiure resolved. Referrals: [facility] [Outside] - 1 Week Jocelin Randall MD [Primary Care Provider] - 1 Week Discharge Medications: New cefuroxime axetil 500 mg tablet 500 mg PO BID 7 Days Qty: 14 0RF Continued trazodone 50 mg Tablet 50 mg PO BEDTIME 0RF sennosides-docusate sodium [Senna-S] 8.6-50 mg Tablet 1 tab PO BEDTIME 0RF melatonin 3 mg Tablet 6 mg PO BEDTIME 0RF tamsulosin 0.4 mg Capsule 0.8 mg PO BEDTIME 0RF gabapentin 300 mg Capsule 300 mg PO TID 0RF aspirin 81 mg Tablet,Chewable 81 mg PO DAILY 0RF divalproex 125 mg Capsule, Delayed Rel Sprinkle 375 mg PO TID 0RF olanzapine 5 mg Tablet,Disintegrating 5 mg PO DAILY 0RF finasteride 5 mg tablet 1 tab PO DAILY 0RF Discharge Orders: Discharge Order (Routine); Ordered 07/23/21 Ordered By: Andrey Yadav Diet: advance to usual diet Activity on Discharge: As tolerated Stand Alone Forms: Patient Portal Discharge page Care Plan Goals: Full recovery from sespsis, pneumonia, UTI, dehydration Health Concerns: Pneumonia, UTI, dehhdration Plan of Treatment: To complete course of Ceftin for pneumonia, UTI, encourage to drink plenty of water to avoid dehydration... He should be helped with this. check electrolytes tomorrow Assessment: As above Discharge Date/Time: 07/23/21 19:26
[2021-07-23 12:42] LABS: Anion Gap 11 (12-20); Blood Urea Nitrogen 8 mg/dL (9-16); Calcium 8.3 mg/dL (8.4-10.2); Carbon Dioxide 23 mmol/L (22-29); Chloride 111 mmol/L (96-108); Estimated Glomerular Filt Rate > 60; Glucose Random 87 mg/dL (60-115); Potassium 2.9 mmol/L (3.3-5.1); Sodium 145 mmol/L (135-145)
--- NOTE | 2021-07-23 12:58 | HO.PM.IMPN ---
Subjective Subjective Date of Service: 07/23/21 Interval History: f/u on dehydration, uti, encephalopathy..Overall doing better and seems to be at baseline Review of Systems confused, no fever Physical Exam Vital Signs: Vital Signs: Last Vital Signs Temp 97.0 F 07/23/21 11:41 Pulse 72 07/23/21 11:41 Resp 19 07/23/21 11:41 BP 155/70 H 07/23/21 11:41 Pulse Ox 96 07/23/21 11:41 Oxygen Flow Rate 4 07/19/21 22:57 BMI result Body Mass Index 23.8 Const: Other: General: confused. Resp: CTA bilateral CVS: S1,S2,RRR GI: +BS, NT, no distention Skin: No rash Neuro: motor grossly intact Psych: appropriate affect Objective Data Active Medications Acetaminophen (Acetaminophen 325 Mg Tablet) 650 mg PO Q6H PRN PRN Reason: Pain, Mild (Pain Scale 1-3) Aspirin (Aspirin 81 Mg Tab.Chew) 81 mg PO DAILY [facility] Last Admin: 07/23/21 08:21 Dose: 81 mg Documented by: JAMES Divalproex Sodium (Divalproex Sodium Sprinkles 125 Mg ) 375 mg PO TID [facility] Last Admin: 07/23/21 08:21 Dose: 375 mg Documented by: JAMES Enoxaparin Sodium (Enoxaparin Sodium 40 Mg/0.4 Ml Syringe) 40 mg SUBCUT Q24H [facility] Last Admin: 07/23/21 08:19 Dose: 40 mg Documented by: JAMES Finasteride (Finasteride 5 Mg Tablet) 5 mg PO DAILY [facility] Last Admin: 07/23/21 08:21 Dose: 5 mg Documented by: JAMES Piperacillin Sod/Tazobactam (Sod 3.375 gm/ Sodium Chloride) 50 mls @ 100 mls/hr IV Q6H [facility] Last Infusion: 07/23/21 09:06 Dose: 0 mls/hr Documented by: JAMES Azithromycin 500 mg/ Sodium (Chloride) 250 mls @ 125 mls/hr IV Q24H [facility] Last Admin: 07/23/21 11:13 Dose: 125 mls/hr Documented by: JAMES Melatonin (Melatonin 3 Mg Tablet) 6 mg PO BEDTIME [facility] Last Admin: 07/22/21 21:37 Dose: 6 mg Documented by: FIONA Ondansetron HCl (Ondansetron Hcl 4 Mg/2 Ml Vial) 4 mg IVPUSH Q8H PRN PRN Reason: Nausea and Vomiting Senna/Docusate Sodium (Sennosides/Docusate Sodium Tablet) 1 tab PO DAILY [facility] Last Admin: 07/23/21 08:21 Dose: 1 tab Documented by: JAMES Sodium Chloride (0.9 % Sodium Chloride Flush 3 Ml Syringe) 3 ml IVFLUSH QSHIFT [facility] Last Admin: 07/23/21 08:21 Dose: Not Given Documented by: JAMES Non-Admin Reason: IV Running Tamsulosin HCl (Tamsulosin Hcl 0.4 Mg Capsule) 0.8 mg PO BEDTIME [facility] Last Admin: 07/22/21 21:38 Dose: 0.8 mg Documented by: FIONA Labs CBC & Chem 7: 07/20/21 00:55 07/23/21 12:00 Labs: Laboratory Results - last 24 hr 07/20/21 07/20/21 07/20/21 00:55 07:34 10:58 Sodium 159 H 159 H 160 H* Potassium 4.2 3.7 3.9 Anion Gap Estim Creat Clear Calc Estimated GFR Random Glucose Calcium 07/20/21 07/21/21 07/22/21 14:56 15:21 03:56 Sodium 152 H 151 H 149 H Potassium 3.6 3.1 L 3.4 Anion Gap Estim Creat Clear Calc Estimated GFR Random Glucose Calcium 07/22/21 07/23/21 07/23/21 11:07 04:44 12:00 Sodium 145 145 145 Potassium 3.6 3.8 2.9 L D Anion Gap 12 11 L Estim Creat Clear Calc 101.5 103.0 Estimated GFR > 60 > 60 Random Glucose 99 87 Calcium 8.3 L 8.3 L Microbiology Microbiology Results: Microbiology 07/20/21 Unknown Urine Culture - Final Urine Catheterized - Straight Catheter Proteus mirabilis Assessment and Plan (1) UTI (urinary tract infection): Status: Acute (2) Acidosis, lactic: Status: Acute Assessment and Plan: 75/m with Acute metabolic encephalopathy likely multifactorial from UTI, dehdration, Hypernatremia.. Seems to be back to his baseline demented state with correction of underlying issues. Hypernatremia--likely from dehhdration and not drinking enough, sodium was up to 160 on presentation and is back down to 145 with hydration including IV water hydration, he should be assisted in drinking water due to his coginitive status or he risk going back into state of dehydratio. E. Faecalis, coga negative bacteremia--no obivious source, 1/ of multiple draws, evaluated by ID and deemed to be likely contaminations, repeat cultures have been negative. UTI with urine culture growing proteus Mirabilis--He is on Zosyn, and will change to oral Ceftin ?PNA--CXR not convincing of PNA but appropirately treated and initial hypoxia has resolved. Epilepsy--to continue depakote Dysphagia purre + thin liquid dementia with behaviour abnormalitis zyprexa DC later today if potassium is corrected Quality Stroke Does the patient have a stroke diagnosis?: No VTE Prior VTE?: No VTE Risk Level:: Medical - moderate - high VTE Device Contraindication: Treatment Not Indicated VTE Drug Contraindication: N/A - Med Ordered
[2021-07-23] MEDS: Potassium Chloride Packet 20 MEQ PACKET 40 MEQ PO (13:01)
[2021-07-23 13:24] LABS: COVID-19 Test Negative (Negative); IDNOW Serial# 9DD0AD1C
--- NOTE | 2021-07-23 13:55 | MHC.CM.PN ---
Addendum entered by Leeanne Figueroa 07/23/21 15:10: DAUGHTER SHANNON ([phone]) - VOICEMAIL LEFT AT THIS NUMBER, STATING ONLY THAT [facility] PATIENT WILL BE RETURNING TO HIS LTC FACILITY AND IF THERE ARE ANY QUESTIONS, TO CALL THIS SOFTWARE SALES CONSULTANT BACK. CONTACT NUMBER [id number]. Addendum entered by Leeanne Figueroa 07/23/21 15:09: REQUEST TO [facility] FOR 1730 TRANSPORT AGREED UPON WITH FACILITY Original Note: PATIENT TO RETURN TO [facility] VIA [facility]. RN AND UNIT TO BE MADE AWARE OF TIME ONCE AGREED UPON WITH FACILITY
--- NOTE | 2021-07-23 14:13 | P.CDIC_ITS ---
CDI Concurrent Query Documentation Clarification: PHYSICIAN'S DOCUMENTATION REQUEST Date of Query: 07/23/21 1413 Patient Name: Robe Monreal Admit Date: 07/20/21 Dear Doctor, A review of the medical record indicates additional documentation may be needed. Please review below and update the documentation accordingly. Clinical Indicators: Verdana 4Bd Risk Factors/Clinical Indicators/Treatments Verdana 4d On 07/22/21, potassium 3.4 On 07/23/21, potassium 2.9 Treated with Klor-Con 40 meq po once Based on the above, could you clarify in the Progress Notes the appropriate diagnosis, if significant, that supports the above abnormalities and additional evaluation, monitoring, and/or treatment rendered: * Based on the above, could you provide an associated diagnosis that would support the low potassium level requiring additional treatment, evaluation and monitoring * Other (please specify) * Unable to determine Use of terms such as suspected, likely, concern for, or probable (associated with a specific diagnosis that is being evaluated, monitored, or treated as if it exists) are acceptable and can be coded in the inpatient setting, when documented at the time of discharge. Thank you, Thais Tripp RN Extension: [phone] Please use your independent medical judgment in providing your response. THIS QUERY IS PART OF THE PERMANENT MEDICAL RECORD Provider Response: Other Other Diagnosis: Hypokalemia
[2021-07-23 15:41] VITALS: BP 117/65; PULSE 65; RESP 18; TEMP 36.6; O2SAT 99
[2021-07-23 16:00] VITALS: BP 117/65; PULSE 65; RESP 18; TEMP 36.6; O2SAT 99
--- NOTE | 2021-07-23 16:42 | MHC.SLORD ---
Speech Language Pathology Order Status: Attempted to see Pt for TX this pm. Pt was soundly asleep, did not wake to name, sternal rub. Will reattempt tomorrow if pt not D/C'd.
[2021-07-23 18:30] LABS: Potassium 3.2 mmol/L (3.3-5.1)
[2021-07-23] MEDS: Potassium Chloride Packet 20 MEQ PACKET PO (18:48)
== END 2021-07-23 19:26 | disposition skilled nursing facility (03) | DRG 689 ==
LOC: HO.ED 07-20 01:27 → HO.EDOVER 07-20 06:38 → HO.S3 07-20 13:47
PROVIDERS: Student in an Organized Health Care Education/Training Program; Admitting Provider Internal Medicine; Emergency Provider Internal Medicine; PCP Internal Medicine; Visit Provider Internal Medicine
DX: N39.0 Urinary tract infection, site not specified (principal); G92.8 Other toxic encephalopathy; J96.01 Acute respiratory failure with hypoxia; N17.9 Acute kidney failure, unspecified; E87.0 Hyperosmolality and hypernatremia; F03.91 Unspecified dementia, unspecified severity, with behavioral disturbance; R13.10 Dysphagia, unspecified; B96.4 Proteus (mirabilis) (morganii) as the cause of diseases classified elsewhere; G40.909 Epilepsy, unspecified, not intractable, without status epilepticus; E87.6 Hypokalemia; N40.0 Benign prostatic hyperplasia without lower urinary tract symptoms; E86.0 Dehydration; Z20.822 Contact with and (suspected) exposure to COVID-19; Z79.82 Long term (current) use of aspirin; Z79.899 Other long term (current) drug therapy; Z66 Do not resuscitate
CPT/HCPCS: 36415; 71045; 80048; 80053; 81001; 82803; 83605; 83735; 84132; 85025; 87040; 87086; 87088; 87186; 87635; 92610; 93005; 99285; J0456; J0696; J1650; J2543

== ENCOUNTER 2021-09-10 15:15 | Inpatient (IN) | payer MEDICARE, MEDICAID, SELFPAY ==
[2021-09-10] VITALS (13 sets, daily range): BP systolic 94–149; BP diastolic 48–116; PULSE 69–121; RESP 20–28; TEMP 38.3–39.4; O2SAT 91–100; BMI 25.9
--- NOTE | ~2021-09-10 | XR_ITS ---
EXAMINATION: XR CHEST CLINICAL INFORMATION: Change in mental status and hypoxia. Rule out pneumonia. COMPARISON: Previous chest x-ray most recent 07/19/2021 TECHNIQUE: Frontal view of the chest was obtained. FINDINGS: The cardiac and mediastinal contours are normal. There is increasing airspace disease at the left lung base suggestive of pneumonia. The right lung is clear. There is no pleural effusion or pneumothorax. Visualized bony structures are unremarkable. XR/XR chest 1V IMPRESSION: Left base pneumonia.
--- NOTE | ~2021-09-10 | CT_ITS ---
EXAMINATION: CT ANGIOGRAM OF THE CHEST WITH AND WITHOUT CONTRAST (CT PULMONARY ANGIOGRAM FOR PE) CLINICAL INFORMATION: Reason for Exam Severe hypoxia, rule out PE COMPARISON: None TECHNIQUE: Prior to contrast administration, noncontrast localization images were obtained. Subsequently, multidetector volumetric imaging was performed from the thoracic inlet to below the diaphragms following the administration of 58 mL Omnipaque 350 intravenous contrast. No contrast reaction reported Sagittal, coronal, and MIP oblique sagittal reformatted images were obtained on the CT workstation, uploaded to PACS, and reviewed. This CT examination was performed using dose optimization techniques as appropriate, variously including the following: *Automated exposure control *Adjustment of mA and/or kV according to patient size (this includes techniques or standardized protocols for targeted exams where dose is matched to indication/reason for exam; i.e. extremities or head) *Use of iterative reconstruction technique Total exam dose-length product 402 mGy-cm FINDINGS: QUALITY OF STUDY/CONTRAST BOLUS: Satisfactory. There is severe motion artifact, especially at the bases. PULMONARY ARTERIES: No central or large segmental pulmonary emboli. Evaluation of the lung bases is quite difficult because of motion artifact THORACIC AORTA: No aneurysm or dissection. LUNG: Patchy consolidation is noted at the left lung base as well as in the left perihilar region lobe. PLEURA: No pleural effusion or pneumothorax. MEDIASTINUM: Normal heart size. No pericardial effusion. No hilar or mediastinal lymphadenopathy. No evidence of septal bowing or right heart strain. CHEST WALL/AXILLA: No axillary or internal mammary lymphadenopathy. OSSEOUS STRUCTURES: No acute or suspicious osseous abnormality. UPPER ABDOMEN: Layering gallstones are present in the gallbladder. The stomach appears amorphous and is filled with fluid. No reflux of contrast into the hepatic veins to suggest elevated right heart pressures. CT/CT angio chest PE protocol IMPRESSION: 1. Limited exam but no evidence of pulmonary emboli 2. Patchy left lower lobe consolidation as well as left perihilar infiltrate VTE: Negative, but limited
[2021-09-10 16:04] LABS: MANUAL DIFF FLAG NO
[2021-09-10 16:06] LABS: Basophils Percent Auto 0.4 % (0-2); Eosinophils Percent Auto 0.5 % (0-4); Hematocrit 53.6 % (42.0-52.0); Hemoglobin 16.2 g/dl (14.0-18.0); Imm Gran Abs Auto 0.01 X10*3/uL (0.00-0.03); Imm Gran Pct Auto 0.2 % (0.0-0.4); Lymphocytes Absolute Auto 0.9 X10*3/uL (1.2-4.9); Lymphocytes Percent Auto 15.8 % (20-40); Mean Corpuscular HGB Conc 30.2 g/dl (31.0-36.0); Mean Corpuscular Hemoglobin 30.1 pg (27.0-33.0); Mean Corpuscular Volume 99.6 fL (80.0-98.0); Mean Platelet Volume 10.4 fL (9.4-12.4); Monocytes Absolute Auto 0.3 X10*3/uL (0.1-1.2); Monocytes Percent Auto 5.3 % (2-11); Neutrophils Absolute Auto 4.3 x10*3/uL (2.0-8.3); Neutrophils Percent Auto 77.8 % (45-73); Platelet Count 179 X10*3/uL (160-400); Red Blood Count 5.38 X10*6/uL (4.60-5.80); Red Cell Distribution Width 14.5 % (11.0-16.0); White Blood Count 5.5 X10*3/uL (4.8-10.8)
[2021-09-10 16:07] LABS: Glucose, Whole Blood 143 mg/dL (60-115)
[2021-09-10] MEDS: 0.9 % Sodium Chloride 2,052 ML 2052 ML IV ×2 (16:07→18:51)
[2021-09-10] MEDS: Piperacillin Sodium/Tazobactam 4.5 GM in 0.9 % Sodium Chloride 100 ML IV (16:10)
[2021-09-10 16:12] LABS: INTERNATIONAL NORM RATIO 1.3 (0.9-1.1); Prothrombin Time 14.9 SEC (9.9-13.0)
--- NOTE | 2021-09-10 16:13 | PC.NURSE ---
Pt withdraws from painful stimuli. Appears to fall asleep between interventions. st on monitor. tremor noted. dry mm. tenting. cap refill sluggish. core color has improved.
[2021-09-10 16:14] LABS: Partial Thromboplastin Time 39.9 SEC (24.1-38.0)
[2021-09-10 16:27] LABS: Lactic Acid 7.6 mmol/L (0.5-2.0)
[2021-09-10 16:28] LABS: Alanine Aminotransferase 12 U/L (0-40); Albumin Level 3.5 g/dL (3.5-5.0); Alkaline Phosphatase 88 U/L (39-117); Anion Gap 19 (12-20); Aspartate Amino Transferase 19 U/L (5-37); Bilirubin Total 0.8 mg/dL (0.0-1.0); Blood Urea Nitrogen 37 mg/dL (9-16); Calcium 9.4 mg/dL (8.4-10.2); Carbon Dioxide 27 mmol/L (22-29); Chloride 111 mmol/L (96-108); Creatinine Clr Calc Pharmacy 65.9; Estimated Glomerular Filt Rate > 60; Glucose Random 159 mg/dL (60-115); Lipase 14 U/L (8-78); Potassium 4.7 mmol/L (3.3-5.1); Sodium 152 mmol/L (135-145); Total Protein 6.9 g/dL (6.5-8.0)
[2021-09-10 16:41] LABS: Appearance Urine CLOUDY; Color Urine YELLOW; Glucose Urine UA NEG (NEG); Leukocyte Esterase Urine 1+ (NEG); Nitrite Urine NEG (NEG); UACC Culture Trigger YES; Urine Blood 1+ (NEG); Urine Ketones 5 MG/DL (NEG); Urine Protein 1+ MG/DL (NEG-TRACE)
--- NOTE | 2021-09-10 16:41 | ED.AMS ---
HPI - Altered Mental Status General Chief Complaint: Altered Mental Status Stated Complaint: DECLINE FROM SNF PER EMS,DNR ON BOARD Time Seen by Provider: 09/10/21 15:36 Source: EMS Mode of arrival: EMS Limitations: altered mental status History of Present Illness HPI narrative: 76-year-old male who was sent into the emergency department from his nursing facility for low O2 saturation in the 70% range. Patient is currently at [facility]. The patient was hospitalized here from 07/20/2021 until 07/23/2021. At time time he presented with low O2 saturations of 82%, he had encephalopathy and was found to have a urinary tract infection with Proteus mirabilis sensitive to penicillins. He also has a history of bacteremia from Enterococcus faecalis in May of 2021 also sensitive to penicillins. No other history is obtainable from the patient. Related Data Home Medications Medication Instructions Recorded Confirmed aspirin 81 mg chewable tablet 81 mg PO DAILY 05/28/21 09/10/21 divalproex 125 mg capsule,delayed 375 mg PO TID 05/28/21 09/10/21 release sprinkle gabapentin 300 mg capsule 300 mg PO TID 05/28/21 09/10/21 melatonin 3 mg tablet 6 mg PO BEDTIME 05/28/21 09/10/21 sennosides 8.6 mg-docusate sodium 1 tab PO BEDTIME 05/28/21 09/10/21 50 mg tablet (Senna-S) tamsulosin 0.4 mg capsule 0.8 mg PO BEDTIME 05/28/21 09/10/21 trazodone 50 mg tablet 50 mg PO BEDTIME 05/28/21 09/10/21 finasteride 5 mg tablet 1 tab PO DAILY 07/20/21 09/10/21 acyclovir 200 mg capsule 200 mg PO BID 09/10/21 09/10/21 Allergies Allergy/AdvReac Type Severity Reaction Status Date / Time No Known Allergies Allergy Verified 09/10/21 15:29 [No Known Allergies*] Review of Systems Review of Systems: Yes Unobtainable due to mental status (Dementia and change in mental status) COUNTS INCLUDE 234 BEDS AT THE [facility] Past Medical History COUNTS INCLUDE 234 BEDS AT THE [facility] Narrative: Past medical history: Admission 07/20/2021-toxic metabolic encephalopathy, dehydration, acute kidney injury-resolved, sepsis, UTI, acute respiratory failure well hypoxia, Enterococcus faecalis bacteremia, dementia, COPD, BPH. Social history: The patient is currently residing in a nursing facility. Medical History Enterococcal bacteremia Family History Family History Mother Alzheimer's dementia Social History Social History Household Members: Other Housing: Long-Term Do you presently have visiting nurse or other home services: No Unable to assess alcohol history related to: Unable to respond Alcohol intake: unknown Patient Tobacco Use Status: Tobacco use Unknown Use of substances other than those prescribed or required for medical reasons: Unknown Advance Directives: Yes Advance Directives on File: Yes Advance Directives Date on File: 05/29/21 service: No Current occupational status: retired Physical Exam ED Vital Signs: Vital Signs - 24 hr 09/10/21 15:31 09/10/21 16:12 09/10/21 16:27 Temperature 102.0 F H 102.6 F H 102.7 F H Pulse Rate 121 H 119 H 113 H Respiratory Rate 24 H 25 H 28 H Blood Pressure 102/73 149/88 H 143/116 H Pulse Oximetry 97 93 92 09/10/21 16:52 09/10/21 17:14 09/10/21 17:19 Temperature 102.7 F H 102.9 F H Pulse Rate 69 115 H Respiratory Rate 26 H 25 H Blood Pressure 119/90 H 109/69 Pulse Oximetry 100 94 09/10/21 17:55 09/10/21 18:19 09/10/21 18:57 Temperature 102.2 F H 102.4 F H 101.7 F H Pulse Rate 105 H 103 H 112 H Respiratory Rate 26 H 26 H 27 H Blood Pressure 95/50 L 105/61 107/62 Pulse Oximetry 91 L 95 98 BMI result Body Mass Index 25.9 Const Other: Elderly male, somnolent but arousable, does respond to painful stimuli, does not answer verbal questions HENMT Head: Yes normal to inspection, Yes normocephalic and Yes atraumatic Ears: external ears normal General nose exam: Normal external nose present Face and sinus: Yes normal facial exam Mouth: Normal oral and palatal mucosa present Throat: Yes posterior oropharynx normal Eyes Other: Patient's left pupil is 3 mm, responsive to light, right cornea is cloudy, sclera and conjunctiva are normal Neck Neck: Yes normal visual inspection, Yes no lymphadenopathy, Yes trachea midline and Yes supple Chest Chest palpation & inspection: normal inspection of the chest and normal palpation of entire chest wall Resp Effort & Inspection: normal respiratory effort and able to speak in complete sentences Auscultation: clear to auscultation bilaterally Cardio Rate: regular rate Rhythm: regular rhythm Heart sounds: S1 normal heart sound present, S2 normal heart sound present and no murmurs GI Inspection: Yes normal to inspection Palpation (GI): Soft to palpation, nontender and no guarding Auscultation: normal bowel sounds General: Yes no CVA tenderness Back/Spine/Pelvis Back: no CVA tenderness Skin General skin exam: no rashes or lesions noted Neuro Other: Somnolent but arousable to painful stimuli, withdraws his extremities with painful stimulation Extrem General: Yes normal to inspection Psych Other: Somnolent but arousable, responds to painful stimuli Course Course Course Narrative: 76-year-old male sent to the emergency department for evaluation of decreased O2 saturation and decreased responsiveness. On presentation, the patient was somnolent but arousable, he does respond to painful stimuli, he is nonverbal. Patient's pulse was 121, respiratory was 24 temperature was a 102.0 degrees. Patient was ordered to get a septic workup and a 30 cc/kilogram bolus. Patient was also ordered to get Zosyn 4.5 G IV and Tylenol suppository 650 mg per rectum. 175: Laboratory evaluation: Elevated hematocrit 53.6, elevated INR 1.3, elevated sodium 152, elevated chloride 111, elevated BUN 37, elevated glucose 159, elevated lactate 7.6, urinalysis revealed 1+ blood, 1+ leukocyte, microscopic revealed 5-9 RBCs, 50-75 WBCs , COVID-19 was negative. Chest x-ray revealed a left basilar infiltrate. Patient completed his fluid bolus. 1831: I will discuss admission with the covering hospitalist, Dr Ventura and she did accept the patient to the hospital service. The patient's repeat lactic acid was 7.9. I did order a another 2 L normal saline bolus and D5 half NS at 125 cc/hour since the patient does have a high sodium a needs free water. The nurse did document 1 low systolic blood pressure at 83 however the next blood pressure was normal at 95. A focused exam was performed. This time I do not think that the patient needs a pressor. 191: I did discuss the patient's presentation with the covering hospitalist, Dr. Mckoy. After our discussion, and given the patient's severe hypoxia, I did add a BNP and ordered a CT pulmonary angiogram to rule out PE MDM - Altered Mental Status Medical Records Attestation: I reviewed the patient's medical records. Lab Data Attestation: I reviewed the patient's lab results. Result diagrams: 09/10/21 15:57 09/10/21 15:57 Labs: Lab Results 09/10/21 09/10/21 09/10/21 Range/Units 15:27 15:55 15:57 WBC 5.5 (4.8-10.8) X10*3/uL RBC 5.38 (4.60-5.80) X10*6/uL Hgb 16.2 (14.0-18.0) g/dl Hct 53.6 H (42.0-52.0) % MCV 99.6 H (80.0-98.0) fL MCH 30.1 (27.0-33.0) pg MCHC 30.2 L (31.0-36.0) g/dl RDW 14.5 (11.0-16.0) % Plt Count 179 D (160-400) X10*3/uL MPV 10.4 (9.4-12.4) fL Immature Gran % (Auto) 0.2 (0.0-0.4) % Neut % (Auto) 77.8 H (45-73) % Lymph % (Auto) 15.8 L (20-40) % [place] % (Auto) 5.3 (2-11) % Eos % (Auto) 0.5 (0-4) % Baso % (Auto) 0.4 (0-2) % Lymph # (Auto) 0.9 L (1.2-4.9) X10*3/uL [place] # (Auto) 0.3 (0.1-1.2) X10*3/uL Eos # (Auto) 0.0 (0.0-0.4) X10*3/uL Baso # (Auto) 0.0 (0.0-0.2) X10*3/uL Abs Immat Gran (auto) 0.01 (0.00-0.03) X10*3/uL Absolute Neuts (auto) 4.3 (2.0-8.3) x10*3/uL Absolute Nucleated RBC 0.000 (0.0-0.012) X10*3/uL Nucleated RBC % (auto) 0.0 (0.0-0.2) /100WBC PT (9.9-13.0) SEC INR (0.9-1.1) APTT (24.1-38.0) SEC Sodium (135-145) mmol/L Potassium (3.3-5.1) mmol/L Chloride (96-108) mmol/L Carbon Dioxide (22-29) mmol/L Anion Gap (12-20) BUN (9-16) mg/dL Creatinine (0.5-1.4) mg/dL Estim Creat Clear Calc Estimated GFR POC Glucose 143 H (60-115) mg/dL Random Glucose (60-115) mg/dL Lactic Acid (0.5-2.0) mmol/L Calcium (8.4-10.2) mg/dL Total Bilirubin (0.0-1.0) mg/dL AST (5-37) U/L ALT (0-40) U/L Alkaline Phosphatase (39-117) U/L Total Protein (6.5-8.0) g/dL Albumin (3.5-5.0) g/dL Lipase (8-78) U/L Urine Color Urine Appearance Urine pH (5.0-8.0) Ur Specific [place] (1.005-1.025) Urine Protein (NEG-TRACE) MG/DL Urine Glucose (UA) (NEG) MG/DL Urine Ketones (NEG) MG/DL Urine Blood (NEG) Urine Nitrite (NEG) Ur Leukocyte Esterase (NEG) Urine RBC (0) /HPF Urine WBC (0-4) /HPF Ur Squamous Epith Cells /LPF Urine Bacteria /LPF COVID-19 ([facility]) Cancelled COVID-19 Clin Com Cancelled 09/10/21 09/10/21 09/10/21 Range/Units 15:57 15:57 15:58 WBC (4.8-10.8) X10*3/uL RBC (4.60-5.80) X10*6/uL Hgb (14.0-18.0) g/dl Hct (42.0-52.0) % MCV (80.0-98.0) fL MCH (27.0-33.0) pg MCHC (31.0-36.0) g/dl RDW (11.0-16.0) % Plt Count (160-400) X10*3/uL MPV (9.4-12.4) fL Immature Gran % (Auto) (0.0-0.4) % Neut % (Auto) (45-73) % Lymph % (Auto) (20-40) % [place] % (Auto) (2-11) % Eos % (Auto) (0-4) % Baso % (Auto) (0-2) % Lymph # (Auto) (1.2-4.9) X10*3/uL [place] # (Auto) (0.1-1.2) X10*3/uL Eos # (Auto) (0.0-0.4) X10*3/uL Baso # (Auto) (0.0-0.2) X10*3/uL Abs Immat Gran (auto) (0.00-0.03) X10*3/uL Absolute Neuts (auto) (2.0-8.3) x10*3/uL Absolute Nucleated RBC (0.0-0.012) X10*3/uL Nucleated RBC % (auto) (0.0-0.2) /100WBC PT 14.9 H (9.9-13.0) SEC INR 1.3 H (0.9-1.1) APTT 39.9 H (24.1-38.0) SEC Sodium 152 H (135-145) mmol/L Potassium 4.7 D (3.3-5.1) mmol/L Chloride 111 H (96-108) mmol/L Carbon Dioxide 27 (22-29) mmol/L Anion Gap 19 (12-20) BUN 37 H D (9-16) mg/dL Creatinine 0.81 (0.5-1.4) mg/dL Estim Creat Clear Calc 65.9 Estimated GFR > 60 POC Glucose (60-115) mg/dL Random Glucose 159 H D (60-115) mg/dL Lactic Acid 7.6 H* (0.5-2.0) mmol/L Calcium 9.4 D (8.4-10.2) mg/dL Total Bilirubin 0.8 (0.0-1.0) mg/dL AST 19 D (5-37) U/L ALT 12 (0-40) U/L Alkaline Phosphatase 88 (39-117) U/L Total Protein 6.9 (6.5-8.0) g/dL Albumin 3.5 (3.5-5.0) g/dL Lipase 14 (8-78) U/L Urine Color Urine Appearance Urine pH (5.0-8.0) Ur Specific [place] (1.005-1.025) Urine Protein (NEG-TRACE) MG/DL Urine Glucose (UA) (NEG) MG/DL Urine Ketones (NEG) MG/DL Urine Blood (NEG) Urine Nitrite (NEG) Ur Leukocyte Esterase (NEG) Urine RBC (0) /HPF Urine WBC (0-4) /HPF Ur Squamous Epith Cells /LPF Urine Bacteria /LPF COVID-19 ([facility]) COVID-19 Clin Com 09/10/21 09/10/21 09/10/21 Range/Units 16:24 16:57 17:52 WBC (4.8-10.8) X10*3/uL RBC (4.60-5.80) X10*6/uL Hgb (14.0-18.0) g/dl Hct (42.0-52.0) % MCV (80.0-98.0) fL MCH (27.0-33.0) pg MCHC (31.0-36.0) g/dl RDW (11.0-16.0) % Plt Count (160-400) X10*3/uL MPV (9.4-12.4) fL Immature Gran % (Auto) (0.0-0.4) % Neut % (Auto) (45-73) % Lymph % (Auto) (20-40) % [place] % (Auto) (2-11) % Eos % (Auto) (0-4) % Baso % (Auto) (0-2) % Lymph # (Auto) (1.2-4.9) X10*3/uL [place] # (Auto) (0.1-1.2) X10*3/uL Eos # (Auto) (0.0-0.4) X10*3/uL Baso # (Auto) (0.0-0.2) X10*3/uL Abs Immat Gran (auto) (0.00-0.03) X10*3/uL Absolute Neuts (auto) (2.0-8.3) x10*3/uL Absolute Nucleated RBC (0.0-0.012) X10*3/uL Nucleated RBC % (auto) (0.0-0.2) /100WBC PT (9.9-13.0) SEC INR (0.9-1.1) APTT (24.1-38.0) SEC Sodium (135-145) mmol/L Potassium (3.3-5.1) mmol/L Chloride (96-108) mmol/L Carbon Dioxide (22-29) mmol/L Anion Gap (12-20) BUN (9-16) mg/dL Creatinine (0.5-1.4) mg/dL Estim Creat Clear Calc Estimated GFR POC Glucose (60-115) mg/dL Random Glucose (60-115) mg/dL Lactic Acid 7.9 H* (0.5-2.0) mmol/L Calcium (8.4-10.2) mg/dL Total Bilirubin (0.0-1.0) mg/dL AST (5-37) U/L ALT (0-40) U/L Alkaline Phosphatase (39-117) U/L Total Protein (6.5-8.0) g/dL Albumin (3.5-5.0) g/dL Lipase (8-78) U/L Urine Color YELLOW Urine Appearance CLOUDY Urine pH 6.0 (5.0-8.0) Ur Specific [place] 1.020 (1.005-1.025) Urine Protein 1+ H (NEG-TRACE) MG/DL Urine Glucose (UA) NEG (NEG) MG/DL Urine Ketones 5 (NEG) MG/DL Urine Blood 1+ H (NEG) Urine Nitrite NEG (NEG) Ur Leukocyte Esterase 1+ H (NEG) Urine RBC 5-9 H (0) /HPF Urine WBC 50-75 H (0-4) /HPF Ur Squamous Epith Cells TRACE /LPF Urine Bacteria 1+ /LPF COVID-19 ([facility]) Negative COVID-19 Clin Com See Note Critical Care Time Critical Care Time Critical Care Time: Yes Total Critical Care Time: 80 Attestation: Critical Care: The patient was critically ill with a high probability of imminent or life threatening deterioration. I spent greater than 30 minutes of discontinuous time evaluating the patient,delivering critical care at the bedside, discussing and evaluating pertinent data with consultants. Critical care time does not include time spent performing separately billable procedures or teaching. Total time spent performing critical care was 80 minutes. Discharge Plan Discharge Clinical Impression: Sepsis, Acute dehydration, Urinary tract infection Patient Disposition: Admitted As Inpatient
[2021-09-10 16:45] LABS: WBC Urine 50-75 /HPF (0-4)
[2021-09-10 16:46] LABS: Bacteria Urine 1+ /LPF; Squamous Epithelial Cell Urine TRACE /LPF
[2021-09-10] MEDS: Acetaminophen Supp 650 MG SUPP.RECT PR (17:33)
--- NOTE | 2021-09-10 17:40 | PC.NURSE ---
no change in mentation. still responsive only to painful stimuli.
[2021-09-10 17:45] LABS: COVID-19 Test Negative (Negative)
[2021-09-10 18:03] LABS: Reflex Lactate? Lactic Acid Added
--- NOTE | 2021-09-10 18:12 | PHA.MEDREC ---
Pharmacy Consult ? Medication Reconciliation Pharmacy has completed the medication reconciliation.
[2021-09-10 18:30] LABS: Lactic Acid 7.9 mmol/L (0.5-2.0)
[2021-09-10] MEDS: Dextrose 5 % and 0.45 % NaCl 1,000 ML 125 ML IVCONT (18:50)
--- NOTE | 2021-09-10 19:26 | PC.NURSE ---
3rd L of NS up and running w/o difficulty. site intact. pt sleeping on monitor in NAD. pt awaiting for room assignment. will continue to monitor pt.
[2021-09-10 19:44] LABS: B Type Natriuretic Peptide 20 pg/mL (<100)
[2021-09-10 19:55] LABS: Reflex Lactate? Lactic Acid Added
[2021-09-10] MEDS: iohexoL 350 MG/ML 100 ML INFUS..BTL IV (20:05)
--- NOTE | 2021-09-10 22:21 | PM.IMHP ---
History of Present Illness Date of Service: 09/10/21 Chief Complaint: encephalopathy 76-year-old male with a past medical history of COPD, BPH, dementia, was sent from assisted due to encephalopathy. I am unable to get much history from the patient as he is somnolent, arousable to painful stimuli, but does not answer any questions. According to notes brought in by EMS from assisted patient was found to be altered today and he was found to have oxygen saturation of 70% on room air. He had a similar episode back in July and he felt was found to have sepsis secondary to various infections. Yeah on arrival to the ED patient was found to have a temp 102, heart rate of 121, respiratory rate of 24, satting 91% on OxyMask. Labs are significant for WBC count of 5.5, INR of 1.3, sodium of 152, chloride of 111, BUN of 37, lactic acid of 7.6, UA positive for leukocyte Estrace, and WBC. CT angiogram shows patchy left lower lobe consolidation as well as left perihilar infiltrate patient's start IV antibiotics and will be admitted for further management Review of Systems Review of Systems: Yes Unobtainable due to mental condition and Unobtainable due to mental status [facility] Medical History (Updated 09/11/21 @ 07:27 by Nic Mckoy MD) BPH (benign prostatic hyperplasia) COPD (chronic obstructive pulmonary disease) Dementia Enterococcal bacteremia Pneumonia Family History Mother Alzheimer's dementia Social History Household Members: Other Housing: Prison Do you presently have visiting nurse or other home services: No Unable to assess alcohol history related to: Unable to respond Alcohol intake: unknown Patient Tobacco Use Status: Tobacco use Unknown Use of substances other than those prescribed or required for medical reasons: Unknown Advance Directives: Yes Advance Directives on File: Yes Advance Directives Date on File: 05/29/21 service: No Current occupational status: retired Meds Allergies Allergy/AdvReac Type Severity Reaction Status Date / Time No Known Allergies Allergy Verified 09/10/21 15:29 [No Known Allergies*] Active Medications: Current Medications Dextrose/Sodium Chloride (D51/2ns) 1,000 mls @ 125 mls/hr IVCONT .Q8H SEVERO Last Admin: 09/10/21 18:50 Dose: 125 mls/hr Documented by: Home Medications Medication Instructions Recorded Confirmed Last Taken Type aspirin 81 mg chewable tablet 81 mg PO DAILY 05/28/21 09/10/21 09/10/21 History divalproex 125 mg capsule,delayed 375 mg PO TID 05/28/21 09/10/21 09/10/21 History release sprinkle gabapentin 300 mg capsule 300 mg PO TID 05/28/21 09/10/21 09/10/21 History melatonin 3 mg tablet 6 mg PO BEDTIME 05/28/21 09/10/21 09/09/21 History sennosides 8.6 mg-docusate sodium 1 tab PO BEDTIME 05/28/21 09/10/21 09/09/21 History 50 mg tablet (Senna-S) tamsulosin 0.4 mg capsule 0.8 mg PO BEDTIME 05/28/21 09/10/21 09/09/21 History trazodone 50 mg tablet 50 mg PO BEDTIME 05/28/21 09/10/21 09/09/21 History finasteride 5 mg tablet 1 tab PO DAILY 07/20/21 09/10/21 09/09/21 History acyclovir 200 mg capsule 200 mg PO BID 09/10/21 09/10/21 09/10/21 History Physical Exam Vital Signs and Narrative: Vital Signs: Last Vital Signs Temp 101.3 F H 09/10/21 21:43 Pulse 96 09/10/21 21:43 Resp 20 09/10/21 21:43 BP 99/48 L 09/10/21 21:43 Pulse Ox 98 09/10/21 21:43 BMI result Body Mass Index 25.9 Const: Other: somnolent, arousable to sternal rubs, unable to give much history General: no acute distress Eyes: General: appearance normal, both eyes and all related structures Pupils: Equal, round and reactive pupils present Resp: Other: crackles heard at the left and right lung bases Effort & Inspection: normal respiratory effort Cardio: Rate: regular rate Rhythm: regular rhythm GI: Palpation (GI): Soft to palpation Auscultation: normal bowel sounds Skin: General skin exam: no rashes or lesions noted Neuro: Cranial nerves: Yes Equal, round and reactive pupils present Extrem: General: Yes normal to inspection and Yes no pedal edema Results Labs CBC and Chem 7: 09/11/21 04:14 09/10/21 22:57 Labs: Laboratory Results - last 24 hr 09/10/21 09/10/21 09/10/21 15:27 15:55 15:57 MCV 99.6 H MCH 30.1 MCHC 30.2 L RDW 14.5 Plt Count 179 D MPV 10.4 Immature Gran % (Auto) 0.2 Neut % (Auto) 77.8 H Lymph % (Auto) 15.8 L [place] % (Auto) 5.3 Eos % (Auto) 0.5 Baso % (Auto) 0.4 Lymph # (Auto) 0.9 L [place] # (Auto) 0.3 Eos # (Auto) 0.0 Baso # (Auto) 0.0 Abs Immat Gran (auto) 0.01 Absolute Neuts (auto) 4.3 Absolute Nucleated RBC 0.000 Nucleated RBC % (auto) 0.0 PT INR APTT Anion Gap Estim Creat Clear Calc Estimated GFR POC Glucose 143 H Random Glucose Lactic Acid Calcium Total Bilirubin AST ALT Alkaline Phosphatase B-Natriuretic Peptide Total Protein Albumin Lipase Urine Color Urine Appearance Urine pH Ur Specific [place] Urine Protein Urine Glucose (UA) Urine Ketones Urine Blood Urine Nitrite Ur Leukocyte Esterase Urine RBC Urine WBC Ur Squamous Epith Cells Urine Bacteria COVID-19 ([facility]) Cancelled COVID-19 Clin Com Cancelled 09/10/21 09/10/21 09/10/21 15:57 15:57 15:57 MCV MCH MCHC RDW Plt Count MPV Immature Gran % (Auto) Neut % (Auto) Lymph % (Auto) [place] % (Auto) Eos % (Auto) Baso % (Auto) Lymph # (Auto) [place] # (Auto) Eos # (Auto) Baso # (Auto) Abs Immat Gran (auto) Absolute Neuts (auto) Absolute Nucleated RBC Nucleated RBC % (auto) PT INR APTT Anion Gap 19 Estim Creat Clear Calc 65.9 Estimated GFR > 60 POC Glucose Random Glucose 159 H D Lactic Acid 7.6 H* Calcium 9.4 D Total Bilirubin 0.8 AST 19 D ALT 12 Alkaline Phosphatase 88 B-Natriuretic Peptide 20 Total Protein 6.9 Albumin 3.5 Lipase 14 Urine Color Urine Appearance Urine pH Ur Specific [place] Urine Protein Urine Glucose (UA) Urine Ketones Urine Blood Urine Nitrite Ur Leukocyte Esterase Urine RBC Urine WBC Ur Squamous Epith Cells Urine Bacteria COVID-19 ([facility]) COVID-19 Clin Com 09/10/21 09/10/21 09/10/21 15:58 16:24 16:57 MCV MCH MCHC RDW Plt Count MPV Immature Gran % (Auto) Neut % (Auto) Lymph % (Auto) [place] % (Auto) Eos % (Auto) Baso % (Auto) Lymph # (Auto) [place] # (Auto) Eos # (Auto) Baso # (Auto) Abs Immat Gran (auto) Absolute Neuts (auto) Absolute Nucleated RBC Nucleated RBC % (auto) PT 14.9 H INR 1.3 H APTT 39.9 H Anion Gap Estim Creat Clear Calc Estimated GFR POC Glucose Random Glucose Lactic Acid Calcium Total Bilirubin AST ALT Alkaline Phosphatase B-Natriuretic Peptide Total Protein Albumin Lipase Urine Color YELLOW Urine Appearance CLOUDY Urine pH 6.0 Ur Specific [place] 1.020 Urine Protein 1+ H Urine Glucose (UA) NEG Urine Ketones 5 Urine Blood 1+ H Urine Nitrite NEG Ur Leukocyte Esterase 1+ H Urine RBC 5-9 H Urine WBC 50-75 H Ur Squamous Epith Cells TRACE Urine Bacteria 1+ COVID-19 ([facility]) Negative COVID-19 Clin Com See Note 09/10/21 17:52 MCV MCH MCHC RDW Plt Count MPV Immature Gran % (Auto) Neut % (Auto) Lymph % (Auto) [place] % (Auto) Eos % (Auto) Baso % (Auto) Lymph # (Auto) [place] # (Auto) Eos # (Auto) Baso # (Auto) Abs Immat Gran (auto) Absolute Neuts (auto) Absolute Nucleated RBC Nucleated RBC % (auto) PT INR APTT Anion Gap Estim Creat Clear Calc Estimated GFR POC Glucose Random Glucose Lactic Acid 7.9 H* Calcium Total Bilirubin AST ALT Alkaline Phosphatase B-Natriuretic Peptide Total Protein Albumin Lipase Urine Color Urine Appearance Urine pH Ur Specific [place] Urine Protein Urine Glucose (UA) Urine Ketones Urine Blood Urine Nitrite Ur Leukocyte Esterase Urine RBC Urine WBC Ur Squamous Epith Cells Urine Bacteria COVID-19 ([facility]) COVID-19 Clin Com Imaging Radiologist's Impressions: Impressions Chest X-Ray 09/10/21 16:39 IMPRESSION: Left base pneumonia. Chest CTA 09/10/21 20:04 IMPRESSION: 1. Limited exam but no evidence of pulmonary emboli 2. Patchy left lower lobe consolidation as well as left perihilar infiltrate VTE: Negative, but limited Assessment and Plan (1) Sepsis: Status: Acute (2) Acute dehydration: Status: Acute (3) Urinary tract infection: Status: Acute (4) Pneumonia: Status: Acute (5) Hypernatremia: Status: Acute Plan 76-year-old male with past medical history of dementia, COPD, and history of enterococcal bacteremia presents to the hospital with altered mental status found to have pneumonia as well as UTI # sepsis - likely multifactorial, secondary to UTI as well as pneumonia - UA is positive, chest x-ray shows pneumonia - with treat with vancomycin and Zosyn given history of recent hospitalization - follow cultures # pneumonia - chest x-ray as above - will treat with IV antibiotics - follow cultures # UTI - positive UA - history of proteus infection - will follow cultures # hypernatremia - likely secondary to dehydration - will treat with D5 water - follow BMP # lactic acidosis - secondary to sepsis - IV fluids started - trend will continue home medications DVT prophylaxis: heparin Quality Stroke Does the patient have a stroke diagnosis?: No VTE Prior VTE?: No VTE Risk Level:: Medical - moderate - high VTE Device Contraindication: Treatment Not Indicated VTE Drug Contraindication: N/A - Med Ordered
[2021-09-10 23:19] LABS: ~Lactic Acid-LAB USE ONLY 2.6 mmol/L (0.5-2.0)
[2021-09-10 23:24] LABS: Anion Gap 10 (12-20); Blood Urea Nitrogen 27 mg/dL (9-16); Calcium 7.3 mg/dL (8.4-10.2); Carbon Dioxide 22 mmol/L (22-29); Chloride 121 mmol/L (96-108); Creatinine Clr Calc Pharmacy 92.1; Estimated Glomerular Filt Rate > 60; Glucose Random 127 mg/dL (60-115); Potassium 3.7 mmol/L (3.3-5.1); Sodium 149 mmol/L (135-145)
[2021-09-10] MEDS: Piperacillin Sodium/Tazobactam 3.375 GM in 0.9 % Sodium Chloride 50 ML IV (23:28)
[2021-09-10] MEDS: Heparin Sodium,Porcine 5,000 UNIT/ML VIAL 5000 UNIT SUBCUT (23:31)
[2021-09-10] MEDS: vancomycin HCL 1,250 MG in 0.9 % Sodium Chloride 250 ML 166.67 MG IV (23:31)
[2021-09-11] VITALS (7 sets, daily range): BP systolic 87–156; BP diastolic 52–94; PULSE 84–92; RESP 12–21; TEMP 36.7–36.9; O2SAT 95–98
[2021-09-11] MEDS: 0.9 % Sodium Chloride Flush 3 ML SYRINGE IVFLUSH ×2 (01:00→09:04)
[2021-09-11 01:02] LABS: Reflex Lactate? 2 Y
[2021-09-11] MEDS: Lactated Ringers 1,000 ML 999 ML IV (01:06)
--- NOTE | 2021-09-11 01:08 | PC.NURSE ---
TO OVERFLOW UNIT AT 0020. PT UNRESPONSIVE BUT MOVING ALL EXTREMITIES. KEEPS EYES CLOSED. DOES NOT FOLLOW COMMANDS. AFEBRILE. HEART RATE 80;S. NO RESP DISTRESS. O2 ON VIA 100% MASK AND SATS 97%. O2 CHANGED TO NC AT 5L. O2 SAT ON 5L 94-95%. BP LOW 85/51 MAP 64, 86/54 MAP 65 AND 87/[address] MARTINEZ NOTIFIED AND LACTATED RINGERS ORDERED AND HUNG 999 ML/HR. PT INCONTINENT OF STOOL ON ARRIVAL ZAIRE CARE GIVEN AND PT POSITIONED ON RIGHT SIDE. STOOL IS SOFT BROWN.
[2021-09-11 01:50] LABS: ~Lactic Acid-LAB USE ONLY 2.5 mmol/L (0.5-2.0)
[2021-09-11] MEDS: Dextrose 5 % 1,000 ML 80 ML IVCONT ×2 (03:05→12:16)
[2021-09-11 04:53] LABS: Hemoglobin 12.3 g/dl (14.0-18.0); PLT CLUMP 1; Red Cell Distribution Width 14.5 % (11.0-16.0)
[2021-09-11 04:55] LABS: Hematocrit 40.5 % (42.0-52.0); Mean Corpuscular HGB Conc 30.4 g/dl (31.0-36.0); Mean Corpuscular Hemoglobin 30.1 pg (27.0-33.0); Mean Corpuscular Volume 99.3 fL (80.0-98.0); Mean Platelet Volume 10.5 fL (9.4-12.4); Red Blood Count 4.08 X10*6/uL (4.60-5.80)
[2021-09-11 05:20] LABS: Platelet Count 122 X10*3/uL (160-400); White Blood Count 5.2 X10*3/uL (4.8-10.8)
[2021-09-11 05:45] LABS: Band Neutrophils Percent 14 % (3-5); Basophils Abs Manual 0.1 X10*3/uL (0.0-0.2); Basophils Percent Manual 1 % (0-2); Lymphocytes Absolute Manual 1.1 X10*3/uL (1.2-4.9); Lymphocytes Percent Manual 21 % (20-40); Monocytes Absolute Manual 0.3 X10*3/uL (0.1-1.2); Monocytes Percent Manual 5 % (2-11); Neutrophils Absolute Manual 3.8 X10*3/uL (2.0-8.3); Neutrophils Percent Manual 59 % (45-73)
[2021-09-11 05:47] LABS: Burr Cells 1+ (0-2) /OIF; Ovalocytes 1+ (5-14) /OIF; RBC Morphology NOTED
[2021-09-11 05:48] LABS: Macrocytosis 1+ (5-14) /OIF
[2021-09-11 05:49] LABS: Platelet Estimate DECREASED (NORMAL); Platelet Morphology Comment NORMAL
[2021-09-11] MEDS: Piperacillin Sodium/Tazobactam 3.375 GM in 0.9 % Sodium Chloride 50 ML IV ×4 (06:00→23:29)
--- NOTE | 2021-09-11 06:08 | PC.NURSE ---
bp improved after lactated ringers 1000 ml. currently 112/59. no change in mental status. grimaces to painful stimuli. moves all extremities. does not follow commands.
[2021-09-11] MEDS: Divalproex Sodium Sprinkles 125 MG CAP.DR.SPR 375 MG PO ×3 (09:04→21:24)
[2021-09-11] MEDS: Finasteride 5 MG TABLET PO (09:04)
[2021-09-11] MEDS: Aspirin 81 MG TAB.CHEW PO (09:04)
[2021-09-11] MEDS: Acyclovir 200 MG CAPSULE PO ×2 (09:04→21:30)
[2021-09-11 09:54] LABS: Creatinine Clr Calc Pharmacy 95.4; Estimated Glomerular Filt Rate > 60
--- NOTE | 2021-09-11 10:04 | MHC.CM.PN ---
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 COPY OF IMM WILL BE MAILED CURRENT DC PLAN IS RETURN TO [facility] VIA BLS
--- NOTE | 2021-09-11 10:58 | PHA.PROG ---
Admission Date/Time: September 10, 2021 22:18 Indication: Pneumonia Weight in k.4 kg Adjusted body weight in K.88 kg [place] body weight in K.2 Obesity Dosing Indication % IBW: 116% Serum Creatinine - Last 168 Hours 09/10/21 09/10/21 09/11/21 15:57 22:57 09:31 Creatinine 0.81 0.58 0.56 Estimated CrCl and GFR - Last 168 Hours 09/10/21 09/10/21 09/11/21 15:57 22:57 09:31 Estim Creat Clear Calc 65.9 92.1 95.4 Estimated GFR > 60 > 60 > 60 Vancomycin Loading Dose: N/A Current Vancomycin Dosing Regimen: 1500 mg Q24H Date and Time for next Vancomycin Level to be drawn: 09/12 @ 1500 Pharmacist Comments on Vancomycin Plan: An adequate loading dose was not given to patient. First dose 1250 mg (18 mg/kg), therefore will give mainteance dose vancomycin 1500 mg 18 hours after first dose. Patient renal function is improving. Insight predicts patient may require 1750 mg Q24H may be ideal however this would be 25 mg/kg. Since patient is 76 years old, will start with 1500 mg (20 mg/kg) Q24H to see how it effect renal function. If necessary will increase after random level tomorrow Pharmacy willl monitor renal function daily Aliyah Vazquez PharmD Vancomycin dosing will take advantage of InsightRX as a clinical decision support tool that uses Bayesian modeling to calculate individual patient's pharmacokinetic parameters and forecast the patient's drug concentration time course with the target goal AUC 24 range of 400 - 600 mg/L/hr.
--- NOTE | 2021-09-11 11:36 | PC.NURSE ---
Pt remains at what seems to be baseline per ex who is visiting. Pt medicated per SEP. Meds that were able to be crushed were crushed in applesauce. Pt requesting water this AM. pt given water per MD verbal order. VSS. Callbell and belongins within reach.
--- NOTE | 2021-09-11 11:55 | P.PNIM_ITS ---
Subjective Subjective Date of Service: 09/11/21 Interval History: Baseline nonverbal underlying history of dementia only speaks 1 or 2 words, is bed bound, wheelchair for ambulation, as per ex at bedside he seems significantly better since admission, Review of Systems Review of Systems: Yes Unobtainable due to mental status Physical Exam Vital Signs: Vital Signs: Last Vital Signs Temp 98.4 F 09/11/21 04:37 Pulse 86 09/11/21 09:03 Resp 12 09/11/21 09:03 BP 114/63 09/11/21 09:03 Pulse Ox 98 09/11/21 09:03 BMI result Body Mass Index 25.9 Const: Other: General: Awake pleasantly confused reaching out for sheets Neck is supple Resp:? CTA bilateral CVS: S1,S2,RRR GI: +BS, NT, no distention Skin: No rash Neuro:? Moving all 4 extremities, nonverbal Musculoskeletal no deformity Objective Data Active Medications Acetaminophen (Acetaminophen 325 Mg Tablet) 650 mg PO Q6H PRN PRN Reason: Pain, Mild (Pain Scale 1-3) Acyclovir (Acyclovir 200 Mg Capsule) 200 mg PO BID [facility] Last Admin: 09/11/21 09:04 Dose: 200 mg Documented by: RACHANA Aspirin (Aspirin 81 Mg Tab.Chew) 81 mg PO DAILY [facility] Last Admin: 09/11/21 09:04 Dose: 81 mg Documented by: RACHANA Divalproex Sodium (Divalproex Sodium Sprinkles 125 Mg ) 375 mg PO TID [facility] Last Admin: 09/11/21 09:04 Dose: 375 mg Documented by: RACHANA Docusate Sodium (Docusate Sodium 100 Mg Capsule) 100 mg PO DAILY PRN PRN Reason: Constipation Finasteride (Finasteride 5 Mg Tablet) 5 mg PO DAILY [facility] Last Admin: 09/11/21 09:04 Dose: 5 mg Documented by: RACHANA Heparin Sodium (Porcine) (Heparin Sodium,Porcine 5,000 Unit/Ml Vial) 5,000 unit SUBCUT Q12H [facility] Last Admin: 09/10/21 23:31 Dose: 5,000 unit Documented by: CARYN Piperacillin Sod/Tazobactam (Sod 3.375 gm/ Sodium Chloride) 50 mls @ 100 mls/hr IV Q6H [facility] Last Admin: 09/11/21 06:00 Dose: 100 mls/hr Documented by: RESHMA Dextrose (D5w) 1,000 mls @ 80 mls/hr IVCONT .[id number] [facility] Last Admin: 09/11/21 03:05 Dose: 80 mls/hr Documented by: RESHMA Vancomycin HCl 1,500 mg/ (Sodium Chloride) 500 mls @ 333.333 mls/hr IV Q24H [facility] Melatonin (Melatonin 3 Mg Tablet) 6 mg PO BEDTIME [facility] Ondansetron HCl (Ondansetron Hcl 4 Mg/2 Ml Vial) 4 mg IVPUSH Q8H PRN PRN Reason: Nausea and Vomiting Pharmacy Consult (Consult Rx Vancomycin Dosing) 1 each MISCELLANE DAILY PRN PRN Reason: Consult order Senna/Docusate Sodium (Sennosides/Docusate Sodium Tablet) 1 tab PO BEDTIME [facility] Sodium Chloride (0.9 % Sodium Chloride Flush 3 Ml Syringe) 3 ml IVFLUSH QSHIFT [facility] Last Admin: 09/11/21 09:04 Dose: 3 ml Documented by: RACHANA Tamsulosin HCl (Tamsulosin Hcl 0.4 Mg Capsule) 0.8 mg PO BEDTIME [facility] Trazodone HCl (Trazodone Hcl 50 Mg Tablet) 50 mg PO BEDTIME [facility] Labs CBC & Chem 7: 09/11/21 04:14 09/11/21 09:31 Labs: Laboratory Results - last 24 hr 09/10/21 09/10/21 09/10/21 15:27 15:55 15:57 MCV 99.6 H MCH 30.1 MCHC 30.2 L RDW 14.5 Plt Count 179 D MPV 10.4 Immature Gran % (Auto) 0.2 Neut % (Auto) 77.8 H Lymph % (Auto) 15.8 L [place] % (Auto) 5.3 Eos % (Auto) 0.5 Baso % (Auto) 0.4 Lymph # (Auto) 0.9 L [place] # (Auto) 0.3 Eos # (Auto) 0.0 Baso # (Auto) 0.0 Abs Immat Gran (auto) 0.01 Absolute Neuts (auto) 4.3 Absolute Nucleated RBC 0.000 Nucleated RBC % (auto) 0.0 Neutrophils % (Manual) Band Neutrophils % Lymphocytes % (Manual) Monocytes % (Manual) Basophils % (Manual) Abs Neuts (Manual) Lymphocytes # (Manual) Monocytes # (Manual) Basophils # (Manual) Platelet Estimate Plt Morphology Comment RBC Morphology Macrocytosis Ovalocytes Jorge Cells PT INR APTT Sodium Anion Gap Estim Creat Clear Calc Estimated GFR POC Glucose 143 H Random Glucose Lactic Acid Lactic Acid F/U @ 2Hr Lactic Acid F/U @ 4Hr Calcium Total Bilirubin AST ALT Alkaline Phosphatase B-Natriuretic Peptide Total Protein Albumin Lipase Urine Color Urine Appearance Urine pH Ur Specific [place] Urine Protein Urine Glucose (UA) Urine Ketones Urine Blood Urine Nitrite Ur Leukocyte Esterase Urine RBC Urine WBC Ur Squamous Epith Cells Urine Bacteria COVID-19 (HAILEY) Cancelled TXCOM Com Cancelled 09/10/21 09/10/21 09/10/21 15:57 15:57 15:57 MCV MCH MCHC RDW Plt Count MPV Immature Gran % (Auto) Neut % (Auto) Lymph % (Auto) [place] % (Auto) Eos % (Auto) Baso % (Auto) Lymph # (Auto) [place] # (Auto) Eos # (Auto) Baso # (Auto) Abs Immat Gran (auto) Absolute Neuts (auto) Absolute Nucleated RBC Nucleated RBC % (auto) Neutrophils % (Manual) Band Neutrophils % Lymphocytes % (Manual) Monocytes % (Manual) Basophils % (Manual) Abs Neuts (Manual) Lymphocytes # (Manual) Monocytes # (Manual) Basophils # (Manual) Platelet Estimate Plt Morphology Comment RBC Morphology Macrocytosis Ovalocytes Jorge Cells PT INR APTT Sodium 152 H Anion Gap 19 Estim Creat Clear Calc 65.9 Estimated GFR > 60 POC Glucose Random Glucose 159 H D Lactic Acid 7.6 H* Lactic Acid F/U @ 2Hr Lactic Acid F/U @ 4Hr Calcium 9.4 D Total Bilirubin 0.8 AST 19 D ALT 12 Alkaline Phosphatase 88 B-Natriuretic Peptide 20 Total Protein 6.9 Albumin 3.5 Lipase 14 Urine Color Urine Appearance Urine pH Ur Specific [place] Urine Protein Urine Glucose (UA) Urine Ketones Urine Blood Urine Nitrite Ur Leukocyte Esterase Urine RBC Urine WBC Ur Squamous Epith Cells Urine Bacteria COVID-19 (HAILEY) COVID-IS Decisions Com 09/10/21 09/10/21 09/10/21 15:58 16:24 16:57 MCV MCH MCHC RDW Plt Count MPV Immature Gran % (Auto) Neut % (Auto) Lymph % (Auto) [place] % (Auto) Eos % (Auto) Baso % (Auto) Lymph # (Auto) [place] # (Auto) Eos # (Auto) Baso # (Auto) Abs Immat Gran (auto) Absolute Neuts (auto) Absolute Nucleated RBC Nucleated RBC % (auto) Neutrophils % (Manual) Band Neutrophils % Lymphocytes % (Manual) Monocytes % (Manual) Basophils % (Manual) Abs Neuts (Manual) Lymphocytes # (Manual) Monocytes # (Manual) Basophils # (Manual) Platelet Estimate Plt Morphology Comment RBC Morphology Macrocytosis Ovalocytes Jorge Cells PT 14.9 H INR 1.3 H APTT 39.9 H Sodium Anion Gap Estim Creat Clear Calc Estimated GFR POC Glucose Random Glucose Lactic Acid Lactic Acid F/U @ 2Hr Lactic Acid F/U @ 4Hr Calcium Total Bilirubin AST ALT Alkaline Phosphatase B-Natriuretic Peptide Total Protein Albumin Lipase Urine Color YELLOW Urine Appearance CLOUDY Urine pH 6.0 Ur Specific [place] 1.020 Urine Protein 1+ H Urine Glucose (UA) NEG Urine Ketones 5 Urine Blood 1+ H Urine Nitrite NEG Ur Leukocyte Esterase 1+ H Urine RBC 5-9 H Urine WBC 50-75 H Ur Squamous Epith Cells TRACE Urine Bacteria 1+ COVID-19 (HAILEY) Negative COVID-19 Clin Com See Note 09/10/21 09/10/21 09/10/21 17:52 22:57 22:57 MCV MCH MCHC RDW Plt Count MPV Immature Gran % (Auto) Neut % (Auto) Lymph % (Auto) [place] % (Auto) Eos % (Auto) Baso % (Auto) Lymph # (Auto) [place] # (Auto) Eos # (Auto) Baso # (Auto) Abs Immat Gran (auto) Absolute Neuts (auto) Absolute Nucleated RBC Nucleated RBC % (auto) Neutrophils % (Manual) Band Neutrophils % Lymphocytes % (Manual) Monocytes % (Manual) Basophils % (Manual) Abs Neuts (Manual) Lymphocytes # (Manual) Monocytes # (Manual) Basophils # (Manual) Platelet Estimate Plt Morphology Comment RBC Morphology Macrocytosis Ovalocytes Rena Lara Cells PT INR APTT Sodium 149 H Anion Gap 10 L Estim Creat Clear Calc 92.1 Estimated GFR > 60 POC Glucose Random Glucose 127 H Lactic Acid 7.9 H* Lactic Acid F/U @ 2Hr 2.6 H* Lactic Acid F/U @ 4Hr Calcium 7.3 L D Total Bilirubin AST ALT Alkaline Phosphatase B-Natriuretic Peptide Total Protein Albumin Lipase Urine Color Urine Appearance Urine pH Ur Specific [place] Urine Protein Urine Glucose (UA) Urine Ketones Urine Blood Urine Nitrite Ur Leukocyte Esterase Urine RBC Urine WBC Ur Squamous Epith Cells Urine Bacteria COVID-19 (HAILEY) COVID-19 Mind-[facility] Com 09/11/21 09/11/21 09/11/21 01:27 04:14 09:31 MCV 99.3 H MCH 30.1 MCHC 30.4 L RDW 14.5 Plt Count 122 L D MPV 10.5 Immature Gran % (Auto) Cancelled Neut % (Auto) Cancelled Lymph % (Auto) Cancelled [place] % (Auto) Cancelled Eos % (Auto) Cancelled Baso % (Auto) Cancelled Lymph # (Auto) Cancelled [place] # (Auto) Cancelled Eos # (Auto) Cancelled Baso # (Auto) Cancelled Abs Immat Gran (auto) Cancelled Absolute Neuts (auto) Cancelled Absolute Nucleated RBC 0.000 Nucleated RBC % (auto) 0.0 Neutrophils % (Manual) 59 Band Neutrophils % 14 H Lymphocytes % (Manual) 21 Monocytes % (Manual) 5 Basophils % (Manual) 1 Abs Neuts (Manual) 3.8 Lymphocytes # (Manual) 1.1 L Monocytes # (Manual) 0.3 Basophils # (Manual) 0.1 Platelet Estimate DECREASED Plt Morphology Comment NORMAL RBC Morphology NOTED Macrocytosis 1+ (5-14) Ovalocytes 1+ (5-14) Jorge Cells 1+ (0-2) PT INR APTT Sodium Anion Gap Estim Creat Clear Calc 95.4 Estimated GFR > 60 POC Glucose Random Glucose Lactic Acid Lactic Acid F/U @ 2Hr Lactic Acid F/U @ 4Hr 2.5 H* Calcium Total Bilirubin AST ALT Alkaline Phosphatase B-Natriuretic Peptide Total Protein Albumin Lipase Urine Color Urine Appearance Urine pH Ur Specific [place] Urine Protein Urine Glucose (UA) Urine Ketones Urine Blood Urine Nitrite Ur Leukocyte Esterase Urine RBC Urine WBC Ur Squamous Epith Cells Urine Bacteria COVID-19 (HAILEY) COVID-19 Clin Com Assessment and Plan (1) Hypernatremia: Status: Acute (2) Pneumonia: Status: Acute (3) Sepsis: Status: Acute (4) Acute dehydration: Status: Acute (5) Urinary tract infection: Status: Acute (6) Dementia: Status: Acute Plan 76-year-old male with past medical history? of dementia, COPD, and history of enterococcal bacteremia presents to the hospital with altered mental status found to have pneumonia as well as UTI #? sepsis multifactorial likely due to UTI and pneumonia Met sepsis criteria with fevers, tachycardia, tachypnea and lactic acidosis, blood pressure improved UA is positive, chest x-ray shows pneumonia (history of Proteus mirabilis UTI in July 2021) On IV vancomycin and Zosyn day 2 given history of recent hospitalization follow blood and urine cultures # acute toxic metabolic encephalopathy, likely due to infection and electrolyte abnormality, initially noted to lethargic somnolent not answering questions, at baseline awake and verbalizes 1-2 words As per ex patient is close to baseline #? hypernatremia ? likely secondary to dehydration, with poor by mouth intake sodium improved from 152-140 night continue IV D5W and?follow BMP ?#? lactic acidosis - ? 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 DVT prophylaxis: heparin Patient need inpatient hospitalization due to sepsis and electrolyte abnormality need IV antibiotics, IV fluids and follow up on blood culture Quality Stroke Does the patient have a stroke diagnosis?: No VTE Prior VTE?: No VTE Risk Level:: Medical - moderate - high VTE Device Contraindication: Treatment Not Indicated VTE Drug Contraindication: N/A - Med Ordered
[2021-09-11] MEDS: Heparin Sodium,Porcine 5,000 UNIT/ML VIAL 5000 UNIT SUBCUT ×2 (12:16→23:29)
--- NOTE | 2021-09-11 12:45 | P.CDIC_ITS ---
CDI Concurrent Query Documentation Clarification: PHYSICIAN'S DOCUMENTATION REQUEST Date of Query: 09/11/21 1246 Patient Name: Robe Monreal Admit Date: 09/10/21 Dear Doctor, A review of the medical record indicates additional documentation may be needed. Please review below and update the documentation accordingly. Clinical Indicators: Risk Factors/Clinical Indicators/Treatments Per ED, SAT 70s, hypoxic Oxymask at 10L respiratory rate 28 - 16 CXR: Left basilar infiltrate/pneumonia Recognized standard criteria for respiratory failure includes: (Source: [facility] May 2013) ABGs (1 or more) Symptoms: ? PO2 <60 or RA SpO2 <91% ? Tachypnea, SOB, dyspnea ? PcO2 >50 and pH <7.35 ? Pallor or cyanosis ? pO2 decrease or pcO2 increase ? Anxiety or restlessness by 10 mm/Hg from baseline if known ? Use of accessory muscles ? Retractions (grunting in newborns) ? Unable to speak in complete sentences P/F ratio < 300 Supplemental O2 requirement of 40% or more Intubation is not required Clarify which of the following accurately represents the patient's respiratory status: * Acute respiratory failure * Acute respiratory distress * Hypoxia * Other (please specify) * Unable to determine Please include type if known: * Hypoxic * Hypercapnic * Hypoxic and hypercapnic * Unable to determine Use of terms such as suspected, likely, concern for, or probable (associated with a specific diagnosis that is being evaluated, monitored, or treated as if it exists) are acceptable and can be coded in the inpatient setting, when documented at the time of discharge. Thank you, Thais Tripp RN Extension: [phone] Please use your independent medical judgment in providing your response. THIS QUERY IS PART OF THE PERMANENT MEDICAL RECORD Provider Response: Other Other Diagnosis: hypoxic
[2021-09-11] MEDS: vancomycin HCL 1,500 MG in 0.9 % Sodium Chloride 500 ML 333.33 MG IV (17:48)
[2021-09-11] MEDS: traZODone HCL 50 MG TABLET PO (21:24)
[2021-09-11] MEDS: Tamsulosin HCL 0.4 MG CAPSULE 0.8 MG PO (21:24)
[2021-09-11] MEDS: Melatonin 3 MG TABLET 6 MG PO (21:24)
[2021-09-11] MEDS: Sennosides/Docusate Sodium TABLET 1 TAB PO (21:24)
[2021-09-12 03:51] VITALS: BP 170/79; PULSE 78; RESP 20; TEMP 36.5; O2SAT 100
[2021-09-12] MEDS: Piperacillin Sodium/Tazobactam 3.375 GM in 0.9 % Sodium Chloride 50 ML IV ×4 (04:35→22:14)
[2021-09-12] MEDS: Dextrose 5 % 1,000 ML 80 ML IVCONT ×2 (05:43→22:26)
[2021-09-12 06:50] LABS: Hematocrit 37.2 % (42.0-52.0); Hemoglobin 11.4 g/dl (14.0-18.0); Mean Corpuscular HGB Conc 30.6 g/dl (31.0-36.0); Mean Corpuscular Hemoglobin 30.3 pg (27.0-33.0); Mean Corpuscular Volume 98.9 fL (80.0-98.0); Mean Platelet Volume 10.2 fL (9.4-12.4); Platelet Count 117 X10*3/uL (160-400); Red Blood Count 3.76 X10*6/uL (4.60-5.80); Red Cell Distribution Width 14.2 % (11.0-16.0); White Blood Count 3.3 X10*3/uL (4.8-10.8)
[2021-09-12 07:35] LABS: Anion Gap 9 (12-20); Blood Urea Nitrogen 20 mg/dL (9-16); Calcium 7.9 mg/dL (8.4-10.2); Carbon Dioxide 25 mmol/L (22-29); Chloride 113 mmol/L (96-108); Creatinine Clr Calc Pharmacy 98.9; Estimated Glomerular Filt Rate > 60; Glucose Random 93 mg/dL (60-115); Potassium 3.4 mmol/L (3.3-5.1); Sodium 144 mmol/L (135-145)
[2021-09-12 07:56] VITALS: BP 136/82; PULSE 72; RESP 19; TEMP 36.7; O2SAT 100
--- NOTE | 2021-09-12 09:35 | PC.NURSE ---
Skin/wound assessment completed today. Patient has stage 2 pressure injury on bilateral buttocks and stage 2 pressure injury to left heel. Scattered bruising to bilateral arms and a scabbed abrasion to right marcelo. No other skin issues noted at this time.
[2021-09-12] MEDS: Finasteride 5 MG TABLET PO (10:27)
[2021-09-12] MEDS: Acyclovir 200 MG CAPSULE PO ×2 (10:27→22:13)
[2021-09-12] MEDS: Aspirin 81 MG TAB.CHEW PO (10:27)
[2021-09-12] MEDS: Divalproex Sodium Sprinkles 125 MG CAP.DR.SPR 375 MG PO ×3 (10:27→22:13)
[2021-09-12] MEDS: 0.9 % Sodium Chloride Flush 3 ML SYRINGE IVFLUSH ×2 (10:27→18:47)
[2021-09-12] MEDS: Heparin Sodium,Porcine 5,000 UNIT/ML VIAL 5000 UNIT SUBCUT ×2 (10:31→22:13)
[2021-09-12 12:00] VITALS: BP 185/91; PULSE 72; RESP 20; TEMP 36.5; O2SAT 98
--- NOTE | 2021-09-12 12:57 | P.PNIM_ITS ---
Subjective Subjective Date of Service: 09/12/21 Interval History: No acute issues overnight per nursing Review of Systems Unable to obtain secondary to dementia Physical Exam Vital Signs: Vital Signs: Last Vital Signs Temp 97.7 F 09/12/21 12:00 Pulse 72 09/12/21 12:00 Resp 20 09/12/21 12:00 BP 185/91 H 09/12/21 12:00 Pulse Ox 98 09/12/21 12:00 BMI result Body Mass Index 25.9 Const: Other: Awake alert confused Resp: Other: Scant crackles left base otherwise clear Cardio: Other: No S4; positive S1-S2; no S3 is murmurs rubs or gallops GI: Other: Soft nontender nondistended with normoactive bowel sounds x4 quadrants Extrem: Other: No edema bilaterally Objective Data Active Medications Acetaminophen (Acetaminophen 325 Mg Tablet) 650 mg PO Q6H PRN PRN Reason: Pain, Mild (Pain Scale 1-3) Acyclovir (Acyclovir 200 Mg Capsule) 200 mg PO BID [facility] Last Admin: 09/12/21 10:27 Dose: 200 mg Documented by: CRIS Aspirin (Aspirin 81 Mg Tab.Chew) 81 mg PO DAILY [facility] Last Admin: 09/12/21 10:27 Dose: 81 mg Documented by: CRIS Divalproex Sodium (Divalproex Sodium Sprinkles 125 Mg ) 375 mg PO TID [facility] Last Admin: 09/12/21 10:27 Dose: 375 mg Documented by: CRIS Docusate Sodium (Docusate Sodium 100 Mg Capsule) 100 mg PO DAILY PRN PRN Reason: Constipation Finasteride (Finasteride 5 Mg Tablet) 5 mg PO DAILY [facility] Last Admin: 09/12/21 10:27 Dose: 5 mg Documented by: CRIS Heparin Sodium (Porcine) (Heparin Sodium,Porcine 5,000 Unit/Ml Vial) 5,000 unit SUBCUT Q12H [facility] Last Admin: 09/12/21 10:31 Dose: 5,000 unit Documented by: CRIS Piperacillin Sod/Tazobactam (Sod 3.375 gm/ Sodium Chloride) 50 mls @ 100 mls/hr IV Q6H [facility] Last Infusion: 09/12/21 11:45 Dose: 0 mls/hr Documented by: CRIS Dextrose (D5w) 1,000 mls @ 80 mls/hr IVCONT .[id number] [facility] Last Infusion: 09/12/21 11:46 Dose: 80 mls/hr Documented by: CRIS Vancomycin HCl 1,500 mg/ (Sodium Chloride) 500 mls @ 333.333 mls/hr IV Q24H [facility] Last Infusion: 09/11/21 19:44 Dose: 333.33 mls/hr Documented by: DL Melatonin (Melatonin 3 Mg Tablet) 6 mg PO BEDTIME [facility] Last Admin: 09/11/21 21:24 Dose: 6 mg Documented by: DL Ondansetron HCl (Ondansetron Hcl 4 Mg/2 Ml Vial) 4 mg IVPUSH Q8H PRN PRN Reason: Nausea and Vomiting Pharmacy Consult (Consult Rx Vancomycin Dosing) 1 each MISCELLANE DAILY PRN PRN Reason: Consult order Senna/Docusate Sodium (Sennosides/Docusate Sodium Tablet) 1 tab PO BEDTIME [facility] Last Admin: 09/11/21 21:24 Dose: 1 tab Documented by: DL Sodium Chloride (0.9 % Sodium Chloride Flush 3 Ml Syringe) 3 ml IVFLUSH QSHIFT [facility] Last Admin: 09/12/21 10:27 Dose: 3 ml Documented by: CRIS Tamsulosin HCl (Tamsulosin Hcl 0.4 Mg Capsule) 0.8 mg PO BEDTIME [facility] Last Admin: 09/11/21 21:24 Dose: 0.8 mg Documented by: DL Trazodone HCl (Trazodone Hcl 50 Mg Tablet) 50 mg PO BEDTIME [facility] Last Admin: 09/11/21 21:24 Dose: 50 mg Documented by: DL Labs CBC & Chem 7: 09/12/21 06:09 09/12/21 06:09 Labs: Laboratory Results - last 24 hr 09/12/21 09/12/21 06:09 06:09 MCV 98.9 H MCH 30.3 MCHC 30.6 L RDW 14.2 Plt Count 117 L MPV 10.2 Absolute Nucleated RBC 0.000 Nucleated RBC % (auto) 0.0 Anion Gap 9 L Estim Creat Clear Calc 98.9 Estimated GFR > 60 Random Glucose 93 Calcium 7.9 L D Microbiology Microbiology Results: Microbiology 09/10/21 16:42 Urine Culture - Final Urine clean catch - Urine benz top Proteus mirabilis 09/10/21 15:57 Blood Culture - Preliminary Blood - Venous No growth after 24 hours. 09/10/21 15:55 Blood Culture - Preliminary Blood - Venous No growth after 24 hours. Assessment and Plan (1) Pneumonia: Status: Acute (2) Dementia: Status: Acute (3) Hypernatremia: Status: Acute (4) Urinary tract infection: Status: Acute Plan 76-year-old male with past medical history? of dementia, COPD, and history of enterococcal bacteremia presents to the hospital with altered mental status found to have pneumonia as well as UTI 1.UTI and pneumonia -sespis resolved -Urine [id number] Proteus -continue IV vancomycin and Zosyn(3) given history of recent hospitalization - blood cultures negative 2.Hypernatremia ?-improved - continue D5W x 24hrs -follow renals /divalents 3.Dementia - trazodone and Depakote ? DVT prophylaxis: heparin Patient need inpatient hospitalization due to electrolyte abnormality and need for IV antibiotics/ IV fluids and follow up on blood culture(negative x 24hrs) Quality Stroke Does the patient have a stroke diagnosis?: No VTE Prior VTE?: No VTE Risk Level:: Medical - moderate - high VTE Device Contraindication: Treatment Not Indicated VTE Drug Contraindication: N/A - Med Ordered
[2021-09-12 15:29] LABS: Creatinine Clr Calc Pharmacy 92.1; Estimated Glomerular Filt Rate > 60
[2021-09-12 15:49] VITALS: BP 106/56; PULSE 68; RESP 20; TEMP 37.1; O2SAT 100
--- NOTE | 2021-09-12 16:03 | HE.PHANOTE ---
Trough was 8, checking trough again tomorrow as pt doesnt have high bmi, or cr and age >65
[2021-09-12] MEDS: vancomycin HCL 1,500 MG in 0.9 % Sodium Chloride 500 ML 333.33 MG IV (18:45)
[2021-09-12 20:00] VITALS: BP 123/75; PULSE 73; RESP 17; TEMP 36.3; O2SAT 95
[2021-09-12] MEDS: Tamsulosin HCL 0.4 MG CAPSULE 0.8 MG PO (22:12)
[2021-09-12] MEDS: traZODone HCL 50 MG TABLET PO (22:13)
[2021-09-12] MEDS: Melatonin 3 MG TABLET 6 MG PO (22:13)
[2021-09-12] MEDS: Sennosides/Docusate Sodium TABLET 1 TAB PO (22:14)
[2021-09-13] VITALS: BP 130/65; PULSE 80; RESP 17; TEMP 36.2; O2SAT 97
[2021-09-13 04:00] VITALS: BP 129/60; PULSE 82; RESP 17; TEMP 36.1; O2SAT 97
[2021-09-13] MEDS: Piperacillin Sodium/Tazobactam 3.375 GM in 0.9 % Sodium Chloride 50 ML IV ×2 (05:24→13:01)
[2021-09-13 06:26] LABS: MANUAL DIFF FLAG NO
[2021-09-13 06:32] LABS: Basophils Percent Auto 0.8 % (0-2); Eosinophils Absolute Auto 0.3 X10*3/uL (0.0-0.4); Eosinophils Percent Auto 8.1 % (0-4); Hematocrit 34.5 % (42.0-52.0); Hemoglobin 10.8 g/dl (14.0-18.0); Imm Gran Abs Auto 0.01 X10*3/uL (0.00-0.03); Imm Gran Pct Auto 0.3 % (0.0-0.4); Lymphocytes Absolute Auto 1.1 X10*3/uL (1.2-4.9); Lymphocytes Percent Auto 29.8 % (20-40); Mean Corpuscular HGB Conc 31.3 g/dl (31.0-36.0); Mean Corpuscular Hemoglobin 30.3 pg (27.0-33.0); Mean Corpuscular Volume 96.6 fL (80.0-98.0); Mean Platelet Volume 10.3 fL (9.4-12.4); Monocytes Absolute Auto 0.4 X10*3/uL (0.1-1.2); Monocytes Percent Auto 9.4 % (2-11); Neutrophils Absolute Auto 1.9 x10*3/uL (2.0-8.3); Neutrophils Percent Auto 51.6 % (45-73); Platelet Count 125 X10*3/uL (160-400); Red Blood Count 3.57 X10*6/uL (4.60-5.80); Red Cell Distribution Width 13.9 % (11.0-16.0); White Blood Count 3.7 X10*3/uL (4.8-10.8)
[2021-09-13 07:00] LABS: Alanine Aminotransferase 10 U/L (0-40); Alkaline Phosphatase 56 U/L (39-117); Anion Gap 7 (12-20); Aspartate Amino Transferase 13 U/L (5-37); Bilirubin Total 0.6 mg/dL (0.0-1.0); Blood Urea Nitrogen 12 mg/dL (9-16); Calcium 7.9 mg/dL (8.4-10.2); Carbon Dioxide 27 mmol/L (22-29); Chloride 111 mmol/L (96-108); Creatinine Clr Calc Pharmacy 100.8; Estimated Glomerular Filt Rate > 60; Glucose Fasting 98 mg/dL (60-99); Potassium 3.2 mmol/L (3.3-5.1); Sodium 142 mmol/L (135-145)
[2021-09-13 07:14] LABS: Albumin Level 2.4 g/dL (3.5-5.0); Total Protein 4.5 g/dL (6.5-8.0)
[2021-09-13 08:00] VITALS: BP 128/76; PULSE 65; RESP 17; TEMP 36.1; O2SAT 100
--- NOTE | 2021-09-13 08:19 | HE.PHANOTE ---
ZOSYN - CONTINUE DUE TO RECENT HOSPITALIZATION AND LOW ANC
[2021-09-13] MEDS: Potassium Chloride/H20 10 MEQ/100 ML PIGGYBACK 100 MEQ IV ×4 (10:00→15:21)
[2021-09-13] MEDS: Acyclovir 200 MG CAPSULE PO (10:00)
[2021-09-13] MEDS: 0.9 % Sodium Chloride Flush 3 ML SYRINGE IVFLUSH (10:00)
[2021-09-13] MEDS: Aspirin 81 MG TAB.CHEW PO (10:00)
[2021-09-13] MEDS: Divalproex Sodium Sprinkles 125 MG CAP.DR.SPR 375 MG PO ×2 (10:00→15:27)
[2021-09-13] MEDS: Finasteride 5 MG TABLET PO (10:01)
[2021-09-13] MEDS: Heparin Sodium,Porcine 5,000 UNIT/ML VIAL 5000 UNIT SUBCUT (10:01)
[2021-09-13 10:15] VITALS: O2SAT 96
[2021-09-13 12:00] VITALS: BP 137/71; PULSE 73; RESP 16; TEMP 36.2; O2SAT 98
--- NOTE | 2021-09-13 13:52 | P.DS_ITS ---
DS: Providers Provider Date of Service: 09/13/21 Date of admission: 09/10/21 22:18 Date of discharge: 09/13/21 Primary care physician: Unknown Physician DS: Diagnosis Discharge Diagnosis (1) Pneumonia: Status: Acute (2) Dementia: Status: Acute (3) Hypernatremia: Status: Acute (4) Urinary tract infection: Status: Acute DS: Summary Hospital Course Hospital Course: 76-year-old male? with a past medical history of COPD, BPH, dementia, was sent from care home due to encephalopathy.? I am unable to get much history from the patient as he is somnolent, arousable to painful stimuli, but does not answer any questions.? According to notes brought in by EMS from care home patient was found to be altered today and he was found to have oxygen saturation of 70% on room air.? He had a similar episode back in July and he felt was found to have sepsis secondary to various infections. ? Yeah on arrival to the ED patient was found to have a temp 102, heart rate of 121, respiratory rate of 24, satting 91% on OxyMask. ? Labs are significant for WBC count of 5.5,? INR of 1.3, sodium of 152, chloride of 111, BUN of 37, lactic acid of 7.6, UA positive for leukocyte Estrace, and WBC.? CT angiogram shows patchy left lower lobe consolidation? as well as left perihilar infiltrate Hospital Plan Patient was admitted to the floor and started on IV vancomycin and Zosyn to cover presumed hospital-acquired pneumonia as well as a UTI demonstrating Proteus as previously cultured. He was found to have a free water deficit and this was repleted with IV fluids; subsequent sodium normalized. Clinically, patient continued to improve. On the day of discharge he is afebrile, no white count and suitable for returned back to long-term care Time Spent with Patient Time attestation: Total time spent providing and/or coordinating discharge services: Discharge coordination time: Greater than 30 minutes Quality: Stroke Does the patient have a stroke diagnosis?: No Physical Exam Vital Signs: Vital Signs: Last Vital Signs Temp 97.2 F 09/13/21 12:00 Pulse 73 09/13/21 12:00 Resp 16 09/13/21 12:00 BP 137/71 09/13/21 12:00 Pulse Ox 98 09/13/21 12:00 BMI result Body Mass Index 25.9 Const: Other: Awake alert confused Resp: Other: Scant crackles left base otherwise clear Cardio: Other: No S4; positive S1-S2; no S3 is murmurs rubs or gallops GI: Other: Soft nontender nondistended with normoactive bowel sounds x4 quadrants Extrem: Other: No edema bilaterally DS: Data Data Completed and Pending Labs on day of discharge: Laboratory Results - last 24 hr 09/12/21 09/12/21 09/13/21 15:01 15:01 05:44 WBC 3.7 L RBC 3.57 L Hgb 10.8 L Hct 34.5 L MCV 96.6 MCH 30.3 MCHC 31.3 RDW 13.9 Plt Count 125 L MPV 10.3 Immature Gran % (Auto) 0.3 Neut % (Auto) 51.6 Lymph % (Auto) 29.8 Weston % (Auto) 9.4 Eos % (Auto) 8.1 H Baso % (Auto) 0.8 Lymph # (Auto) 1.1 L Weston # (Auto) 0.4 Eos # (Auto) 0.3 Baso # (Auto) 0.0 Abs Immat Gran (auto) 0.01 Absolute Neuts (auto) 1.9 L Absolute Nucleated RBC 0.000 Nucleated RBC % (auto) 0.0 Sodium Potassium Chloride Carbon Dioxide Anion Gap BUN Creatinine 0.58 Estim Creat Clear Calc 92.1 Estimated GFR > 60 Fasting Glucose Calcium Total Bilirubin AST ALT Alkaline Phosphatase Total Protein Albumin Vancomycin Trough 8.0 L 09/13/21 05:44 WBC RBC Hgb Hct MCV MCH MCHC RDW Plt Count MPV Immature Gran % (Auto) Neut % (Auto) Lymph % (Auto) Weston % (Auto) Eos % (Auto) Baso % (Auto) Lymph # (Auto) Weston # (Auto) Eos # (Auto) Baso # (Auto) Abs Immat Gran (auto) Absolute Neuts (auto) Absolute Nucleated RBC Nucleated RBC % (auto) Sodium 142 Potassium 3.2 L Chloride 111 H Carbon Dioxide 27 Anion Gap 7 L BUN 12 Creatinine 0.53 Estim Creat Clear Calc 100.8 Estimated GFR > 60 Fasting Glucose 98 Calcium 7.9 L Total Bilirubin 0.6 AST 13 ALT 10 Alkaline Phosphatase 56 D Total Protein 4.5 L D Albumin 2.4 L D Vancomycin Trough Preliminary micro results at discharge 09/10/21 15:57 Blood Culture - Preliminary Blood - Venous No growth after 48 hours. 09/10/21 15:55 Blood Culture - Preliminary Blood - Venous No growth after 48 hours. Discharge Plan Discharge Patient Disposition: Xfer Inpatient Rehab Fac Discharge Diagnosis: Urinary tract infection Referrals: [facility] [Other] - 1 Week Physician,Unknown J [Primary Care Provider] - 1 Week Discharge Medications: New amoxicillin-pot clavulanate 875-125 mg tablet 1 tab PO BID Qty: 14 0RF Continued trazodone 50 mg Tablet 50 mg PO BEDTIME 0RF sennosides-docusate sodium [Senna-S] 8.6-50 mg Tablet 1 tab PO BEDTIME 0RF melatonin 3 mg Tablet 6 mg PO BEDTIME 0RF tamsulosin 0.4 mg Capsule 0.8 mg PO BEDTIME 0RF gabapentin 300 mg Capsule 300 mg PO TID 0RF aspirin 81 mg Tablet,Chewable 81 mg PO DAILY 0RF divalproex 125 mg Capsule, Delayed Rel Sprinkle 375 mg PO TID 0RF finasteride 5 mg tablet 1 tab PO DAILY 0RF acyclovir 200 mg Capsule 200 mg PO BID 0RF Discharge Orders: Discharge Order (Routine); Ordered 09/13/21 Ordered By: Jens Jack Diet: advance to usual diet Activity on Discharge: As tolerated Stand Alone Forms: Patient Portal Discharge page Care Plan Goals: Complete course of Augmentin b.i.d. as ordered Health Concerns: Resume pre-hospital care plan along with meds Plan of Treatment: Continue to maintain highest level of function Assessment: As per discharge summary
--- NOTE | 2021-09-13 13:58 | MHC.CLN ---
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 REPORTED HX OF POOR INTAKE. ADDING ENSURE TID TO PROVIDE ADDITIONAL 1050 KCAL, 60 G PROTEIN.
[2021-09-13 14:01] VITALS: BMI 25.9
--- NOTE | 2021-09-13 14:18 | MHC.CM.PN ---
PATIENT IS DISCHARGED BACK TO [facility] TODAY. HCP MADE AWARE ([phone] [place]) CALL BACK NUMBER FOR THIS [employer] LEFT ON VOICE MAIL. RN AND UNIT AWARE OF PLAN.
[2021-09-13 15:42] VITALS: BP 125/62; PULSE 78; RESP 14; TEMP 36.7; O2SAT 99
== END 2021-09-13 17:48 | DRG 871 ==
LOC: HO.ED 18:39 → HO.EDOVER 22:23 → HO.S3 09-11 17:38
PROVIDERS: Hospitalist; Admitting Provider Internal Medicine; Emergency Provider Emergency Medicine Emergency Medical Services; PCP Internal Medicine; Visit Provider Hospitalist
DX: A41.9 Sepsis, unspecified organism (principal); J18.9 Pneumonia, unspecified organism; G92.8 Other toxic encephalopathy; N39.0 Urinary tract infection, site not specified; E87.0 Hyperosmolality and hypernatremia; E87.2 Acidosis; B02.30 Zoster ocular disease, unspecified; E86.0 Dehydration; R13.10 Dysphagia, unspecified; N40.0 Benign prostatic hyperplasia without lower urinary tract symptoms; J44.9 Chronic obstructive pulmonary disease, unspecified; R09.02 Hypoxemia; F03.90 Unspecified dementia, unspecified severity, without behavioral disturbance, psychotic disturbance, mood disturbance, and anxiety; Z74.01 Bed confinement status; Z20.822 Contact with and (suspected) exposure to COVID-19; Z79.82 Long term (current) use of aspirin; Z79.899 Other long term (current) drug therapy
CPT/HCPCS: 36415; 71045; 71275; 80048; 80053; 80202; 81001; 82565; 82947; 83605; 83690; 83880; 85007; 85025; 85027; 85610; 85730; 87040; 87086; 87088; 87186; 87635; 96361; 96365; 96367; 99285; 99291; 99292; C1758; J2543; J3370; Q9967